=== PATIENT | male | born 1955 | race Hispanic/Latino ===

== ENCOUNTER 2018-04-09 07:27 | Inpatient (IN) | payer MEDICARE ==
[~2018-04-09] VITALS: Ht 172.7 cm; Wt 71.8 kg
[2018-04-09 07:59] LABS: BASOPHILS # (AUTO) 0.1 (0.0-0.1); BASOPHILS % 0.3 % (0.0-1.0); EOSINOPHILS # (AUTO) 0.4 (0.0-0.4); EOSINOPHILS % 2.7 % (0.0-6.0); HEMATOCRIT 26.4 % (38.2-49.6); HEMOGLOBIN 8.1 g/dL (14.0-18.0); LYMPHOCYTES % 12.4 % (18.0-39.1); MEAN CORPUSCULAR HEMOGLOBIN 27.9 pg (28-32); MEAN CORPUSCULAR HGB CONC 30.7 g/dL (31-35); MONOCYTES % 6.4 % (4.4-11.3); NEUTROPHILS # (AUTO) 12.6 (2.1-6.9); NEUTROPHILS % 77.5 % (38.7-80.0); PLATELET COUNT 648 x10e3/uL (140-360)
[2018-04-09] MEDS ORDERED: INSULIN REGULAR, HUMAN 100 UNIT/1 ML 3ML VIAL SQ ONE (08:15)
[2018-04-09 08:19] LABS: ALANINE AMINOTRANSFERASE 35 IU/L (0-55); ALBUMIN 1.4 g/dL (3.5-5.0); ALBUMIN/GLOBULIN RATIO 0.2 (0.8-2.0); ALKALINE PHOSPHATASE 93 IU/L (40-150); ANION GAP 16.6 mmol/L (8-16); BLOOD UREA NITROGEN 40 mg/dL (7-26); BUN/CREATININE RATIO 11 (6-25); CALCIUM 9.4 mg/dL (8.4-10.2); CARBON DIOXIDE 20 mmol/L (22-29); CHLORIDE 104 mmol/L (98-107); CREATININE, SERUM 3.52 mg/dL (0.72-1.25); EST GLOMERULAR FILTRATION RATE 18 ML/MIN (60-); GLUCOSE 368 mg/dL (74-118); POTASSIUM 4.6 mmol/L (3.5-5.1); SODIUM 136 mmol/L (136-145)
[2018-04-09 08:39] LABS: ABG HCO3 17 mmol/L (23-28); ABG PCO2 28 mmHg (41-51); ABG PO2 113 mmHg (80-105)
--- NOTE | 2018-04-09 08:39 | Diagnostic Imaging Report ---
EXAM: CHEST 2 VIEWS, PA and lateral DATE: 04/09/2018 Time stamp on exam: 7:57 AM INDICATION: Shortness of breath COMPARISON: None FINDINGS: LINES/TUBES: None LUNGS: Diffuse mixed alveolar and interstitial opacities are present. Findings have an appearance suggesting chronic interstitial lung disease with possible superimposed edema. PLEURA: No effusions or pneumothorax. HEART AND MEDIASTINUM: Normal size and contour. BONES AND SOFT TISSUES: No acute findings. IMPRESSION: Mixed alveolar and interstitial opacities. Signed by: Dr. Esteban Peguero DO on 04/09/2018 8:36 AM
[2018-04-09 08:58] LABS: INR 1.08
[2018-04-09 08:59] LABS: PARTIAL THROMBOPLASTIN TIME 40.4 seconds (23.8-35.5)
[2018-04-09] MEDS ORDERED: ALLOPURINOL100 MG PO (09:26)
[2018-04-09] MEDS ORDERED: NEOMYCIN-POLYMY10 ML (09:32)
[2018-04-09] MEDS ORDERED: LEVEMIR100 UNIT/1 (09:32)
[2018-04-09] MEDS ORDERED: AMLODIPINE BESYL5 MG PO (09:32)
[2018-04-09] MEDS ORDERED: LASIX20 MG PO (09:32)
[2018-04-09] MEDS ORDERED: KETOTIFEN FUMARA5 ML (09:32)
[2018-04-09] MEDS ORDERED: NOVOLOG100 UNITS1 (09:32)
[2018-04-09] MEDS ORDERED: COLCRYS0.6 MG PO (09:32)
[2018-04-09] MEDS ORDERED: RESTASIS1 EACH (09:32)
[2018-04-09] MEDS ORDERED: DEXTROSE 50% SYRINGE 50 ML IV PRN (11:00)
[2018-04-09] MEDS ORDERED: ASPIRIN 81 MG CHEW TAB PO ONE (11:00)
[2018-04-09] MEDS ORDERED: SODIUM CHLORIDE FLUSH 10 ML SYR INJ PRN (11:00)
--- OUTSIDE RECORDS SUMMARY | 2018-04-09 11:11 | XMS REPORT ---
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 Allergies, Adverse Reactions, Alerts This patient has no known allergies or adverse reactions. Medications This patient has no known medications. Results Test Description Test Time Test Comments Text Results Atomic Results Result Comments CHEST 2 VIEWS 2018-04-09 08:34:00 [facility] [address] [place] [address] Patient Name: NELSON COSTELLO MR #: [id number] : 1955 Age/Sex: 62/M Req #: [id number] Adm Physician: Ordered by: RALPH EDWARDS MD Report #: [id number] Location: ER Room/Bed: Procedure: [id number] DX/CHEST 2 VIEWS Exam Date: 04/09/18 Exam Time: 0806 REPORT STATUS: Signed EXAM: CHEST 2 VIEWS, PA and lateral DATE: 04/09/2018 Time stamp on exam: 7:57 AM INDICATION: Shortness of breath COMPARISON: None FINDINGS: LINES/TUBES: None LUNGS: Diffuse mixed alveolar and interstitial opacities are present. Findings have an appearance suggesting chronic interstitial lung disease with possible superimposed edema. PLEURA: No effusions or pneumothorax. HEART AND MEDIASTINUM: Normal size and contour. BONES AND SOFT TISSUES: No acute findings. IMPRESSION: Mixed alveolar and interstitial opacities. Signed by: Dr. Brittany Peguero DO on 04/09/2018 8:36 AM Dictated By: BRITTANY PEGUERO DO 5 Transcribed By: ALONSO on 04/09/18835 COPY TO: RALPH EDWARDS MD
--- NOTE | 2018-04-09 11:31 | Diagnostic Imaging Report ---
EXAM: CT Chest WITHOUT contrast 04/09/2018 10:04 AM INDICATION: Shortness of breath COMPARISON: Chest x-ray, 04/09/2018 TECHNIQUE: Chest was scanned utilizing a multidetector helical scanner from the lung apex through the level of the adrenal glands without administration of IV contrast. Absence of intravenous contrast decreases sensitivity for detection of lymphadenopathy and vascular pathology. Coronal and sagittal reformations were obtained. Routine protocol was performed. Dose modulation, iterative reconstruction, and/or weight based adjustment of the mA/kV was utilized to reduce the radiation dose to as low as reasonably achievable. IV CONTRAST: None RADIATION DOSE: Total DLP: 497.00 mGy*cm Estimated effective dose: (DLP x 0.014 x size factor) mSv COMPLICATIONS: None FINDINGS: LINES/ TUBES: None. LUNGS AND AIRWAYS: There is diffuse interstitial thickening in the lungs, greater on the right, with mild subpleural sparing. No alveolar edema or discrete mass. There is moderate bronchiectasis. Trachea and main bronchi are clear. PLEURA: No pleural effusion, pneumothorax or pleural calcification. HEART AND MEDIASTINUM: The thyroid gland is normal. No mediastinal, hilar or axillary lymphadenopathy. Small scattered mediastinal nodes measuring up to 7 mm precarinal. The heart is normal in size.. There is no pericardial effusion. No thoracic aortic dilatation. Main pulmonary artery measures 2.6 cm, nondilated. Extensive coronary artery calcifications are present. UPPER ABDOMEN: Included portions of the unenhanced liver, spleen, pancreas, adrenals, kidneys and gallbladder are unremarkable. BONES: No acute or suspicious bony lesions. There are degenerative changes in the thoracic spine. SOFT TISSUES: Superficial surrounding soft tissue unremarkable. IMPRESSION: 1. Pulmonary findings suggest neuropathic pulmonary fibrosis, less likely findings related to connective tissue disorder or edema. No pleural effusion. 2. Heart size normal. Extensive coronary artery calcifications. No dilatation of the main pulmonary artery. Signed by: Dr. Conrad Conrad M.D. on 04/09/2018 11:28 AM
[2018-04-09] MEDS: ALBUTEROL SULF 0.083% NEB SOLN 3 ML NEB NEB SCH ×2 (11:45→18:38)
[2018-04-09] MEDS: IPRATROPIUM BROMIDE 0.02% 2.5 ML NEB NEB SCH ×2 (11:45→19:38)
[2018-04-09] MEDS ORDERED: INSULIN REGULAR, HUMAN 100 UNIT/1 ML 3ML VIAL IV ONE (12:15)
[2018-04-09] MEDS: CEFEPIME 1GM/NS 0.9% 50 ML 50 ML IV SCH (12:38)
[2018-04-09] MEDS: AZITHROMYCIN 250 MG TAB PO SCH (13:31)
--- NOTE | 2018-04-09 15:58 | NUR ---
DR TARIQ NOTIFIED OF PT BS 399-GIVE 10 UNITS LISPRO INSULIN
[2018-04-09] MEDS: INSULIN LISPRO 100 UNIT/1 ML 3ML VIAL SQ SCH ×2 (16:06→21:50)
[2018-04-09] MEDS ORDERED: ENOXAPARIN SOD INJ 40 MG/0.4 ML SYR SC SCH (17:00)
[2018-04-09 17:33] VITALS: BP 119/58
--- NOTE | 2018-04-09 17:52 | NUR ---
PATIENT ARRIVED ON THE UNIT AT 1715 FROM THE ER PER BED. PATIENT IS AWAKE, ALERT, AND IN STABLE CONDITION WITH NO S/S OF RESPIRATORY DISTRESS. PATIENT C/O LEFT SHOULDER/BACK PAIN 10/19. IV SALINE LOCKED. 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 TELEMETRY APPLIED. SKINS INTACT. BED ALARM APPLIED. CALL LIGHT IS WITHIN REACH, PATIENT INSTRUCTED TO CALL FOR ASSISTANCE NEEDED.
[2018-04-09] MEDS ORDERED: INFLUENZA VIRUS VAC SPLIT INJ 0.5 ML SYR IM SCH (18:11)
--- NOTE | 2018-04-09 18:20 | NUR ---
CALLED AND SPOKE WITH DR. TARIQ REGARDING PATIENT'S PAIN AND PAIN LEVEL- NEW ORDER RECEIVED. SPOKE TO DR. TARIQ REGARDING PATIENT'S BLOOD GLUCOSE- NEW ORDER RECEIVED. DR. TARIQ IS IN FORMED PATIENT IS REQUESTING FOR VACCINES- OKAY TO GIVE.
[2018-04-09] MEDS: HYDROCODONE/APAP 5MG-325MG TAB PO PRN (18:46)
--- NOTE | 2018-04-09 19:15 | NUR ---
Completed bedside report with morning nurse. Pt alert and orient to name. Pt lying in bed HOB 45 degrees. Denies pain at this time. No acute distress noted. Family at bedside. Call arreola within reach. Will continue to monitor.
[2018-04-09] MEDS ORDERED: PNEUMOCOCCAL VACCINE POLYVALENT 23 MCG/0.5 ML VIAL IM SCH (19:30)
--- NOTE | 2018-04-09 19:31 | NUR ---
PATIENT IS RESTING IN BED- IN STABLE CONDITION WITH NO S/S OF RESPIRATORY DISTRESS. NORCO MEDICATION RECENTLY GIVEN TO PATIENT. TELEMETRY APPLIED. BED ALARM APPLIED. FAMILY MEMBERS PRESENT IN ROOM. BED ALARM ON. CALL LIGHT IS WITHIN REACH, PATIENT INSTRUCTED TO CALL FOR ASSISTANCE NEEDED. REPORT GIVEN TO ONCOMING NURSE.
[2018-04-09 19:50] VITALS: BP 129/61
[2018-04-09 20:40] VITALS: BP 129/61
--- NOTE | 2018-04-09 20:52 | NUR ---
Pulmonary consult [id number] [facility] MD: Saulo PCP: Gilma Sanchez thank you for the interesting consult.
[2018-04-09] MEDS ORDERED: INSULIN GLARGINE 100 UNITS/ML VIAL SQ SCH (21:00)
[2018-04-09] MEDS ORDERED: HEPARIN SOD (PORCINE) 5,000 UNIT/ML VIAL SC SCH (21:00)
[2018-04-09 23:30] VITALS: BP 133/69
[2018-04-10] MEDS: IPRATROPIUM BROMIDE 0.02% 2.5 ML NEB NEB SCH ×4 (00:50→19:42)
[2018-04-10] MEDS: ALBUTEROL SULF 0.083% NEB SOLN 3 ML NEB NEB SCH ×4 (00:50→19:42)
[2018-04-10] MEDS: CEFEPIME 1GM/NS 0.9% 50 ML 50 ML IV SCH ×2 (01:00→12:47)
[2018-04-10] MEDS ORDERED: SODIUM CHLORIDE 0.9% 250ML 250 ML ONE (01:32)
--- NOTE | 2018-04-10 02:42 | Consultation ---
DATE OF CONSULTATION: 04/09/2018 Pulmonary Medicine Consult Note REFERRING PHYSICIAN: Dr. Ric Vernon. PRIMARY CARE PHYSICIAN: Dr. Jayashree Sanchez, Gilma Chin. REASON FOR REFERRAL: Abnormal chest radiography. HISTORY OF PRESENT ILLNESS: Mr. Joseph is a pleasant 62-year-old gentleman with abnormal chest radiography. The patient presented to [facility] on April 09, 2018. The patient had complained of dyspnea. Onset was 15 days ago. Worsening. The patient denies any hemoptysis. No chronic cough. No phlegm. There are allergies, but no GERD and no asthma. The patient is smoking. There is some chronic kidney disease that is under assessment and workup. There is some blindness that the patient deals with. He just saw the doctor who has diagnosed this as retinopathy possibly. The patient has never had knowledge of a previous chest ailment. He thinks his last chest x-ray was about three years ago and he feels it was probably clear, as he was never told anything about it. He comes to the emergency room. Chest x-ray with bilateral diffuse opacities. CT chest shows diffuse thick opacities with a slightly predominant perilymphatic distribution with some reticular spread as well and these are bilateral and diffuse throughout the lungs. There are small areas of honeycombing, mostly in the right upper lobe. There was not a lot of ground-glass opacities. No pets. No known animal exposures. 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 He did not have significant exposures to noxious substances. 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 He was born in [place], [place] and lived in [place], but mostly lived in cities. In the emergency room, 7.39/27/113/17. Oxygen saturation in the emergency room was 91%. PAST MEDICAL HISTORY: Gout, diabetes, hyperlipidemia, hypertension, retinopathy, and chronic eye dryness. HOME MEDICATIONS: Medicine list per record. Include allopurinol for two years. Other blood pressure medicines. ALLERGIES: PENICILLINS REPORTED. FAMILY HISTORY: Noncontributory to this. SOCIAL HISTORY: The patient smoked from age 17 to 62, quitting one month ago. He has 1/4 pack per day over this time. No heavy alcohol. No drugs. REVIEW OF SYSTEMS: GENERAL: No weight change. OPHTHALMOLOGIC: No double vision. ENT: No thyroid disorder. PULMONARY: No hemoptysis. CARDIAC: No heart attack. GI: No constipation. : No blood in urine. DERMATOLOGIC: No rashes. IMMUNOLOGIC: No vasculitis. No connective tissue disease known. NEUROLOGIC: No seizures. PSYCHIATRIC: No depression. PHYSICAL EXAMINATION: VITAL SIGNS: Currently afebrile, vital signs noted and reviewed per the chart record. GENERAL: In no acute distress, alert and calm. HEENT: Normocephalic and atraumatic. NECK: Supple. Throat midline. LUNGS: Bilateral air entry is good, bilateral rales throughout both lungs. CARDIOVASCULAR: S1 and S2. No murmurs, rubs, or gallops. ABDOMEN: Soft and nontender. EXTREMITIES: No clubbing, no cyanosis, and no edema. INTEGUMENT: No purpura and no rash. No vasculitis. PLAN: Potassium 4.6, bicarbonate 20, BUN 40, creatinine 3.5, glucose 268, white count 16, hematocrit 26, and platelets 648. PTT 40.4, PT 15.0, and INR 1.08. LFTs include albumin 1.4, globulin 5.9, and BNP 156. Calcium was 9.4. IMPRESSION/PLAN: Abnormal chest radiography, bilateral diffuse interstitial lung disease, pattern. DIFFERENTIAL DIAGNOSES: Include: 1. Sarcoidosis with other possibilities related to elevated gammaglobulins or other silica dust exposures in the past that were not very clear, less likely amyloid or idiopathic interstitial lung disease. There are other possibilities that are less likely. Cannot rule out drug reaction, as I do not have full list of his home medicines. Less likely pulmonary lymphangiomatosis. 2. Gammaglobulin elevation. 3. Severe protein malnutrition. 4. History of allergies. 5. History of gout. 6. Retinopathy reported. 7. Chronic eye dryness reported, rule out other ailments that may be associated. 8. Hypertension. 9. Hyperlipidemia. 10. Diabetes. 11. Chronic smoker. 12. Screen for connective tissue diseases. Check HIV screen. Check VENUS level in case this is found useful to some. 13. Urinalysis to check for red blood cells. Consider assessing the globulins for any proliferative disorder. If initial studies are unremarkable, consideration can be for invasive procedures, including bronchoscopy if we wish to look for sarcoidosis, especially an infection, although infection seems little bit less likely. Consideration may also be for surgical lung biopsy in the appropriate clinical situation. Screen the sputum for phlegm and culture. Thank you very much, Dr. Vernon and Dr. Sanchez for allowing me the chance to participate in the care of Mr. Joseph. Do not hesitate to contact me if I can help in any way. Dr. Sunday Guzman to cover tomorrow. MD RACHAEL Luke/MODL /[id number]
[2018-04-10 05:45] VITALS: BP 148/71
--- NOTE | 2018-04-10 05:56 | Diagnostic Imaging Report ---
EXAMINATION: CHEST SINGLE (PORTABLE) COMPARISON: CT chest and chest x-ray 04/09/2018 INDICATION: ^PNEUMONIA ^[id number] ^0538 ^Y DISCUSSION: Frontal view of the chest obtained at 0528 hours. HEART AND MEDIASTINUM: The cardiomediastinal silhouette is stable. LINES: None. LUNGS: Widespread interstitial thickening is redemonstrated and similar. No new findings in either lung. PLEURA: No pleural effusion or pneumothorax. BONES AND SOFT TISSUES: Mild degenerative changes of the spine. No focal osseous lesion. The soft tissues are normal. IMPRESSION: Widespread interstitial thickening suggestive of pulmonary fibrosis. No new findings. Signed by: Dr. Jojo Hensley MD on 04/10/2018 5:53 AM
[2018-04-10 06:29] LABS: BASOPHILS % 0.3 % (0.0-1.0); EOSINOPHILS # (AUTO) 0.3 (0.0-0.4); EOSINOPHILS % 2.4 % (0.0-6.0); HEMATOCRIT 22.7 % (38.2-49.6); LYMPHOCYTES # (AUTO) 1.2 (1.0-3.2); LYMPHOCYTES % 8.5 % (18.0-39.1); MEAN CORPUSCULAR HEMOGLOBIN 27.7 pg (28-32); MEAN CORPUSCULAR HGB CONC 30.8 g/dL (31-35); MEAN CORPUSCULAR VOLUME 89.7 fL (81-99); MONOCYTES % 6.6 % (4.4-11.3); NEUTROPHILS # (AUTO) 11.7 (2.1-6.9); NEUTROPHILS % 81.7 % (38.7-80.0); PLATELET COUNT 533 x10e3/uL (140-360); RED BLOOD COUNT 2.53 x10e6/uL (4.3-5.7); RED CELL DISTRIBUTION WIDTH 14.2 % (11.7-14.4)
[2018-04-10 06:46] LABS: CALCIUM 8.8 mg/dL (8.4-10.2); CREATININE, SERUM 3.46 mg/dL (0.72-1.25)
[2018-04-10 07:07] LABS: % IRON SATURATION 8 % (15-50); IRON 19 ug/dL (65-175); TOTAL IRON BINDING CAPACITY 228 ug/dL (261-478); TRANSFERRIN 163 mg/dL (174-364)
[2018-04-10 07:32] LABS: CREATINE KINASE 65 IU/L (30-200)
[2018-04-10 07:42] VITALS: BP 140/75
[2018-04-10 07:50] LABS: HIV 1&2 AB SCREEN NON-REACTIVE (NONREACTIVE)
[2018-04-10] MEDS ORDERED: INFLUENZA VIRUS VAC SPLIT INJ 0.5 ML SYR IM ONE (09:00)
[2018-04-10] MEDS ORDERED: PNEUMOCOCCAL VACCINE POLYVALENT 23 MCG/0.5 ML VIAL IM ONE (09:00)
[2018-04-10] MEDS: AZITHROMYCIN 250 MG TAB PO SCH (09:04)
[2018-04-10 09:06] VITALS: BP 140/75
[2018-04-10] MEDS: INSULIN LISPRO 100 UNIT/1 ML 3ML VIAL SQ SCH ×4 (09:06→22:04)
--- NOTE | 2018-04-10 09:06 | NUR ---
Pt received resting in bed. Alert and oriented x4 but legally blind. Oriented to staff and surroundings, encouraged to press call arreola if help needed. Emotional support given. Fall precautions maintained. Will monitor
[2018-04-10 11:49] VITALS: BP 122/69
[2018-04-10] MEDS ORDERED: SODIUM CHLORIDE 0.9% 50ML 50 ML ONE (12:11)
[2018-04-10] MEDS: IRON SUCROSE 100 MG in SODIUM CHLORIDE 0.9% 100 ML 100 ML IV SCH (14:27)
[2018-04-10] MEDS ORDERED: FUROSEMIDE INJ 10 MG/ML 2 ML VIAL IV PRN (14:45)
--- NOTE | 2018-04-10 14:48 | Progress Note ---
DATE: Pulmonary Critical Care Progress Note I am covering for Dr. Mayes today. SUBJECTIVE: The patient reports some improvement after receiving oxygen and antibiotics. He still has some cough and congestion. OBJECTIVE: VITAL SIGNS: The patient is afebrile. The blood pressure is 122/70 and the pulse is 105. The respiratory rate is 22 and the saturation is 100% on 3 L. HEENT: Shows no facial swelling or erythema. The nasal mucosa is normal. The oropharynx is normal. LYMPHATIC: Shows no submandibular, cervical, or supraclavicular adenopathy. CARDIAC: Reveals a regular rate and rhythm with a normal S1 and S2. LUNGS: Auscultation of lungs reveals crackles in both lung islas. There is no wheezing. ABDOMEN: Soft and nontender. There is no rebound or guarding. EXTREMITIES: Show no leg edema or calf tenderness. There is no cyanosis or clubbing. SKIN: Shows no rashes. NEUROLOGICAL: Shows no focal abnormalities. LABORATORY DATA: White blood count is 14.3 with a hemoglobin of 7 and an MCV of 89. The platelet count is 533. The BUN to creatinine ratio is 40 to 3.5 with a bicarbonate of 20. The calcium is 9.5, the albumin is 1.4, and the globulin is 5.9. Blood sugars are in the 300 to 350 range. Blood gas is 7.4, 28, 113, and 17. RADIOGRAPHIC DATA: CT scan of the chest shows diffuse interstitial thickening in the lungs, more on the right than the left. There is moderate bronchiectasis seen. IMPRESSION: 1. Pulmonary fibrosis and bronchiectasis of unclear etiology. 2. Acute on chronic renal failure. 3. Diabetes. 4. Hypoalbuminemia and proteinuria. 5. Diabetic retinopathy. 6. Hypertension. 7. Normochromic normocytic anemia. PLAN: 1. The bronchiectasis and lymphatic distribution of the fibrosis suggest a possible indolent infectious etiology. Consider bronchoscopy to evaluate for indolent infections. 2. Nephrology evaluation with 24-hour urine for protein. 3. ANCA and other serologies for hepatorenal syndrome. 4. Consider transfusion for anemia. 5. Echocardiogram. 6. Case discussed with the patient, family, and Dr. Vernon. Sunday Guzman MD SIDRA/MODOmar /[id number]
--- NOTE | 2018-04-10 15:10 | NUR ---
Pt stood up to give urine sample, and Sat 89% on 3L NC. Emotional support given. Pt taught deep breathing exercises. Sat 93%. Dr. Mimi Guzman notified, and stated that pt needs one unit of PRBC transfusion, and Lasix [address] Vernon notified, and agrees for blood transfusion. Will follow up
[2018-04-10 15:18] LABS: CLARITY,URINE CLEAR (CLEAR); COLOR,URINE YELLOW (YELLOW); LEUKOCYTE ESTERASE ,URINE NEGATIVE (NEGATIVE); NITRITE,URINE NEGATIVE (NEGATIVE); PROTEIN,URINE DIPSTICK 3+ (NEGATIVE)
[2018-04-10 15:19] LABS: BILIRUBIN,URINE NEGATIVE (NEGATIVE); KETONES,URINE NEGATIVE (NEGATIVE); URINE UROBILINOGEN 0.2 mg/dL (0.2 - 1)
[2018-04-10] MEDS ORDERED: SODIUM CHLORIDE 0.9% 250ML 250 ML IV ONE (15:30)
[2018-04-10 15:57] LABS: AMORPHOUS SEDIMENT,URINE FEW (FEW); EPITHELIAL CELLS,URINE RARE /LPF; RBC,URINE 0-5 /HPF (0-5)
--- NOTE | 2018-04-10 16:10 | NUR ---
Consent obtained for blood transfusion. Will start transfusion as soon as blood is ready
[2018-04-10 16:17] VITALS: BP 147/79
--- NOTE | 2018-04-10 17:20 | NUR ---
First unit of blood transfusion started at 1705. Blood verified by two nurses. Unit number [id number]. No untoward reaction noted after 15 minutes. Will monitor
--- NOTE | 2018-04-10 17:35 | NUR ---
No untoward reaction noted after 30 minutes of blood transfusion. Emotional support given. Will endorse to next shift
--- NOTE | 2018-04-10 19:05 | NUR ---
Bedside rounds completed with morning nurse. Pt alert and orient. Pt receiving 1 unit of blood in 20g right FA, vs stable at 2 hours of admin. Pt denies SOB, O2 at 2L via NC. Pt denies pain at this time. No chills, fever, or changes in health status. Call arreola within reach family at bedside. Will continue to monitor.
[2018-04-10 19:22] LABS: CREATININE,URINE RANDOM 96.61 mg/dL (63-166)
[2018-04-10 19:48] LABS: TOTAL PROTEIN, URINE 592.4 mg/dL (1-14)
--- NOTE | 2018-04-10 20:05 | NUR ---
Pt alert and orient. Receiving neb tx. Pt receiving 1 unit of blood in 20g right FA, vs stable at 3 hours of admin. Pt denies SOB, O2 at 2L via NC. Pt denies pain at this time. No chills, fever, or changes in health status. Call arreola within reach family at bedside. Will continue to monitor.
--- NOTE | 2018-04-10 20:35 | NUR ---
Blood transfusion complete. VS stable. Lasix 20mg IV admin. Pt without fever, chills, or diaphoresis. No n/v/d. Pt denies muscle aches, back pain or chest pain. Lungs CTA. Pt denies pain at this time. Family at bedside. Call arreola within reach. Will continue to monitor.
[2018-04-10 20:50] VITALS: BP 144/75
[2018-04-10] MEDS ORDERED: INSULIN GLARGINE 100 UNITS/ML VIAL SQ SCH (21:00)
--- NOTE | 2018-04-10 21:10 | NUR ---
Nurse called to room. After trying to sit up on side of bed Pt diaphoretic, c/o SOB, rapid uneven respirations. O2 sat decrease to 80% on 2L via NC. Increased O2 6L via NC. Pt breathing with mouth open, anxious. Instructed Pt to slow respirations by inhaling slowly, holding inspiration for a few seconds, and exhaling through pursed lips. O2 increased 94%. Dr. Darling came to room, ordered ABG gases, Lasix 80mg IV, Romero if Pt agrees, call Dr. Mayes for further orders. Pt stable. Call arreola within reach. Family at bedside will continue to monitor.
[2018-04-10] MEDS ORDERED: FUROSEMIDE INJ 10 MG/ML 4 ML VIAL IV ONE (21:30)
--- NOTE | 2018-04-10 21:34 | NUR ---
Dr. Mayes ordered [facility] transfer. ABG drawn by RT, pt tolerated. RT applied non rebreather at 100%. Resp decreased, even and unlabored. Pt stated, "I'm feeling better". HOB 90 degrees. Comforted, Pt calm. No acute distress noted. Pt refused Romero. Call arreola within reach. Family at bedside. Will continue to monitor.
[2018-04-10 21:55] LABS: ABG HCO3 16 mmol/L (23-28); ABG PCO2 27 mmHg (41-51); ABG PH 7.38 (7.31-7.41); ABG PO2 93 mmHg (80-105)
--- NOTE | 2018-04-10 22:00 | NUR ---
Dr. Darling aware of ABG results. Encouraged Romero to reduce Pt OOB as doctor ordered. Attempted to aseptically insert Romero 16fr, Pt stated too painful, removed catheter. Encouraged to use urinal in bed or temporary use of diaper. Pt and family agreed. Pt c/o nonrebreather at 100% too much O2 and drying eyes. Changed to 6L via NC, O2 sat 95%. Pt stable at this. Call arreola within reach. Family at bedside. Will continue to monitor.
--- NOTE | 2018-04-10 23:30 | NUR ---
Report given to [facility] nurse. Pt stable. No acute distress noted. Resting in bed with eyes closed. Call arreola within reach.
--- NOTE | 2018-04-10 23:30 | NUR ---
Received report from nurse. Patient coming from 291 into 187.
[2018-04-11] VITALS (8 sets, daily range): BP systolic 120–140; BP diastolic 67–83
[2018-04-11] MEDS: ALBUTEROL SULF 0.083% NEB SOLN 3 ML NEB NEB SCH
--- NOTE | 2018-04-11 | NUR ---
Patient arrived to floor via stretcher. Family at bedside. Patient is vision impaired. Patient denies pain at this time.
--- NOTE | 2018-04-11 00:45 | NUR ---
Patient offered eagle as Dr ordered. Patient refused eagle at this time. Using urinal.
[2018-04-11] MEDS: IPRATROPIUM BROMIDE 0.02% 2.5 ML NEB NEB SCH ×4 (00:50→18:45)
[2018-04-11] MEDS ORDERED: SODIUM CHLORIDE 0.9% 250ML 250 ML ONE (00:52)
[2018-04-11] MEDS: CEFEPIME 1GM/NS 0.9% 50 ML 50 ML IV SCH ×2 (01:00→12:25)
[2018-04-11 06:00] LABS: BASOPHILS # (AUTO) 0.1 (0.0-0.1); BASOPHILS % 0.3 % (0.0-1.0); EOSINOPHILS # (AUTO) 0.4 (0.0-0.4); EOSINOPHILS % 2.5 % (0.0-6.0); HEMATOCRIT 25.9 % (38.2-49.6); HEMOGLOBIN 8.2 g/dL (14.0-18.0); LYMPHOCYTES # (AUTO) 1.2 (1.0-3.2); LYMPHOCYTES % 8.4 % (18.0-39.1); MEAN CORPUSCULAR HEMOGLOBIN 27.9 pg (28-32); MEAN CORPUSCULAR HGB CONC 31.7 g/dL (31-35); MEAN CORPUSCULAR VOLUME 88.1 fL (81-99); MONOCYTES # (AUTO) 1.1 (0.2-0.8); MONOCYTES % 7.3 % (4.4-11.3); NEUTROPHILS # (AUTO) 11.9 (2.1-6.9); NEUTROPHILS % 80.8 % (38.7-80.0); PLATELET COUNT 514 x10e3/uL (140-360); RED BLOOD COUNT 2.94 x10e6/uL (4.3-5.7); RED CELL DISTRIBUTION WIDTH 14.6 % (11.7-14.4)
[2018-04-11 06:26] LABS: ALBUMIN 1.3 g/dL (3.5-5.0); ALBUMIN/GLOBULIN RATIO 0.2 (0.8-2.0); ANION GAP 14.8 mmol/L (8-16); CALCIUM 9.1 mg/dL (8.4-10.2); CREATININE, SERUM 3.46 mg/dL (0.72-1.25); POTASSIUM 3.8 mmol/L (3.5-5.1)
--- NOTE | 2018-04-11 06:39 | NUR ---
Patient resting quitly in bed with no c/o at this time. Continue monitor.
[2018-04-11 06:57] LABS: ALBUMIN 1.3 g/dL (3.5-5.0); BILIRUBIN,DIRECT 0.2 mg/dL (0.0-0.5)
[2018-04-11 07:31] LABS: FERRITIN 364.87 ng/mL (21.81-274.66)
[2018-04-11] MEDS: INSULIN LISPRO 100 UNIT/1 ML 3ML VIAL SQ SCH ×4 (08:35→20:35)
[2018-04-11] MEDS: AZITHROMYCIN 250 MG TAB PO SCH (08:40)
[2018-04-11] MEDS: IRON SUCROSE 100 MG in SODIUM CHLORIDE 0.9% 100 ML 100 ML IV SCH (13:30)
[2018-04-11] MEDS: FUROSEMIDE INJ 10 MG/ML 4 ML VIAL IV SCH (15:29)
--- NOTE | 2018-04-11 15:41 | NUR ---
Nutrition Screen Note RD Recommendation for Physician: Continue diet as ordered Plan of Care: RD following, monitoring for adequacy and tolerance Nutrition reason for involvement: Nutrition Risk Trigger - MST Primary Diagnose(s): CKD Hypoxemia Ht:68 in Wt:171lbs BMI:26 kg/m2 IBW:154lbs RD Assessment:(04/11/2018) Initial encounter with patient. Pt has a Hx of gout and states that he avoids beef and fish. He also watches his CHO intake due to hyperglycemia. Pt denies any difficulty chewing or swallowing or N,V, D Current Diet:1800 ADA diet Malnutrition Evaluation (04/11/2018) The patient does not meet criteria for a specified degree of malnutrition at this time. Will re-evaluate at follow-up as appropriate. Diet Education Needs Assessment: Diet education not indicated. Diet Adequacy: Meeting calorie needs, Meeting protein needs, Meeting fluid needs Tolerance: Tolerating PO Nutrition Care Level:janki Waldron RD, LD, CNSC
[2018-04-11 17:11] LABS: ANION GAP 16.9 mmol/L (8-16); CALCIUM 9.3 mg/dL (8.4-10.2); CREATININE, SERUM 3.36 mg/dL (0.72-1.25); POTASSIUM 3.9 mmol/L (3.5-5.1)
--- NOTE | 2018-04-11 18:24 | Progress Note ---
DATE: Pulmonary Progress Note SUBJECTIVE: The patient required a unit of blood yesterday. He was transferred to the [facility]. He feels a little better. He has less dizziness and slight improvement in his dyspnea. OBJECTIVE: VITAL SIGNS: The patient is afebrile. The blood pressure is 125/67. Pulse ox is 100% on 4 L. HEENT: Shows no facial swelling or erythema. The nasal mucosa is normal. The oropharynx is normal. LYMPHATIC: Shows no submandibular, cervical, or supraclavicular adenopathy. CARDIAC: Reveals a regular rate and rhythm with a normal S1 and S2. There are no murmurs or rubs. CHEST: Auscultation of lungs reveals crackles in both lung islas. ABDOMEN: Soft, nontender. There is no rebound or guarding. EXTREMITIES: Shows no leg edema or calf tenderness. There is no cyanosis or clubbing. SKIN: Shows no rashes. ASSESSMENT: 1. Pulmonary fibrosis with bronchiectasis of unclear etiology. 2. Nephrotic syndrome. 3. 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 4. Diabetes. 5. Diabetic retinopathy. 6. Anemia. 7. Hypertension. PLAN: 1. The patient is scheduled for bronchoscopy tomorrow along with transbronchial biopsies. 2. The patient will receive DDAVP along with FFP prior to the procedure. 3. Vasculitis serologies and antiglomerular basement membrane antibodies are pending. 4. The patient is going to have a 24-hour urine for protein. 5. [facility] 6. Case discussed with the patient's family, nursing, and Dr. Vernon. 7. Case discussed with Dr. Darling of Nephrology. MD SIDRA Ortiz/VASQUEZ /[id number]
--- NOTE | 2018-04-11 19:04 | NUR ---
Received change of shift report from AM nurse. Report given.
[2018-04-11] MEDS: INSULIN GLARGINE 100 UNITS/ML VIAL SQ SCH (20:36)
[2018-04-12] VITALS (10 sets, daily range): BP systolic 105–124; BP diastolic 63–79
--- NOTE | 2018-04-12 | NUR ---
Patient AAOx3. Pt denies pain at this time. IV to right FA 20G dry,intact, and patent. Patient refused turning, states I turn myself. I sont need help with turning. Family at bedside. Tele SR. O2 at 5L with sat at 100%. No noted SOB at this time. Patient previously refused eagle. Using urinal per asst. Patient NPO after MN. IV to right FA 20G dry and intact. Consent signed for procedure today. BS [address] murray. Patient tolerated well.
[2018-04-12] MEDS: IPRATROPIUM BROMIDE 0.02% 2.5 ML NEB NEB SCH ×4 (00:22→19:00)
[2018-04-12] MEDS: CEFEPIME 1GM/NS 0.9% 50 ML 50 ML IV SCH ×2 (00:30→13:00)
[2018-04-12 05:05] LABS: BASOPHILS # (AUTO) 0.1 (0.0-0.1); BASOPHILS % 0.4 % (0.0-1.0); EOSINOPHILS # (AUTO) 0.5 (0.0-0.4); EOSINOPHILS % 3.4 % (0.0-6.0); HEMATOCRIT 28.6 % (38.2-49.6); HEMOGLOBIN 9.1 g/dL (14.0-18.0); LYMPHOCYTES # (AUTO) 1.6 (1.0-3.2); LYMPHOCYTES % 10.6 % (18.0-39.1); MEAN CORPUSCULAR HEMOGLOBIN 28.4 pg (28-32); MEAN CORPUSCULAR HGB CONC 31.8 g/dL (31-35); MEAN CORPUSCULAR VOLUME 89.4 fL (81-99); MONOCYTES # (AUTO) 1.1 (0.2-0.8); MONOCYTES % 6.9 % (4.4-11.3); NEUTROPHILS # (AUTO) 12.1 (2.1-6.9); NEUTROPHILS % 77.9 % (38.7-80.0); PLATELET COUNT 565 x10e3/uL (140-360); RED CELL DISTRIBUTION WIDTH 14.6 % (11.7-14.4)
[2018-04-12 05:36] LABS: CALCIUM 9.7 mg/dL (8.4-10.2); CREATININE, SERUM 3.73 mg/dL (0.72-1.25)
--- NOTE | 2018-04-12 06:47 | NUR ---
Patient resting quitly with no c/o at this time. Patient received bath and dinen change,
--- NOTE | 2018-04-12 06:55 | NUR ---
Walking rounds done. Patient is awake and alertx3 in NAD. Family at the bedside. POC discussed. Patient is aware he is NPO for planned Bronchoscopy. Bed in lowest position, locked and call arreola within reach. Will continue to monitor.
[2018-04-12] MEDS: INSULIN LISPRO 100 UNIT/1 ML 3ML VIAL SQ SCH ×4 (07:30→20:30)
--- NOTE | 2018-04-12 07:30 | NUR ---
ASSESSMENT: Spiritual concern Referred by RN. Pt worried about illness. Pt states he is "doing better than" when he arrived. Pt accepting of inability to "control this." Pt identifies as Orthodoxy. Pt states his daughters are supportive. Pt states he is thankful for his daughters who urged him to come to hospital. Intervention: Provided hospitality and unhurried empathic listening. Facilitated storytelling and illness review. Provided prayer. Provided information on how to reach bottom turner, if needed. Outcome: Pt expressed appreciation for visit. LUISITO WATSON House Decorator Spiritual Care Department O: [phone] Pager: [phone] ([phone] number calling from)
--- NOTE | 2018-04-12 08:54 | NUR ---
Patient transferred to [facility] from room 291. Holding PT services since patient is transferred to higher level of care. Will need new PT orders when appropriate. Thank you. Addendum: 04/12/18 at 0854 by Nader wharton PT Amended: Links added.
[2018-04-12] MEDS: AZITHROMYCIN 250 MG TAB PO SCH (09:00)
[2018-04-12] MEDS: FUROSEMIDE INJ 10 MG/ML 4 ML VIAL IV SCH (09:00)
--- NOTE | 2018-04-12 09:10 | NUR ---
Patient refused AM medications. He stated, "I want to rest right now and I can take them after my procedure."
--- NOTE | 2018-04-12 09:45 | NUR ---
EDUCATED ABOUT IMM, SIGNED, FILED IN CHART, WITH COPY LEFT WITH FAMILY AT BEDSIDE.
--- NOTE | 2018-04-12 10:00 | NUR ---
Dr. Vernon at the bedside making rounds. He was notified patient refused AM medications including Lasix. No new orders at this time.
[2018-04-12] MEDS ORDERED: SODIUM CHLORIDE 0.9% 250ML 250 ML ONE ×2 (10:19→13:08)
--- NOTE | 2018-04-12 10:30 | NUR ---
Reviewed labs with Dr. Darling. notified him, patient refused AM medications including Lasix. Per Lasix to be held today only and resume as ordered on 04/13/18.
--- NOTE | 2018-04-12 11:00 | NUR ---
Patient tolerated FFP as ordered. continues NPO for planned Bronchoscopy. Family at the bedside.
[2018-04-12] MEDS ORDERED: DESMOPRESSIN ACETATE 4 MCG/ML VIAL IV ONE (13:00)
[2018-04-12] MEDS ORDERED: SODIUM CHLORIDE 0.9% IV ONE (14:00)
[2018-04-12] MEDS ORDERED: DESMOPRESSIN ACETATE IV ONE (14:00)
[2018-04-12] MEDS: IRON SUCROSE 100 MG in SODIUM CHLORIDE 0.9% 100 ML 100 ML IV SCH (14:25)
--- NOTE | 2018-04-12 16:09 | NUR ---
Patient off unit for Bronchoscopy. family at the bedside.
[2018-04-12] MEDS ORDERED: LIDOCAINE HCL 4% 50 ML BTL ONE (16:49)
[2018-04-12] MEDS ORDERED: ACETYLCYSTEINE 200 MG/ML 4ML VIAL ONE (16:49)
[2018-04-12] MEDS ORDERED: EPINEPHRINE HCL 1:1000 1ML 1 MG/ML AMP ONE (16:49)
[2018-04-12] MEDS ORDERED: OXYMETAZOLINE HCL 0.05% NAS 1 SPRAY BTL ONE (16:50)
[2018-04-12] MEDS ORDERED: LIDOCAINE HCL 2% LOCAL INJ 5 ML SDV VIAL INJ ONE (18:12)
[2018-04-12] MEDS ORDERED: PROPOFOL IV EMULSION 10 MG/ML 50 ML VIAL ONE (18:12)
[2018-04-12] MEDS ORDERED: PHENYLEPHRINE HCL 0.5% NASAL 15 ML BTL ONE (18:15)
[2018-04-12] MEDS ORDERED: FENTANYL CITRATE/PF 100MCG/2 ML INJ ONE (18:27)
--- NOTE | 2018-04-12 18:40 | NUR ---
Patient returned from Bronchoscopy. He is fully awake, c/o of non productive cough, and O2 at 5L NC, 94% O2 saturation. Per patient breathing is improved. Family at the bedside. Both patient and family instructed to call for assistance as needed and verbalized understanding. Call arreola within reach. Vital signs are stable.
--- NOTE | 2018-04-12 19:08 | NUR ---
Report received from AM RN Gretchen.Patient received alert/oriented x3.Patient was legally blind. Denied pain and little SOB noted. SPO2 maintained 96% with 4liters oxygen via nasal canula. Family at the bedside. Patient instructed to call fro help as needed. Bed in lower position,locked. Call arreola within reach. Will continue to monitor.
--- NOTE | 2018-04-12 19:51 | Operative Report ---
DATE OF PROCEDURE: SURGEON: Sunday Guzman MD PROCEDURE: Bronchoscopy with bronchoalveolar lavage and transbronchial biopsy. PREOPERATIVE DIAGNOSES: Pulmonary fibrosis and bronchiectasis. POSTOPERATIVE DIAGNOSES: Pulmonary fibrosis and bronchiectasis. ASSISTANTS: None. CONSENT: Consent was obtained from the patient and the family. ANESTHESIA: The Anesthesia service provided MAC sedation and management of the airway with an LMA tube. PROCEDURE IN DETAIL: The patient was placed in supine position. His airway was secured with an LMA. The scope was advanced through the LMA. The glottis appeared normal. The scope was passed through the vocal cords. The tracheal mucosa was normal. The luisa was normal. The left tracheobronchial tree was then examined. The left upper lobe and lingula were normal to the subsegmental level. There were no endobronchial lesions. The left lower lobe was normal to the subsegmental level. There were no endobronchial lesions. Washings were obtained from the left lung. A brushing from microbiology was also obtained from the left upper lobe. The scope was then repositioned into the right tracheobronchial tree. The right upper lobe, right middle lobe, and right lower lobe were all normal to the subsegmental level. There were no endobronchial lesions. The scope was wedged into the lateral basilar subsegment of the right lower lobe. A bronchoalveolar lavage was performed. Fluoroscopy was then used to obtain transbronchial biopsies x4. A microbiology brushing was obtained in the right upper lobe. COMPLICATIONS: None. ESTIMATED BLOOD LOSS: None. Sunday Guzman MD [facility] /[id number]
--- NOTE | 2018-04-12 20:24 | Diagnostic Imaging Report ---
EXAMINATION: CHEST SINGLE (PORTABLE) COMPARISON: Chest x-ray 04/10/2018 INDICATION: Post bronchoscopy ^[id number] ^1735 ^UPRIGHT POST BRONCH TVRBO PER DR RAMOS WDT 04/12/18@1720 DISCUSSION: Frontal view of the chest obtained at 1735 hours. HEART AND MEDIASTINUM: Stable cardiomegaly and aortic ectasia LINES: None. LUNGS: Lung volumes remain low. Diffuse interstitial thickening is redemonstrated. No new findings to suggest consolidation. PLEURA: No pleural effusion or pneumothorax. BONES AND SOFT TISSUES: Osseous structures are stable. The soft tissues are normal. IMPRESSION: 1. No pneumothorax. 2. Low lung volumes in widespread interstitial thickening suggestive of pulmonary fibrosis. No new pulmonary findings. Signed by: Dr. Jojo Hensley MD on 04/12/2018 8:20 PM
[2018-04-12 20:35] LABS: BODY FLUID APPEARANCE CLEAR; BODY FLUID COLOR COLORLESS; BODY FLUID TYPE PLEURAL
[2018-04-12 20:36] LABS: RBC,BODY FLUID 10 cells/uL; WBC,BODY FLUID 9 cells/uL
[2018-04-12] MEDS: INSULIN GLARGINE 100 UNITS/ML VIAL SQ SCH (20:47)
[2018-04-12 21:11] LABS: LYMPHOCYTES,BODY FLUID 10 %; MONO/MACROPHG,BODY FLUID 10 %; NEUTROPHILS,BODY FLUID 60 %; OTHER CELLS,BODY FLUID 20 %
[2018-04-13] VITALS (8 sets, daily range): BP systolic 110–132; BP diastolic 57–70
[2018-04-13] MEDS: IPRATROPIUM BROMIDE 0.02% 2.5 ML NEB NEB SCH ×4 (00:30→18:40)
[2018-04-13] MEDS: CEFEPIME 1GM/NS 0.9% 50 ML 50 ML IV SCH ×2 (00:37→13:00)
[2018-04-13] MEDS: HYDROCODONE/APAP 5MG-325MG TAB PO PRN ×2 (05:02→23:25)
[2018-04-13 05:05] LABS: BASOPHILS # (AUTO) 0.1 (0.0-0.1); BASOPHILS % 0.6 % (0.0-1.0); EOSINOPHILS # (AUTO) 0.5 (0.0-0.4); EOSINOPHILS % 3.5 % (0.0-6.0); HEMOGLOBIN 7.8 g/dL (14.0-18.0); LYMPHOCYTES # (AUTO) 1.5 (1.0-3.2); LYMPHOCYTES % 10.8 % (18.0-39.1); MEAN CORPUSCULAR HEMOGLOBIN 28.1 pg (28-32); MEAN CORPUSCULAR HGB CONC 31.2 g/dL (31-35); MEAN CORPUSCULAR VOLUME 89.9 fL (81-99); MONOCYTES % 7.4 % (4.4-11.3); NEUTROPHILS # (AUTO) 10.5 (2.1-6.9); NEUTROPHILS % 76.8 % (38.7-80.0); PLATELET COUNT 520 x10e3/uL (140-360); RED BLOOD COUNT 2.78 x10e6/uL (4.3-5.7); RED CELL DISTRIBUTION WIDTH 14.6 % (11.7-14.4)
[2018-04-13 05:20] LABS: ANGIOTENSIN CONVERTING ENZYME 37 U/L (14-82)
[2018-04-13 05:23] LABS: INR 1.15; PROTHROMBIN TIME 15.3 seconds (11.9-14.5)
[2018-04-13 05:24] LABS: PARTIAL THROMBOPLASTIN TIME 22.5 seconds (23.8-35.5)
[2018-04-13 05:29] LABS: ALBUMIN 1.4 g/dL (3.5-5.0); ALBUMIN/GLOBULIN RATIO 0.3 (0.8-2.0); ANION GAP 16.7 mmol/L (8-16); CALCIUM 8.9 mg/dL (8.4-10.2); CREATININE, SERUM 3.67 mg/dL (0.72-1.25); PHOSPHORUS 5.5 MG/DL (2.3-4.7); POTASSIUM 3.7 mmol/L (3.5-5.1)
--- NOTE | 2018-04-13 06:39 | NUR ---
Notified Dr. Vernon about patient's Hgb:7.8.NNO.
--- NOTE | 2018-04-13 07:07 | NUR ---
Report given to AM ASHOK Argueta,walking round done.
--- NOTE | 2018-04-13 07:13 | Diagnostic Imaging Report ---
Exam: C-arm assist fluoroscopy for transbronchial lung biopsy. History: Abnormal pulmonary opacities. Comparison: Chest x-ray dated 04/10/2018 Findings: Three images were obtained and scored to the radiologic record. Right lower lung transbronchial biopsy was performed. Fluoroscopy time: 1 minute and 2 seconds Cumulative area dose product: 745.96 cGycm2 Cumulative air kerma: 45.61 mGy Impression: C-arm fluoroscopy assist for transbronchial lung biopsy. Please see the full report provided by the performing physician. Signed by: Dr. Esteban Peguero DO on 04/13/2018 7:10 AM
[2018-04-13] MEDS: INSULIN LISPRO 100 UNIT/1 ML 3ML VIAL SQ SCH ×4 (07:18→20:40)
--- NOTE | 2018-04-13 08:08 | NUR ---
pt resting in bed, no c/o pain or s/s distress. family at bedside. will continue to monitor.
--- NOTE | 2018-04-13 08:12 | NUR ---
dr porras notified of labs, per lab only 1 of 2 ffp units given, per dr porras need to clarify with dr jeter if to give remaining unit. paged .
--- NOTE | 2018-04-13 08:19 | NUR ---
per dr jeter, ffp remaining unit does not need to be admin, was to be preop
[2018-04-13] MEDS: FUROSEMIDE INJ 10 MG/ML 4 ML VIAL IV SCH (09:52)
[2018-04-13] MEDS: AZITHROMYCIN 250 MG TAB PO SCH (09:52)
--- NOTE | 2018-04-13 12:15 | NUR ---
pt ed to provide ua sample, pt spouse discarded urinal before sample obtained, pt ed to not discard any ua and notify pct/nurse. results to be called to dr de los santos. bladder scan to be done post void, pt wants to eat lunch first.
--- NOTE | 2018-04-13 13:51 | NUR ---
dr de los santos wanting labs for antiglobular basement membrane antibody and cryoglobulin, per lab has to be hand written and sent out.
--- NOTE | 2018-04-13 14:13 | NUR ---
CASE MANAGEMENT INITIAL ASSESSMENT Customer Care Coordinator to bedside to discuss plan of care with patient/family. CM/SW role and care transitions discussed. Anticipated discharge plan discussed along with duration of care. CM/SW discussed patients right to make decisions in care. CM/SW work hours given. Patient lives: Admit/Transfer: FROM HOME Hospital/ER visits since last admit:NONE POA/Emergency contact: REG COSTELLO Current/Previous Home Health: NONE PCP/Follow-up Care: DR KRYSTAL MCKINNEY Current/Previous DME: GLUCOMETER, WALKER, VISUAL AIDS Medications (referring to index hospitalization or the first time you were in the hospital)N/A a. Were changes made in your medications when you were in the hospital on [date of index hospitalization]? N/A Note: If no or not sure, please skip to question d b. Did you understand the changes? Yes No Explain: c. Were you able to obtain your new medications right away? Yes No n/a SNF only Explain: d. Were you able to take your medications like the doctor wanted you to? Yes No Explain: e. Did the hospital give you an accurate, easy to understand list of medications when you left? Yes No n/a SNF only Explain: Scale of 1-10 how comfortable does patient feel with disease management in outpatient settin Other Services: NONE Employment Status: RETIRED Areas of Concerns: NONE Referral Needs: TO BE DETERMINED Education Needs: IMM/HUNG given and signed (if applicable): Goal for discharge:HOME WITH SOON POSSIBLE CM/SW left business card at the bedside with contact information. Name and number was also written on the patients whiteboard. Patient verbalized understanding of discussion. CM will follow-up with ongoing discharge and transition of care needs.
[2018-04-13] MEDS: SODIUM CHLORIDE 1 GM TAB PO SCH ×2 (14:16→20:40)
[2018-04-13 14:34] LABS: BILIRUBIN,URINE NEGATIVE (NEGATIVE); CLARITY,URINE SL CLOUDY (CLEAR); COLOR,URINE YELLOW (YELLOW); EPITHELIAL CELLS,URINE FEW /LPF; KETONES,URINE NEGATIVE (NEGATIVE); LEUKOCYTE ESTERASE ,URINE NEGATIVE (NEGATIVE); NITRITE,URINE NEGATIVE (NEGATIVE); PROTEIN,URINE DIPSTICK 2+ (NEGATIVE); RBC,URINE 0-5 /HPF (0-5); URINE UROBILINOGEN 0.2 mg/dL (0.2 - 1); WBC,URINE (MAN) 0-5 /HPF (0-5)
[2018-04-13 16:03] LABS: ANION GAP 15.9 mmol/L (8-16); CALCIUM 9.1 mg/dL (8.4-10.2); CREATININE, SERUM 3.73 mg/dL (0.72-1.25); POTASSIUM 3.9 mmol/L (3.5-5.1)
[2018-04-13] MEDS ORDERED: METHYLPREDNISOLONE SOD SUCC 125 MG/2ML VIAL IV ONE (16:30)
[2018-04-13] MEDS: SODIUM BICARBONATE 650 MG TAB PO SCH (16:40)
--- NOTE | 2018-04-13 19:02 | Progress Note ---
DATE: Pulmonary Progress Note SUBJECTIVE: The patient still complains of dyspnea. He has some cough. PHYSICAL EXAMINATION: VITAL SIGNS: The patient is afebrile. The blood pressure is 132/69 and saturation is 98% on 4 L. HEENT: Shows no facial swelling or erythema. Nasal mucosa is normal. LYMPHATIC: Shows no submandibular, cervical, or supraclavicular adenopathy. CARDIAC: Reveals a regular rate and rhythm with a normal S1 and S2. LUNGS: Auscultation of lungs reveals rhonchorous breath sounds bilaterally. There is no wheezing. ABDOMEN: Soft and nontender. There is no rebound or guarding. EXTREMITIES: Show no leg edema or calf tenderness. There is no cyanosis or clubbing. SKIN: Shows no rashes. NEUROLOGICAL: Shows no focal abnormalities. IMPRESSION: 1. Pulmonary fibrosis with bronchiectasis of unclear etiology. 2. Chronic renal failure stage 4 to 5. 3. Hypoalbuminemia and probable nephrotic syndrome. 4. Diabetes. 5. Anemia, unspecified. 6. Hypertension. PLAN: 1. Await results from bronchoscopy. 2. Solu-Medrol x1 dose. 3. Swallowing evaluation. 4. Monitor blood counts and transfuse packed RBCs if needed. Sunday Guzman MD [facility] /[id number]
[2018-04-13] MEDS: INSULIN GLARGINE 100 UNITS/ML VIAL SQ SCH (20:37)
[2018-04-14] VITALS (13 sets, daily range): BP systolic 107–148; BP diastolic 66–83
[2018-04-14] MEDS: CEFEPIME 1GM/NS 0.9% 50 ML 50 ML IV SCH ×3 (00:28→23:40)
[2018-04-14 06:07] LABS: ALBUMIN 1.5 g/dL (3.5-5.0); ALBUMIN/GLOBULIN RATIO 0.3 (0.8-2.0); ANION GAP 19.3 mmol/L (8-16); CALCIUM 9.7 mg/dL (8.4-10.2); CREATININE, SERUM 3.59 mg/dL (0.72-1.25); POTASSIUM 4.3 mmol/L (3.5-5.1)
[2018-04-14] MEDS: IPRATROPIUM BROMIDE 0.02% 2.5 ML NEB NEB SCH ×3 (07:00→20:00)
--- NOTE | 2018-04-14 07:16 | NUR ---
Report given to oncoming nurse,walking round done.No issued noted.
[2018-04-14 07:29] LABS: BASOPHILS % 0.2 % (0.0-1.0); HEMOGLOBIN 8.7 g/dL (14.0-18.0); LYMPHOCYTES # (AUTO) 0.7 (1.0-3.2); LYMPHOCYTES % 6.7 % (18.0-39.1); MEAN CORPUSCULAR HEMOGLOBIN 28.1 pg (28-32); MEAN CORPUSCULAR HGB CONC 31.1 g/dL (31-35); MEAN CORPUSCULAR VOLUME 90.3 fL (81-99); MONOCYTES # (AUTO) 0.1 (0.2-0.8); MONOCYTES % 0.6 % (4.4-11.3); NEUTROPHILS # (AUTO) 10.1 (2.1-6.9); NEUTROPHILS % 91.6 % (38.7-80.0); PLATELET COUNT 483 x10e3/uL (140-360); RED CELL DISTRIBUTION WIDTH 14.6 % (11.7-14.4)
[2018-04-14] MEDS: INSULIN LISPRO 100 UNIT/1 ML 3ML VIAL SQ SCH ×4 (08:03→21:32)
[2018-04-14] MEDS: SODIUM CHLORIDE 1 GM TAB PO SCH ×3 (09:05→21:37)
[2018-04-14] MEDS: AZITHROMYCIN 250 MG TAB PO SCH (09:05)
[2018-04-14] MEDS: SODIUM BICARBONATE 650 MG TAB PO SCH ×2 (09:05→17:47)
[2018-04-14] MEDS: FUROSEMIDE INJ 10 MG/ML 4 ML VIAL IV SCH (09:14)
--- NOTE | 2018-04-14 14:19 | NUR ---
EDUCATED ABOUT IMM, SIGNED, FILED IN CHART, WITH COPY LEFT WITH FAMILY AT BEDSIDE.
[2018-04-14 15:12] LABS: ANION GAP 20.1 mmol/L (8-16); CALCIUM 9.2 mg/dL (8.4-10.2); CREATININE, SERUM 3.63 mg/dL (0.72-1.25); POTASSIUM 4.1 mmol/L (3.5-5.1)
--- NOTE | 2018-04-14 18:05 | Diagnostic Imaging Report ---
PROCEDURE: X-RAY MODIFIED BARIUM SWALLOW COMPARISON: None. INDICATION: Pulmonary fibrosis. Radiation Details: Fluoroscopy time: 2.6 minutes Cumulative dose: 18.4 mGy DISCUSSION: Fluoroscopic examination was performed in conjunction with speech pathology during swallowing a variety of thin and thick liquid consistencies. Provided images demonstrate laryngeal penetration without aspiration. Mild to moderate vallecular and pyriform sinus residue is noted. CONCLUSION: Modified barium swallow demonstrating laryngeal penetration without aspiration. Please refer to the speech pathology report for further details. Signed by: Dr. Josh Nichole MD on 04/14/2018 6:01 PM
--- NOTE | 2018-04-14 18:31 | Progress Note ---
DATE: Pulmonary Critical Care Progress Note SUBJECTIVE: The patient reports some improvement with Solu-Medrol yesterday, although it made his blood sugar go up. He still reports dyspnea with exertion. He has some cough. He did not complain of chest pain. There are no fevers. PHYSICAL EXAMINATION: VITAL SIGNS: The patient is afebrile. The blood pressure is 144/83 and the saturation is 96% on 3 L. The pulse is 98. HEENT: Shows no facial swelling or erythema. Nasal mucosa is normal. The oropharynx is normal. LYMPHATIC: Shows no submandibular, cervical, or supraclavicular adenopathy. CARDIAC: Reveals regular rate and rhythm with normal S1 and S2. LUNGS: Auscultation of lungs reveals crackles in both lung islas. ABDOMEN: Soft, nontender. There is no rebound or guarding. IMPRESSION: 1. Pulmonary fibrosis with bronchiectasis of unclear etiology. 2. Chronic renal failure, stage 4 to 5. 3. Hypoalbuminemia, probable nephrotic syndrome. 4. Diabetes. 5. Anemia, unspecified. 6. Hypertension. PLAN: 1. Begin Solu-Medrol 1 mg/kg daily. 2. Await results of speech pathology and swallowing evaluation. 3. Await serology results. 4. Transfuse as needed. 5. Monitor and control blood sugars. 6. Case discussed with the patient and family and Dr. Vernon. Sunday Guzman MD [facility] /[id number]
--- NOTE | 2018-04-14 19:00 | NUR ---
Report received from ASHOK adams. Patient resting on his bed.Denied pain and no SOB. No respiratory distress noted, patient continued on 4liters oxygen via nasal canula.Spo2 maintained 98% at this time..Patient in the bed.Bed in lower position,locked. Call arreola within reach. Will continue to monitor.
[2018-04-14] MEDS: INSULIN GLARGINE 100 UNITS/ML VIAL SQ SCH (21:36)
[2018-04-14] MEDS: METHYLPREDNISOLONE SOD SUCC 40 MG/ML VIAL 1ML IV SCH (21:37)
[2018-04-14] MEDS: HYDROCODONE/APAP 5MG-325MG TAB PO PRN (23:40)
[2018-04-15] VITALS (7 sets, daily range): BP systolic 120–151; BP diastolic 69–79
--- NOTE | 2018-04-15 00:30 | NUR ---
Patient complained of heart burn because of sodium chloride pills. Patient said that "I do not want to take sodium chloride any more that make me heart burn and SOB". Called RT for breathing treatment for his SOB.Patient still on 4liters oxygen via nasal canula,Spo2 maintained 99%. Will continue to monitor.
--- NOTE | 2018-04-15 01:15 | NUR ---
No C/O of heart burn and SOB at this time. Patient said he is feeling better after breathing treatment. Patient companied pain on his hand and burning on his eyes. Assisted to medicated for his pain as order and patient put eyes drops on his eyes. Will continue to monitor.
--- NOTE | 2018-04-15 05:12 | NUR ---
Offered for bed bath,patient refused at this time. Patient said that "I wanna wait and rest little more let me take bath in day time".
[2018-04-15 05:50] LABS: BASOPHILS % 0.1 % (0.0-1.0); HEMATOCRIT 26.5 % (38.2-49.6); HEMOGLOBIN 8.3 g/dL (14.0-18.0); LYMPHOCYTES # (AUTO) 0.8 (1.0-3.2); LYMPHOCYTES % 4.5 % (18.0-39.1); MEAN CORPUSCULAR HEMOGLOBIN 27.9 pg (28-32); MEAN CORPUSCULAR HGB CONC 31.3 g/dL (31-35); MEAN CORPUSCULAR VOLUME 89.2 fL (81-99); MONOCYTES # (AUTO) 0.2 (0.2-0.8); NEUTROPHILS # (AUTO) 17.7 (2.1-6.9); NEUTROPHILS % 93.8 % (38.7-80.0); PLATELET COUNT 488 x10e3/uL (140-360); RED BLOOD COUNT 2.97 x10e6/uL (4.3-5.7); RED CELL DISTRIBUTION WIDTH 14.7 % (11.7-14.4)
[2018-04-15 06:10] LABS: ALBUMIN 1.5 g/dL (3.5-5.0); ALBUMIN/GLOBULIN RATIO 0.3 (0.8-2.0); ANION GAP 16.7 mmol/L (8-16); CALCIUM 9.2 mg/dL (8.4-10.2); CREATININE, SERUM 3.85 mg/dL (0.72-1.25); POTASSIUM 4.7 mmol/L (3.5-5.1)
[2018-04-15] MEDS: IPRATROPIUM BROMIDE 0.02% 2.5 ML NEB NEB SCH ×4 (07:00→20:00)
--- NOTE | 2018-04-15 07:19 | NUR ---
Report given to ASHOK Rodriguez,walking round done.
[2018-04-15] MEDS: INSULIN LISPRO 100 UNIT/1 ML 3ML VIAL SQ SCH ×4 (07:57→21:12)
[2018-04-15] MEDS: SODIUM CHLORIDE 1 GM TAB PO SCH ×3 (09:00→21:00)
[2018-04-15] MEDS: FUROSEMIDE INJ 10 MG/ML 4 ML VIAL IV SCH (10:07)
[2018-04-15] MEDS: AZITHROMYCIN 250 MG TAB PO SCH (10:07)
[2018-04-15] MEDS: SODIUM BICARBONATE 650 MG TAB PO SCH ×2 (10:07→19:04)
[2018-04-15] MEDS: METHYLPREDNISOLONE SOD SUCC 40 MG/ML VIAL 1ML IV SCH ×2 (10:07→22:05)
[2018-04-15 11:51] LABS: CLARITY,URINE SL CLOUDY (CLEAR); COLOR,URINE YELLOW (YELLOW); LEUKOCYTE ESTERASE ,URINE NEGATIVE (NEGATIVE); NITRITE,URINE NEGATIVE (NEGATIVE); PROTEIN,URINE DIPSTICK 3+ (NEGATIVE)
[2018-04-15 11:52] LABS: BILIRUBIN,URINE NEGATIVE (NEGATIVE); KETONES,URINE NEGATIVE (NEGATIVE); URINE UROBILINOGEN 0.2 mg/dL (0.2 - 1)
[2018-04-15 12:17] LABS: WBC,URINE (MAN) 0-5 /HPF (0-5)
[2018-04-15 12:18] LABS: AMORPHOUS SEDIMENT,URINE RARE (FEW); BACTERIA,URINE RARE /HPF; EPITHELIAL CELLS,URINE FEW /LPF
[2018-04-15] MEDS ORDERED: LACTULOSE SYRUP 20 GM/30 ML UDC PO NR (12:30)
[2018-04-15] MEDS: FAMOTIDINE 20 MG TAB PO SCH (12:37)
[2018-04-15] MEDS: CEFEPIME 1GM/NS 0.9% 50 ML 50 ML IV SCH (12:45)
[2018-04-15] MEDS: INSULIN GLARGINE 100 UNITS/ML VIAL SQ SCH ×2 (12:45→21:13)
--- NOTE | 2018-04-15 19:13 | NUR ---
Reported critical glucose to Dr. Vernon, made him aware patient given 12 units of Humalog. No new orders received
--- NOTE | 2018-04-15 19:26 | Progress Note ---
DATE: Pulmonary Critical Care Progress Note SUBJECTIVE: The patient reports some improvement with Solu-Medrol. He was down to 3 L, but then walked to take a shower and had to increase the oxygen a little bit. He still has some cough. OBJECTIVE: VITAL SIGNS: The patient is afebrile. The blood pressure is 141/77 and the saturation is 99% on 4 L. HEENT: Shows no facial swelling or erythema. The nasal mucosa is normal. The oropharynx is normal. LYMPHATIC: Shows no submandibular, cervical, or supraclavicular adenopathy. NECK: Shows no JVD or thyromegaly. There is no nuchal rigidity. CARDIAC: Reveals a regular rate and rhythm with a normal S1 and S2. There are no murmurs or rubs. LUNGS: Auscultation of the lungs reveals some crackles in both lung islas. ABDOMEN: Soft and nontender. There is no rebound or guarding. EXTREMITIES: Shows no leg edema or calf tenderness. There is no cyanosis or clubbing. LABORATORY DATA: White blood cell count is 18.8 and the hemoglobin is 8.3. The platelet count is 488. The BUN to creatinine ratio is 77 to 3.8, and the other electrolytes are within normal limits. The blood sugar has been 300 to 400. ASSESSMENT: 1. Pulmonary fibrosis with bronchiectasis of unclear etiology. 2. Chronic renal failure, stage 4-5. 3. Hypoalbuminemia and probable nephrotic syndrome. 4. Diabetes, out of control. 5. Anemia, unspecified. 6. Hypertension. PLAN: 1. Continue Solu-Medrol. 2. Await serology testing. 3. Await bronchoscopy results. 4. Continue to adjust insulin and control blood sugars. 5. Consultation with CT Surgery for possible thoracoscopic biopsy. 6. Case discussed with the patient's family and Dr. Vernon. Sunday Guzman MD [facility] /[id number]
--- NOTE | 2018-04-15 21:20 | NUR ---
called dr Vernon and he called back, regarding patient's insulin result, the MD ordered to give 5 units regular insulin IV in addition to the schedule insulins. and re check insulin level again in 2 hrs.
[2018-04-15] MEDS ORDERED: INSULIN REGULAR, HUMAN 100 UNIT/1 ML 3ML VIAL IV NR (21:30)
[2018-04-16] VITALS (10 sets, daily range): BP systolic 128–153; BP diastolic 62–83
[2018-04-16] MEDS: CEFEPIME 1GM/NS 0.9% 50 ML 50 ML IV SCH ×3 (00:27→23:35)
[2018-04-16] MEDS: IPRATROPIUM BROMIDE 0.02% 2.5 ML NEB NEB SCH ×4 (01:00→19:40)
[2018-04-16 05:11] LABS: BASOPHILS % 0.1 % (0.0-1.0); HEMATOCRIT 27.4 % (38.2-49.6); HEMOGLOBIN 8.5 g/dL (14.0-18.0); LYMPHOCYTES # (AUTO) 0.8 (1.0-3.2); LYMPHOCYTES % 4.8 % (18.0-39.1); MEAN CORPUSCULAR HEMOGLOBIN 27.7 pg (28-32); MEAN CORPUSCULAR VOLUME 89.3 fL (81-99); MONOCYTES # (AUTO) 0.2 (0.2-0.8); MONOCYTES % 1.3 % (4.4-11.3); NEUTROPHILS # (AUTO) 15.9 (2.1-6.9); NEUTROPHILS % 93.1 % (38.7-80.0); PLATELET COUNT 463 x10e3/uL (140-360); RED BLOOD COUNT 3.07 x10e6/uL (4.3-5.7); RED CELL DISTRIBUTION WIDTH 14.6 % (11.7-14.4)
[2018-04-16 07:56] LABS: ANION GAP 20.3 mmol/L (8-16); CREATININE, SERUM 4.04 mg/dL (0.72-1.25); POTASSIUM 4.3 mmol/L (3.5-5.1)
[2018-04-16] MEDS: SODIUM CHLORIDE 1 GM TAB PO SCH ×3 (08:29→21:30)
[2018-04-16] MEDS: AZITHROMYCIN 250 MG TAB PO SCH (08:29)
[2018-04-16] MEDS: METHYLPREDNISOLONE SOD SUCC 40 MG/ML VIAL 1ML IV SCH ×2 (08:29→21:30)
[2018-04-16] MEDS: SODIUM BICARBONATE 650 MG TAB PO SCH ×3 (08:29→21:30)
[2018-04-16] MEDS: FUROSEMIDE 40 MG TAB PO SCH (08:29)
[2018-04-16] MEDS: INSULIN GLARGINE 100 UNITS/ML VIAL SQ SCH ×2 (08:30→21:30)
[2018-04-16] MEDS: INSULIN LISPRO 100 UNIT/1 ML 3ML VIAL SQ SCH ×4 (08:30→21:30)
--- NOTE | 2018-04-16 10:25 | NUR ---
HOME 02 EVARASELI DONE PT'S DESATS TO 70'S ON EXERTION SPOKE WITH DR TARIQ WHO STATES PT WILL NOT BE GOING HOME THIS WEEKEND WILL RE-JAMAR SATS ON THURSDAY
--- NOTE | 2018-04-16 11:30 | NUR ---
patients blood sugar 499, call placed to Dr. Vernon, orders received to administer insulin per sliding scale and give additional dose of lantus 15 units subq now, will continue to monitor
[2018-04-16] MEDS: FAMOTIDINE 20 MG TAB PO SCH (12:20)
--- NOTE | 2018-04-16 14:32 | NUR ---
EDUCATED ABOUT IMM, SIGNED, FILED IN CHART, WITH COPY LEFT WITH FAMILY AT BEDSIDE.
--- NOTE | 2018-04-16 15:09 | Diagnostic Imaging Report ---
EXAM: Renal Ultrasound INDICATION: CHU. COMPARISON: None TECHNIQUE: Transverse and longitudinal images of the kidneys and bladder were obtained. FINDINGS: Right Kidney: Length: Measures 10.8 x 6.3 x 4.7 cm Appearance: Increased echogenicity. Collecting system: No hydronephrosis Stones: None Cyst/Mass: None Left Kidney: Length: Measures 11.4 x 6.1 x 3.8 cm Appearance: Increased echogenicity. Collecting system: No hydronephrosis Stones: None Cyst/Mass: None Bladder: Unremarkable in appearance. Left ureteral jet is visualized. Right ureteral jet is not visualized. IMPRESSION: Echogenic appearance of bilateral kidneys, which can be seen in medical renal disease. No evidence of hydronephrosis. Signed by: Dr. Josh Nichole MD on 04/16/2018 3:06 PM
--- NOTE | 2018-04-16 15:30 | NUR ---
blood sugar 502, lab called for stat glucose, call placed to
[2018-04-16] MEDS ORDERED: INSULIN REGULAR, HUMAN 100 UNIT/1 ML 3ML VIAL IV ONE ×2 (16:15→21:00)
--- NOTE | 2018-04-16 18:05 | NUR ---
Follow-up Note RD Recommendation for Physician: Continue ADA diet as ordered Plan of Care: RD following, monitoring for adequacy and tolerance Nutrition reason for involvement: Follow up Primary Diagnose(s): 1. Pulmonary fibrosis with bronchiectasis of unclear etiology. 2. Chronic renal failure, stage 4-5. 3. Hypoalbuminemia and probable nephrotic syndrome. PMHx: Gout, diabetes, hyperlipidemia, hypertension, retinopathy, and chronic eye dryness. Ht: 68 in Wt: 171lbs; 193.05lb BMI:26 kg/m2 IBW:154lbs RD Assessment: (04/16/2018) Visited pt in the room. Pt reported good appetite with ~75% recorded meal intake. Pt complained of being constipated x 1 week; Notified RN Karlie. Prune juice was given for dinner today. Pt denied any chewing difficulty. LOG HAULER following for therapy. BG 380-500. Currently on insulin and solu-medrol. Will continue to monitor and follow. (04/11/2018) Initial encounter with patient. Pt has a Hx of gout and states that he avoids beef and fish. He also watches his CHO intake due to hyperglycemia. Pt denies any difficulty chewing or swallowing or N,V, D Current Diet: 1800 ADA diet Malnutrition Evaluation (04/11/2018) The patient does not meet criteria for a specified degree of malnutrition at this time. Will re-evaluate at follow-up as appropriate. Diet Education Needs Assessment: Diet education not indicated. Diet Adequacy: Meeting calorie needs, Meeting protein needs, Meeting fluid needs Tolerance: Tolerating PO Nutrition Care Level: low Sonia Son, MS, RD, LD
--- NOTE | 2018-04-16 20:01 | Progress Note ---
DATE: Pulmonary Critical Care Progress Note SUBJECTIVE: The patient still has dyspnea with exertion. He denies any fevers. He has some cough. He also complains of dry eyes and occular problems. OBJECTIVE: VITAL SIGNS: The patient is afebrile. The blood pressure is 128/62 and respiratory rate is 18. The saturation is 98%. HEENT: No facial swelling or erythema. The nasal mucosa is normal. The oropharynx is normal. LYMPHATIC: No submandibular, cervical, or supraclavicular adenopathy. CARDIAC: Regular rate and rhythm with a normal S1 and S2. LUNGS: Auscultation of lungs reveals crackles in both lung islas. ABDOMEN: Soft and nontender. IMPRESSION: 1. Pulmonary fibrosis. 2. Bronchiectasis. 3. Chronic renal failure, stage 4 to 5. 4. Probable nephrotic syndrome. 5. Hypoalbuminemia. PLAN: 1. The patient to be evaluated for thoracoscopic biopsy. 2. Continue Solu-Medrol. 3. Continue current antibiotics. 4. Continue current treatment of renal disease. 5. Monitor blood sugars. Sunday Guzman MD [facility] /[id number]
[2018-04-16] MEDS ORDERED: LACTULOSE SYRUP 20 GM/30 ML UDC PO ONE (21:00)
[2018-04-16] MEDS ORDERED: INSULIN GLARGINE 100 UNITS/ML VIAL SQ SCH (21:00)
--- NOTE | 2018-04-16 21:00 | NUR ---
Notified Dr. Vernon of critical blood glucose 542. Orders received. Dr. Vernon requested to recheck blood glucose in 2 hours and call back if > 400. Orders also received for constipation.
[2018-04-17] MEDS: IPRATROPIUM BROMIDE 0.02% 2.5 ML NEB NEB SCH ×4 (02:50→19:20)
[2018-04-17 04:00] VITALS: BP 135/86
[2018-04-17 05:54] LABS: BASOPHILS % 0.1 % (0.0-1.0); HEMATOCRIT 26.8 % (38.2-49.6); HEMOGLOBIN 8.4 g/dL (14.0-18.0); LYMPHOCYTES # (AUTO) 0.9 (1.0-3.2); LYMPHOCYTES % 5.3 % (18.0-39.1); MEAN CORPUSCULAR HEMOGLOBIN 28.2 pg (28-32); MEAN CORPUSCULAR HGB CONC 31.3 g/dL (31-35); MEAN CORPUSCULAR VOLUME 89.9 fL (81-99); MONOCYTES # (AUTO) 0.4 (0.2-0.8); MONOCYTES % 2.5 % (4.4-11.3); NEUTROPHILS # (AUTO) 15.8 (2.1-6.9); NEUTROPHILS % 91.5 % (38.7-80.0); PLATELET COUNT 438 x10e3/uL (140-360); RED BLOOD COUNT 2.98 x10e6/uL (4.3-5.7); RED CELL DISTRIBUTION WIDTH 14.7 % (11.7-14.4)
[2018-04-17 06:14] LABS: ALBUMIN 1.6 g/dL (3.5-5.0); ALBUMIN/GLOBULIN RATIO 0.3 (0.8-2.0); ANION GAP 15.4 mmol/L (8-16); CALCIUM 8.7 mg/dL (8.4-10.2); CREATININE, SERUM 3.77 mg/dL (0.72-1.25); POTASSIUM 4.4 mmol/L (3.5-5.1)
[2018-04-17] MEDS: INSULIN LISPRO 100 UNIT/1 ML 3ML VIAL SQ SCH ×4 (07:35→21:01)
[2018-04-17 07:51] VITALS: BP 148/77
[2018-04-17] MEDS: INSULIN GLARGINE 100 UNITS/ML VIAL SQ SCH ×2 (09:14→20:59)
[2018-04-17] MEDS: AZITHROMYCIN 250 MG TAB PO SCH (09:17)
[2018-04-17] MEDS: SODIUM CHLORIDE 1 GM TAB PO SCH (09:17)
[2018-04-17] MEDS: METHYLPREDNISOLONE SOD SUCC 40 MG/ML VIAL 1ML IV SCH ×2 (09:17→21:01)
[2018-04-17] MEDS: FUROSEMIDE 40 MG TAB PO SCH (09:17)
[2018-04-17] MEDS: SODIUM BICARBONATE 650 MG TAB PO SCH ×3 (09:17→21:01)
[2018-04-17] MEDS: FAMOTIDINE 20 MG TAB PO SCH (11:48)
[2018-04-17 12:15] VITALS: BP 141/76
[2018-04-17] MEDS: CEFEPIME 1GM/NS 0.9% 50 ML 50 ML IV SCH (12:22)
[2018-04-17 16:17] VITALS: BP 157/90
[2018-04-17 18:12] LABS: CREATININE,URINE RANDOM 38.39 mg/dL (63-166)
--- NOTE | 2018-04-17 18:12 | Diagnostic Imaging Report ---
EXAMINATION: CHEST 2 VIEWS INDICATION: Hypoxia ^Pulm Fibrosis ^[id number] ^1735 COMPARISON: Multiple chest x-rays extending back to 04/09/2018, the most recent is 04/12/2018 FINDINGS: PA and lateral views TUBES and LINES: None. LUNGS: Lung volumes are low. Extensive interstitial thickening is redemonstrated. Alveolar airspace opacities have improved. PLEURA: No pleural effusion or pneumothorax. HEART AND MEDIASTINUM: The cardiomediastinal silhouette is unremarkable.. BONES AND SOFT TISSUES: Degenerative changes of the spine. No focal osseous lesions. Soft tissues are unremarkable. UPPER ABDOMEN: There is barium throughout the visualized colon from previous radiographic procedure. No dilatation. No free air. IMPRESSION: Low lung volumes with findings of pulmonary fibrosis. Alveolar airspace opacities have improved. No new cardiopulmonary findings. Signed by: Dr. Jojo Hensley MD on 04/17/2018 6:09 PM
[2018-04-17 19:43] VITALS: BP 131/68
[2018-04-17 19:46] VITALS: BP 131/68
--- NOTE | 2018-04-17 19:46 | NUR ---
Received patient from day nurse, patient is alert and oriented x 3, patient is connected to oxygen, patient family at bed side, patient is currently fairly stable, will continue to care.
[2018-04-17 22:52] LABS: TOTAL PROTEIN 24HR, URINE 9104.1 mg/24hr (50-100); TOTAL PROTEIN, URINE 291.8 mg/dL (1-14)
--- NOTE | 2018-04-17 22:57 | Progress Note ---
DATE: Pulmonary Progress Note SUBJECTIVE: The patient has some improvement. He is decreased to 3 L. He still complains of eye problems. PHYSICAL EXAMINATION: VITAL SIGNS: The patient is afebrile. The blood pressure is 141/76. Saturation is 96% on 3 L. HEENT: Shows no facial swelling or erythema. Nasal mucosa is normal. LYMPHATIC: Shows no submandibular, cervical, or supraclavicular adenopathy. CARDIAC: Reveals regular rate and rhythm with normal S1 and S2. LUNGS: Auscultation of lungs reveals crackles at the bases. There is no wheezing. ABDOMEN: Soft and nontender. There is no rebound or guarding. EXTREMITIES: Show no leg edema or calf tenderness. IMPRESSION: 1. Pulmonary fibrosis. 2. Bronchiectasis. 3. Chronic renal failure, stage 4 to 5. 4. Probable nephrotic syndrome. 5. Diabetic retinopathy. PLAN: 1. Repeat PA and lateral chest x-ray. 2. Continue current antibiotics. 3. Continue Solu-Medrol. 4. Await culture results from bronchoscopy. Sunday Guzman MD [facility] /[id number]
[2018-04-18 00:48] VITALS: BP 138/76
[2018-04-18] MEDS: IPRATROPIUM BROMIDE 0.02% 2.5 ML NEB NEB SCH ×4 (01:02→20:15)
[2018-04-18] MEDS: CEFEPIME 1GM/NS 0.9% 50 ML 50 ML IV SCH ×2 (03:21→11:54)
--- NOTE | 2018-04-18 05:08 | NUR ---
04/17/18 @ 1900: Received patient from day nurse, patient is alert and oriented x 3. imu sr, patient is on 02, patient saturating above 98, patient made aware of the importance calling for help, patient verbalized understanding. 2000: patient rounded and stable. 2200: patient rounded and stable 04/18/18: 0000: patient rounded and stable 0200: patient rounded and stable 0400: patient rounded and stable.
[2018-04-18] MEDS: INSULIN LISPRO 100 UNIT/1 ML 3ML VIAL SQ SCH ×4 (07:07→21:20)
[2018-04-18 07:10] VITALS: BP 151/88
[2018-04-18 07:11] VITALS: BP 151/88
--- NOTE | 2018-04-18 07:12 | NUR ---
pt resting in bed, family at bedside. no s/s distress, no c/o pain. will continue to monitor.
--- NOTE | 2018-04-18 07:28 | NUR ---
Patient endorsed to next shift for continuity of care.
[2018-04-18] MEDS: SODIUM BICARBONATE 650 MG TAB PO SCH ×3 (08:49→21:30)
[2018-04-18] MEDS: AZITHROMYCIN 250 MG TAB PO SCH (08:49)
[2018-04-18] MEDS: METHYLPREDNISOLONE SOD SUCC 40 MG/ML VIAL 1ML IV SCH ×2 (08:49→21:10)
[2018-04-18] MEDS: FUROSEMIDE 40 MG TAB PO SCH (08:49)
[2018-04-18] MEDS: INSULIN GLARGINE 100 UNITS/ML VIAL SQ SCH ×2 (08:55→21:32)
[2018-04-18 11:40] VITALS: BP 131/76
[2018-04-18] MEDS: FAMOTIDINE 20 MG TAB PO SCH (11:41)
--- NOTE | 2018-04-18 15:42 | NUR ---
dr jeter on unit, aware dr lopez has not seen pt yet, stated md is aware of consult and had emergency but should be seeing pt today. pt to be trans to [facility] without tele per dr porras. pt stable.
[2018-04-18] MEDS ORDERED: LACTULOSE SYRUP 20 GM/30 ML UDC PO NR (16:30)
--- NOTE | 2018-04-18 16:35 | NUR ---
Visit made by the Spiritual Care Department Pastoral Visitor, Boby Rod. PV provided pastoral presence, hospitality, and supportive listening. Pastoral Visitor informed pt/family of the scope of [employer] and availability. LUISITO WATSON Perfect Binder Operator Spiritual Care Department O: [phone] Pager: [phone] ([phone] number calling from)
--- NOTE | 2018-04-18 17:15 | NUR ---
RCD PT FROM IMCU BY BED PT IS ALERT AND ORIENTED VITALS CHECKED PT RESTING ON BED FAMILY AT BED SIDE BED LOW AND LOCKED CALL LIGHT IN REACH
--- NOTE | 2018-04-18 18:40 | NUR ---
PT RESTING ON BED BED SIDE REPORT GIVEN TO ONCOMING NURSE
--- NOTE | 2018-04-18 19:20 | NUR ---
REPORT TAKEN FROM AM RN.WALKING ROUNDS DONE.PT IS LYEING IN THE BED.FAMILY MEMBER AT BED SIDE.
--- NOTE | 2018-04-18 19:30 | NUR ---
IS IN THE UNIT TO SEE THE PT.
--- NOTE | 2018-04-18 19:45 | Progress Note ---
DATE: Pulmonary Critical Care Progress Note SUBJECTIVE: The patient reports some improvement. He has less dyspnea, although he still has some dyspnea with exertion. He has less cough. PHYSICAL EXAMINATION: VITAL SIGNS: The patient is afebrile. The saturation is 100% on 3 L. HEENT: No facial swelling or erythema. Nasal mucosa is normal. Oropharynx is normal. LYMPHATIC: No submandibular, cervical, or supraclavicular adenopathy. CARDIAC: Regular a regular rate and rhythm with a normal S1 and S2. There are no murmurs or rubs. LUNGS: Auscultation of lungs reveals a few crackles in both lung islas. ABDOMEN: Soft, nontender. There is no rebound or guarding. EXTREMITIES: Show no leg edema or calf tenderness. PATHOLOGY REPORT: Right lower lobe biopsy shows bronchial epithelium with no specific diagnosis. IMPRESSION: 1. Pulmonary fibrosis. 2. Bronchiectasis. 3. Chronic renal failure. 4. Probable nephrotic syndrome. 5. Diabetic retinopathy. PLAN: 1. Continue Solu-Medrol. 2. Await microbiology results from bronchoscopy. 3. The patient to be seen by Ophthalmology. 4. CT Surgery to evaluate the patient. We are considering thoracoscopic biopsy depending on the patient's progress. Sunday Guzman MD [facility] /[id number]
[2018-04-18 20:00] VITALS: BP 156/76
[2018-04-18 21:00] VITALS: BP 156/76
--- NOTE | 2018-04-18 21:00 | NUR ---
ASSESSMENT DONE.NO RESP.DISTRESS.NO PAIN VOICED.VOIDED.NO BOWEL MOVEMENT SINCE 2 WEEKS.FAMILY MEMBER AT BED SIDE.BED LOCKED AND IN LOWEST POSITION.PHONE AND CALL LIGHT WITHIN REACH.INSTRUCTED TO CALL FOR ASSISTANCE NEEDED.LEGALLY BLIND BOTH EYES.REFUSED TO PUT BED ALARM ON.
[2018-04-18] MEDS: ENALAPRIL MALEATE 5 MG TAB PO SCH (21:30)
[2018-04-19] VITALS (7 sets, daily range): BP systolic 111–139; BP diastolic 60–75
[2018-04-19] MEDS: IPRATROPIUM BROMIDE 0.02% 2.5 ML NEB NEB SCH ×5 (00:37→19:10)
--- NOTE | 2018-04-19 03:00 | NUR ---
Resting now.pt turns his position himself.
[2018-04-19 05:03] LABS: BASOPHILS % 0.1 % (0.0-1.0); HEMOGLOBIN 9.6 g/dL (14.0-18.0); LYMPHOCYTES # (AUTO) 1.5 (1.0-3.2); MEAN CORPUSCULAR HEMOGLOBIN 27.9 pg (28-32); MEAN CORPUSCULAR VOLUME 90.1 fL (81-99); MONOCYTES # (AUTO) 0.5 (0.2-0.8); MONOCYTES % 2.4 % (4.4-11.3); NEUTROPHILS # (AUTO) 16.6 (2.1-6.9); NEUTROPHILS % 88.6 % (38.7-80.0); PLATELET COUNT 440 x10e3/uL (140-360); RED BLOOD COUNT 3.44 x10e6/uL (4.3-5.7)
[2018-04-19 05:27] LABS: ALBUMIN 1.9 g/dL (3.5-5.0); ALBUMIN/GLOBULIN RATIO 0.4 (0.8-2.0); CALCIUM 8.9 mg/dL (8.4-10.2); CREATININE, SERUM 3.45 mg/dL (0.72-1.25)
--- NOTE | 2018-04-19 06:50 | NUR ---
REPORT GIVEN TO THE ONCOMING RN.WALKING ROUNDS DONE.STALE CONDITION.
--- NOTE | 2018-04-19 07:08 | NUR ---
pt alert resp even and unlabored at this time no distress noted at this time, no has no c/o pain when asked, pt has family member at bedside , pt able to make needs known, call light in reach.
[2018-04-19] MEDS: INSULIN LISPRO 100 UNIT/1 ML 3ML VIAL SQ SCH ×4 (07:30→21:00)
--- NOTE | 2018-04-19 08:30 | NUR ---
IMM explained to pt and his at bedside. They verbalized understanding. Signed copy placed in chart. Copy to pt.
[2018-04-19] MEDS: SODIUM BICARBONATE 650 MG TAB PO SCH ×3 (08:45→21:20)
[2018-04-19] MEDS: METHYLPREDNISOLONE SOD SUCC 40 MG/ML VIAL 1ML IV SCH ×2 (08:45→21:20)
[2018-04-19] MEDS: INSULIN GLARGINE 100 UNITS/ML VIAL SQ SCH ×2 (09:59→21:00)
--- NOTE | 2018-04-19 10:50 | NUR ---
call to Dr. Guzman to cancel consult to Dr. Martínez , manufacturer agent can be seen as out pt. Dr. Guzman ok'ed for it to be out pt.
[2018-04-19] MEDS ORDERED: BISACODYL 5 MG TAB EC PO ONE (12:00)
[2018-04-19] MEDS: FAMOTIDINE 20 MG TAB PO SCH (12:16)
[2018-04-19 15:36] LABS: CALCIUM 8.3 mg/dL (8.4-10.2); CREATININE, SERUM 3.64 mg/dL (0.72-1.25)
[2018-04-19] MEDS ORDERED: ACETAMINOPHEN 325 MG TAB PO PRN (18:45)
[2018-04-19] MEDS: HYDROCODONE/APAP 5MG-325MG TAB PO PRN (19:02)
--- NOTE | 2018-04-19 19:25 | NUR ---
Patient received sitting up in bed. AAO x 3. Family member at bedside. Patient had no complaints of pain. No signs of respiratory distress. Bed locked and in lowest position. Bed rails up x 2. Patient instructed to call for assistance when needed. Call light within reach.
--- NOTE | 2018-04-19 20:07 | NUR ---
REPORT GIVEN TO ONCOMING NURSE FOR CONTINUED CARE.
[2018-04-19] MEDS: ENALAPRIL MALEATE 5 MG TAB PO SCH (21:00)
[2018-04-20] VITALS (7 sets, daily range): BP systolic 123–150; BP diastolic 61–75
[2018-04-20] MEDS ORDERED: BISACODYL 5 MG TAB EC PO PRN
--- NOTE | 2018-04-20 05:17 | Diagnostic Imaging Report ---
EXAMINATION: CHEST SINGLE (PORTABLE) INDICATION: Hypoxemia. ILD. COMPARISON: 04/17/2018 FINDINGS: TUBES and LINES: None. LUNGS: Mild hyperinflation bilaterally. Redemonstration of extensive interstitial thickening associated with cystic changes again observed, without interval change. PLEURA: No pleural effusion or pneumothorax. HEART AND MEDIASTINUM: The cardiomediastinal silhouette is unremarkable.. BONES AND SOFT TISSUES: Degenerative changes of the spine. No focal osseous lesions. Soft tissues are unremarkable. UPPER ABDOMEN: Retained barium within the colon again noted. No dilatation. No free air. IMPRESSION: No significant interval change in interstitial lung disease pattern. Signed by: Dr. Mimi Crawley M.D. on 04/20/2018 5:14 AM
[2018-04-20] MEDS: HYDROCODONE/APAP 5MG-325MG TAB PO PRN ×2 (05:41→16:57)
[2018-04-20] MEDS: IPRATROPIUM BROMIDE 0.02% 2.5 ML NEB NEB SCH ×4 (07:00→19:25)
--- NOTE | 2018-04-20 07:02 | Progress Note ---
DATE: 04/19/2018 Pulmonary Medicine Progress Note SUBJECTIVE: Mr. Joseph was seen and examined at bedside. He continues to have slow progress. The patient is currently on oxygen 3 L/minute. 99% oxygen saturation. X-rays reviewed showing improvement recently. As of 2 days ago, room air oxygen fell to 78% on walking. He is eating well. He with physical therapy today. Still no bowel movements for 2 weeks. REVIEW OF SYSTEMS: No bleeding, no rash. OBJECTIVE: VITAL SIGNS: Afebrile. Vital signs noted per the chart record. GENERAL: In no acute distress, alert and calm, although he does have a little bit of chronic appearance already. CARDIOVASCULAR: S1, S2. No murmurs, rubs, or gallops. HEENT: Normocephalic, atraumatic. NECK: Supple. Throat midline. LUNGS: Bilateral air entry, limited air entry, rare rhonchi. ABDOMEN: Soft, nontender. EXTREMITIES: No clubbing, no cyanosis. There is no edema. INTEGUMENT: No rash or purpura. LABORATORY DATA: 5.0 potassium, 78 BUN, 3.6 creatinine. 19 white count, 31 hematocrit, 440 platelets. Latest on bronchoscopic washings, they remained as of yet nondiagnostic. IMPRESSION AND PLAN: 1. Diffuse interstitial lung disease, on investigation. 2. 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 3. Mild rheumatoid factor positivity 16.7, with ERIC negative. 4. History of allergies. 5. Reported retinopathy, chronic eye dryness. 6. Hypertension, dyslipidemia, diabetes. 7. Chronic smoker in the past. We will await the microbiologic results including for rapid growing mycobacteria as well as other possibilities. His HIV testing was negative. He was given steroids, so we should continue this empirically and he will likely be discharged on steroids with outpatient followup. If there is any significant infection, the bronchoscopy will likely show it. Treat him with Colace and induce bowel movements. The patient had an echocardiogram with 55% to 60% LVEF without any significant TR jet to suggest pulmonary hypertension. We will check a followup sedimentation rate to see if it is decreasing. Continue weaning oxygen at this time. We will follow up expectant from surgeon regarding biopsy, but if the patient continues to improve, biopsy may be deferred. MD RACHAEL Luke/VASQUEZ /[id number]
--- NOTE | 2018-04-20 07:10 | NUR ---
PT ALERT RESP EVEN AND UNLABORED AT THIS TIME NO DISTRESS NOTED, PT ABLE TO MAKE NEEDS KNOWN, FAMILY MEMBERS AT BEDSIDE, CALL LIGHT IN REACH, NO HAS NO C/O PAIN AT THIS TIME.
--- NOTE | 2018-04-20 07:23 | NUR ---
Walking rounds done. Shift report given to oncoming nurse.
[2018-04-20] MEDS: INSULIN LISPRO 100 UNIT/1 ML 3ML VIAL SQ SCH ×4 (07:30→21:00)
[2018-04-20] MEDS ORDERED: SOD PHOSPHATE/SOD BIPHOSPHATE ENEMA 132 ML BTL PR ONE (08:15)
[2018-04-20] MEDS: DOCUSATE SODIUM 100 MG CAP PO SCH ×2 (08:46→16:56)
[2018-04-20] MEDS: SODIUM BICARBONATE 650 MG TAB PO SCH ×3 (08:46→20:58)
[2018-04-20] MEDS: METHYLPREDNISOLONE SOD SUCC 40 MG/ML VIAL 1ML IV SCH ×2 (08:46→20:58)
[2018-04-20] MEDS: INSULIN GLARGINE 100 UNITS/ML VIAL SQ SCH (09:42)
[2018-04-20] MEDS: FAMOTIDINE 20 MG TAB PO SCH (13:07)
--- NOTE | 2018-04-20 18:46 | Progress Note ---
DATE: Pulmonary Critical Care Progress Note SUBJECTIVE: The patient reports improvement. He has less dyspnea and less cough. He is not as congested. He was ambulating a little bit. PHYSICAL EXAMINATION: VITAL SIGNS: The patient is afebrile. The blood pressure is 139/61 and the saturation is 97% on 3 L. HEENT: Shows no facial swelling or erythema. CARDIAC: Reveals a regular rate and rhythm with a normal S1 and S2. There are no murmurs or rubs. LUNGS: Auscultation of lungs reveals crackles in both lung islas. There is no wheezing. ABDOMEN: Soft and nontender. There is no rebound or guarding. EXTREMITIES: Show no leg edema or calf tenderness. IMPRESSION: 1. Pulmonary fibrosis. 2. Bronchiectasis. 3. Chronic renal failure. 4. Probable nephrotic syndrome. 5. Diabetic retinopathy. PLAN: 1. Wean steroids as tolerated. 2. Defer thoracoscopic biopsy unless symptoms recur or symptoms progress. 3. Continue to monitor and control blood sugar. 4. The patient should have followup with Ophthalmology. 5. Continue to monitor renal function. Sunday Guzman MD [facility]/MODL /[id number]
--- NOTE | 2018-04-20 19:17 | NUR ---
walking rounds complete, report given to oncoming nurse, for continued care.
--- NOTE | 2018-04-20 19:25 | NUR ---
Patient received sitting up in bed. AAO x 3. Patient in no apparent distress. Fall precautions in place. Call light within reach.
[2018-04-20] MEDS: ENALAPRIL MALEATE 5 MG TAB PO SCH (20:58)
[2018-04-21] VITALS (8 sets, daily range): BP systolic 108–153; BP diastolic 59–74
[2018-04-21] MEDS: HYDROCODONE/APAP 5MG-325MG TAB PO PRN (06:54)
[2018-04-21] MEDS: IPRATROPIUM BROMIDE 0.02% 2.5 ML NEB NEB SCH ×4 (07:00→19:25)
[2018-04-21] MEDS: INSULIN LISPRO 100 UNIT/1 ML 3ML VIAL SQ SCH ×4 (07:30→21:00)
[2018-04-21] MEDS: INSULIN GLARGINE 100 UNITS/ML VIAL SQ SCH (07:44)
--- NOTE | 2018-04-21 09:20 | NUR ---
IMM letter delivered and explained. Reminded pt and at bedside of Medicare Rights. They verbalized understanding. Signed copy placed in chart. Copy to pt's . CM spoke to pt's regarding dc plan. She stated that they want to have therapy come to the house. Did not want her to go to a facility on discharge. Pt's stated that per her conversation with Dr. Vernon, anticipate dc today or tomorrow.
[2018-04-21] MEDS: SODIUM BICARBONATE 650 MG TAB PO SCH ×3 (09:27→20:35)
[2018-04-21] MEDS: METHYLPREDNISOLONE SOD SUCC 40 MG/ML VIAL 1ML IV SCH ×2 (09:27→20:35)
[2018-04-21] MEDS: DOCUSATE SODIUM 100 MG CAP PO SCH ×2 (09:27→16:55)
[2018-04-21] MEDS: FAMOTIDINE 20 MG TAB PO SCH (12:39)
--- NOTE | 2018-04-21 14:13 | NUR ---
CM SPOKE TO PATIENT AT BEDSIDE REGARDING HOME HEALTH AND HOME O2. CM [facility] CHOICES FOR HOME HEALTH AND HOME O2 SERVICES. PATIENT CHOSE TO GO THROUGH INSURANCE. INSURANCE HOME HEALTH SERVICES GIVEN TO PATIENT. PATIENT CHOSE [facility] FOR HOME [facility]2 AND [facility] FOR SERVICES. CHOICE LETTER SIGNED AND PLACED IN CHART. CLINICAL SENT TO BOTH COMPANIES. PATIENT KNOWS NOT TO DISCHARGE WITHOUT OXYGEN DELIVERED TO BEDSIDE. RN AWARE WELL. [facility]: PHONE: [phone] FAX: [phone] [facility]: FAX: [phone]
[2018-04-21] MEDS: ACETAMINOPHEN/CODEINE 300MG - 30MG TAB PO PRN ×2 (16:12→22:10)
--- NOTE | 2018-04-21 19:01 | NUR ---
Follow-up Note RD Recommendation for Physician: Continue renal/ ADA diet as ordered Plan of Care: RD following, monitoring for adequacy and tolerance, diet education Nutrition reason for involvement: RN consult no reason stated Primary Diagnose(s): 1. Pulmonary fibrosis with bronchiectasis of unclear etiology. 2. Chronic renal failure, stage 4-5. 3. Hypoalbuminemia and probable nephrotic syndrome. PMHx: Gout, diabetes, hyperlipidemia, hypertension, retinopathy, and chronic eye dryness. Ht: 68 in Wt: 171lbs; 193.05lb; 159.56lb BMI:26 kg/m2 IBW:154lbs RD Assessment: (04/21/2018) Spoke with ASHOK Ramsey; pts would like to learn more about the renal diabetic diet. Visited pt in the room. Pt reported good appetite with ~75% recorded meal intake. LBM 04/20. No GI complains noted. RD provided diet education as requested. Will continue to monitor and follow. (04/16/2018) Visited pt in the room. Pt reported good appetite with ~75% recorded meal intake. Pt complained of being constipated x 1 week; Notified ASHOK Ziegler. Prune juice was given for dinner today. Pt denied any chewing difficulty. EMBEDDED SOFTWARE DEVELOPMENT ENGINEER following for therapy. BG 380-500. Currently on insulin and solu-medrol. Will continue to monitor and follow. (04/11/2018) Initial encounter with patient. Pt has a Hx of gout and states that he avoids beef and fish. He also watches his CHO intake due to hyperglycemia. Pt denies any difficulty chewing or swallowing or N,V, D Current Diet: renal diabetic diet Malnutrition Evaluation (04/11/2018) The patient does not meet criteria for a specified degree of malnutrition at this time. Will re-evaluate at follow-up as appropriate. Diet Education Needs Assessment: Diet education indicated, pt and were agreeable with plan. Learner(s): pt and Time spent: 25minutes Barriers: No barriers identified. Cultural/Language Modifications: No cultural/language modifications noted. Pt and speak Ukrainian. Readiness: Pt eager to learn. Method: Handouts, explanation Topics: Renal diabetic diet Understanding/Compliance: Expect good understanding/compliance from pt. Will benefit from reinforcement. All questions have been answered. Diet Adequacy: Meeting calorie needs, Meeting protein needs, Meeting fluid needs Tolerance: Tolerating PO Nutrition Care Level: low Sonia Son, MS, RD, LD
--- NOTE | 2018-04-21 19:30 | NUR ---
Patient received lying in bed. AAO x 3. at bedside. No acute distress noted. Call light within reach.
--- NOTE | 2018-04-21 20:27 | Progress Note ---
DATE: 04/21/2018 Pulmonary Medicine Progress Note SUBJECTIVE: The patient had a bowel movement. He is eating reasonable amounts. His eyes are burning, feeling very bothersome. He walked today. REVIEW OF SYSTEMS: No headaches, no bleeding. OBJECTIVE: VITAL SIGNS: Afebrile, vital signs noted per the chart record. GENERAL: No acute distress, alert and calm. HEENT: Normocephalic, atraumatic. NECK: Supple. Throat midline. LUNGS: Bilateral air entry, crackles throughout. CARDIOVASCULAR: S1, S2. No murmurs, rubs, or gallops. ABDOMEN: Soft, nontender. EXTREMITIES: No clubbing, no cyanosis. There is trace edema. INTEGUMENT: No rash or purpura. LABS: Potassium 5.0, creatinine 3.6 previously. White count 19, hematocrit 31. IMPRESSION AND PLAN: 1. Diffuse interstitial lung disease. 2. Neutrophilic alveolitis, 60% polymorphic nuclear cells although limited cellularity. 3. Mild rheumatoid factor positivity. 4. Possible sarcoidosis. 5. History of allergies. 6. Reported retinopathy, chronic eye dryness. 7. Hypertension. 8. Dyslipidemia. 9. Diabetes. 10. Chronic former smoker. Await cultures. Assess for mycobacteria and fungal organisms. HIV test was negative. Continue steroids empirically and he should be discharged on these at 40 mg per day until he gets to expert paramedic rn. Gallium scan reasonable next step. No early surgical biopsy as the patient is improving, but he will be considered for surgical biopsy if he worsens. MD RACHAEL Luke/MODL /[id number]
[2018-04-22] VITALS (7 sets, daily range): BP systolic 134–161; BP diastolic 71–86
[2018-04-22 05:48] LABS: ANION GAP 13.6 mmol/L (8-16); CALCIUM 7.8 mg/dL (8.4-10.2); CREATININE, SERUM 2.84 mg/dL (0.72-1.25); POTASSIUM 4.6 mmol/L (3.5-5.1)
[2018-04-22] MEDS: ENALAPRIL MALEATE 5 MG TAB PO SCH (05:57)
--- NOTE | 2018-04-22 06:11 | Diagnostic Imaging Report ---
EXAMINATION: CHEST SINGLE (PORTABLE) INDICATION: Hypoxemia. ILD. CAD. COMPARISON: 04/20/2018 FINDINGS: TUBES and LINES: None. LUNGS: Mild hyperinflation bilaterally. Redemonstration of extensive interstitial thickening associated with cystic changes again observed, without interval change. PLEURA: No pleural effusion or pneumothorax. HEART AND MEDIASTINUM: The cardiomediastinal silhouette is unremarkable.. BONES AND SOFT TISSUES: Degenerative changes of the spine. No focal osseous lesions. Soft tissues are unremarkable. UPPER ABDOMEN: Retained barium within the colon again noted. No dilatation. No free air. IMPRESSION: Stable examination. No interval interval change in interstitial lung disease pattern. Signed by: Dr. Mimi Crawley M.D. on 04/22/2018 6:07 AM
[2018-04-22] MEDS: IPRATROPIUM BROMIDE 0.02% 2.5 ML NEB NEB SCH ×2 (07:00→10:52)
--- NOTE | 2018-04-22 07:00 | NUR ---
SHIFT REPORT FROM NIGHT NURSE AT BEDSIDE. PT DENIES NEEDS AT THIS TIME.
--- NOTE | 2018-04-22 07:05 | NUR ---
Shift report given to oncoming nurse.
[2018-04-22] MEDS: INSULIN LISPRO 100 UNIT/1 ML 3ML VIAL SQ SCH ×3 (07:30→17:05)
[2018-04-22] MEDS: METHYLPREDNISOLONE SOD SUCC 40 MG/ML VIAL 1ML IV SCH (09:14)
[2018-04-22] MEDS: DOCUSATE SODIUM 100 MG CAP PO SCH ×2 (09:14→17:05)
[2018-04-22] MEDS: SODIUM BICARBONATE 650 MG TAB PO SCH ×2 (09:14→14:39)
[2018-04-22] MEDS: INSULIN GLARGINE 100 UNITS/ML VIAL SQ SCH (09:16)
[2018-04-22] MEDS: FAMOTIDINE 20 MG TAB PO SCH (12:07)
--- NOTE | 2018-04-22 12:34 | NUR ---
CM SPOKE TO [facility] REGARDING HOME OXYGEN DELIVERY TO BEDSIDE. FORM RECEIVED FOR EQUIPMENT APPROVAL. FORM PLACED ON CHART FOR DR. TARIQ TO SIGN. BEDSIDE RN USMAN NOTIFIED TO REMIND MD TO SIGN ORDER IF HE SEES HIM. DR. TARIQ NOTIFIED TO SIGN ORDER WHEN HE COMES TO HOSPITAL TO MAKE ROUNDS.
--- NOTE | 2018-04-22 15:41 | NUR ---
OXYGEN DELIVERED TO BEDSIDE. ANNY WITH [employer] CONFIRMED FORMS WERE DELIVERED TO HER AND FILLED OUT CORRECTLY. PATIENT DISCHARGED BY ATTENDING MD, DR. TARIQ.
[2018-04-22] MEDS ORDERED: PREDNISONE20 MG PO (16:03)
[2018-04-22] MEDS ORDERED: TYLENOL WITH C1 EACH PO (16:04)
--- NOTE | 2018-04-22 16:34 | NUR ---
DR. CASAS AND DR. RAMOS CONTACTED AND CLEARED PT TO DISCHARGE HOME.
--- NOTE | 2018-04-22 17:15 | NUR ---
PT CLEARED BY DR. WOODWARD FOR DISCHARGE HOME.
--- NOTE | 2018-04-22 17:41 | Progress Note ---
DATE: 04/22/2018 Pulmonary Medicine Progress Note SUBJECTIVE: Mr. Joseph was seen and examined at bedside. He has continued improvement in his breathing. gallium scan where he got the tracer injection, 3 L/minute by nasal cannula. He is eating. REVIEW OF SYSTEMS: No headaches, no bleeding. OBJECTIVE: VITAL SIGNS: Afebrile. Vital signs noted per electronic record. GENERAL: No acute distress. Alert and calm. HEENT: Normocephalic, atraumatic. NECK: Supple. Throat midline. LUNGS: Bilateral air entry, few rales. CARDIOVASCULAR: S1, S2. No murmurs, rubs, or gallops. ABDOMEN: Soft, nontender. EXTREMITIES: No clubbing, no cyanosis. There is no edema. INTEGUMENT: No rash. No purpura. LABORATORY DATA: Potassium 4.6, BUN 70, and 2.8 creatinine. White count 19, hematocrit 31, and platelets 440. IMPRESSION AND PLAN: 1. Chronic diffuse interstitial lung disease. 2. Possible sarcoidosis. 3. . 4. Acute on chronic kidney failure. Continue to await results of gallium scan. Home oxygen was required. Home health still under authorization procedures, we will await that. Continue steroids at this time. We will await cultures from bronchoscopy to see if there is alternative diagnosis that comes out. MD RACHAEL Luke/MODL /[id number]
--- NOTE | 2018-04-23 13:09 | Discharge Summary ---
PRIMARY CARE DOCTOR: Jayashree Sanchez MD. FINAL DIAGNOSIS: Chronic respiratory failure due to pulmonary fibrosis. SECONDARY DIAGNOSES: 1. Diabetes. 2. Stage 4 chronic kidney disease with nephrotic range proteinuria. 3. Gout. 4. Dry eye. 5. Diabetic retinopathy. 6. Diabetic neuropathy. CONSULTANTS: 1. Dr. Mayes, injury/safety hazard assessment. 2. Dr. Marte, cardiothoracic surgeon. 3. Dr. Oneal, Nephrology. PROCEDURES/STUDIES PERFORMED: 1. CTA of the chest. 2. Bronchoscopy. 3. Renal ultrasound. 4. Echocardiogram was benign. HISTORY: Per H and P. HOSPITAL COURSE: The patient was admitted. The patient underwent a course of broad spectrum antibiotics, which did not really improve his symptoms. Specifically, severe hypoxia is always 70%. Initially, IV Lasix was utilized, however, the patient did not improve either. Finally, when we started Solu-Medrol 30 twice a day, that is when slowly his symptom improved. Bronchoscopy was done, which was fairly unremarkable. The patient was evaluated by cardiothoracic surgeon for possible surgical lung biopsy, however, the decision was made to differ the biopsy at this time since he is improving. At this time, his oxygen saturation only dropped down to 86% on room air. The patient will be going home on prednisone 40 mg daily. The patient will follow up with [facility] injury/safety hazard assessment for further care. His CAT scan did have a perilymphatic distribution, which raised the possibility of sarcoid. At this time, gallium scan has been performed, however, I do not have the results at this time. Once I do, I will forward to his primary care doctor. I will also update his primary care doctor about his hospitalization. The patient was seen and examined today. I have also updated his at the bedside. It took 32 minutes total to discharge this patient. CONDITION ON DISCHARGE: Improved. DISCHARGE MEDICATIONS: Please see medication reconciliation form. MD YE Lincoln/MODL /[id number] cc: [facility]
--- NOTE | 2018-04-24 22:57 | Diagnostic Imaging Report ---
Gallium Scan Reason for exam: 62 M with CKD and hypoxemia; concern for sarcoidosis Radiopharmaceutical: Ga-67 citrate 6.6 mCi Report: Total body images were obtained at 48 hours after administration of the radiopharmaceutical. Distribution of tracer activity appears physiologic throughout the body. Specifically, no accumulation of tracer is seen in the lacrimal glands, lung or in the thoracic leti stations. There are no focal areas of abnormal accumulation of tracer seen. Impression: Normal gallium scan No scan evidence of an active inflammatory process or of gallium-avid neoplastic disease. Specifically, no inflammatory process is seen in the lacrimal glands or in the lungs and no gallium-avid lymphadenopathy is present. Signed by: Dr. Ramya Del Cid M.D. on 04/24/2018 10:54 PM
== END 2018-04-22 17:49 | disposition home health service (06) | DRG 196 ==
LOC: ER 07:27 → ERHOLD 11:09 → MED/SURG3 17:17 → IMCU 04-10 23:46 → MED/SURG2 04-18 17:22
PROVIDERS: ADMIT Internal Medicine; ATTEND Internal Medicine
PROC: 30233N1 Transfusion of Nonautologous Red Blood Cells into Peripheral Vein, Percutaneous Approach (ICD-10-PCS; 2018-04-10)
PROC: 3E02340 Introduction of Influenza Vaccine into Muscle, Percutaneous Approach (ICD-10-PCS; 2018-04-10)
PROC: 3E0234Z Introduction of Serum, Toxoid and Vaccine into Muscle, Percutaneous Approach (ICD-10-PCS; 2018-04-10)
PROC: 0BD68ZX Extraction of Right Lower Lobe Bronchus, Via Natural or Artificial Opening Endoscopic, Diagnostic (ICD-10-PCS; 2018-04-12)
PROC: 0BDC8ZX Extraction of Right Upper Lung Lobe, Via Natural or Artificial Opening Endoscopic, Diagnostic (ICD-10-PCS; 2018-04-12)
PROC: 0BDB8ZX Extraction of Left Lower Lobe Bronchus, Via Natural or Artificial Opening Endoscopic, Diagnostic (ICD-10-PCS; 2018-04-12)
PROC: 0BD88ZX Extraction of Left Upper Lobe Bronchus, Via Natural or Artificial Opening Endoscopic, Diagnostic (ICD-10-PCS; 2018-04-12)
PROC: 30233K1 Transfusion of Nonautologous Frozen Plasma into Peripheral Vein, Percutaneous Approach (ICD-10-PCS; 2018-04-12)
PROC: 0B9F8ZX Drainage of Right Lower Lung Lobe, Via Natural or Artificial Opening Endoscopic, Diagnostic (ICD-10-PCS; principal; 2018-04-12 15:00)
PROC: 0B9G8ZX Drainage of Left Upper Lung Lobe, Via Natural or Artificial Opening Endoscopic, Diagnostic (ICD-10-PCS; 2018-04-12 15:00)
DX: J84.112 Idiopathic pulmonary fibrosis (principal); E43 Unspecified severe protein-calorie malnutrition; J96.11 Chronic respiratory failure with hypoxia; N18.4 Chronic kidney disease, stage 4 (severe); N17.9 Acute kidney failure, unspecified; E87.2 Acidosis; M10.9 Gout, unspecified; E11.22 Type 2 diabetes mellitus with diabetic chronic kidney disease; I12.9 Hypertensive chronic kidney disease with stage 1 through stage 4 chronic kidney disease, or unspecified chronic kidney disease; Z79.4 Long term (current) use of insulin; R06.03 Acute respiratory distress; E11.40 Type 2 diabetes mellitus with diabetic neuropathy, unspecified; E11.319 Type 2 diabetes mellitus with unspecified diabetic retinopathy without macular edema; E11.65 Type 2 diabetes mellitus with hyperglycemia; H04.129 Dry eye syndrome of unspecified lacrimal gland; F17.210 Nicotine dependence, cigarettes, uncomplicated; H54.7 Unspecified visual loss; E78.5 Hyperlipidemia, unspecified; D86.9 Sarcoidosis, unspecified; Z88.0 Allergy status to penicillin; Z68.24 Body mass index [BMI] 24.0-24.9, adult; J47.9 Bronchiectasis, uncomplicated; E88.09 Other disorders of plasma-protein metabolism, not elsewhere classified; N05.9 Unspecified nephritic syndrome with unspecified morphologic changes; D50.0 Iron deficiency anemia secondary to blood loss (chronic); L40.9 Psoriasis, unspecified; Z23 Encounter for immunization
CPT/HCPCS: 31623; 31625; 36415; 36600; 71045; 71046; 71250; 74230; 76770; 78802; 80048; 80053; 80076; 81001; 81050; 82164; 82550; 82553; 82570; 82575; 82595; 82728; 82805; 82947; 82948; 83036; 83520; 83540; 83615; 83735; 83880; 84100; 84132; 84156; 84466; 84484; 85025; 85379; 85610; 85651; 85730; 86021; 86039; 86160; 86200; 86235; 86335; 86431; 86850; 86900; 86920; 87102; 87109; 87110; 87116; 87205; 87206; 87252; 87278; 87335; 87390; 87400; 88305; 88312; 89051; 90732; 93005; 93306; 94640; 96360; 96372; 97139; 99285; A9556; A9570; G0433; G0435; J0171; J0692; J1756; J1815; J1940; J2001; J2920; J2930; J7050; P9016; P9017

== ENCOUNTER 2018-04-23 19:39 | Observation (INO) | payer MEDICARE ==
[~2018-04-23] VITALS: Ht 172.7 cm; Wt 75.0 kg
[~2018-04-23 19:39] MED LIST: ALLOPURINOL100 MG PO; AMLODIPINE BESYL5 MG PO; COLCRYS0.6 MG PO; KETOTIFEN FUMARA5 ML; LASIX20 MG PO; LEVEMIR100 UNIT/1; NEOMYCIN-POLYMY10 ML; NOVOLOG100 UNITS1; PREDNISONE20 MG PO; RESTASIS1 EACH; TYLENOL WITH C1 EACH PO
[2018-04-23 23:12] LABS: CLARITY,URINE CLEAR (CLEAR); COLOR,URINE YELLOW (YELLOW); LEUKOCYTE ESTERASE ,URINE NEGATIVE (NEGATIVE); NITRITE,URINE NEGATIVE (NEGATIVE); PROTEIN,URINE DIPSTICK 2+ (NEGATIVE)
[2018-04-23 23:13] LABS: BILIRUBIN,URINE NEGATIVE (NEGATIVE); KETONES,URINE NEGATIVE (NEGATIVE); URINE UROBILINOGEN 0.2 mg/dL (0.2 - 1)
[2018-04-23 23:24] LABS: BASOPHILS % 0.1 % (0.0-1.0); HEMATOCRIT 33.4 % (38.2-49.6); HEMOGLOBIN 10.4 g/dL (14.0-18.0); LYMPHOCYTES # (AUTO) 0.7 (1.0-3.2); LYMPHOCYTES % 4.5 % (18.0-39.1); MEAN CORPUSCULAR HEMOGLOBIN 28.3 pg (28-32); MEAN CORPUSCULAR HGB CONC 31.1 g/dL (31-35); MONOCYTES # (AUTO) 0.2 (0.2-0.8); MONOCYTES % 1.4 % (4.4-11.3); NEUTROPHILS # (AUTO) 13.8 (2.1-6.9); NEUTROPHILS % 93.4 % (38.7-80.0); PLATELET COUNT 303 x10e3/uL (140-360); RED BLOOD COUNT 3.67 x10e6/uL (4.3-5.7); RED CELL DISTRIBUTION WIDTH 15.3 % (11.7-14.4)
[2018-04-23 23:27] LABS: EPITHELIAL CELLS,URINE RARE /LPF; RBC,URINE 0-5 /HPF (0-5); WBC,URINE (MAN) 0-5 /HPF (0-5)
[2018-04-23 23:39] LABS: ALBUMIN 2.3 g/dL (3.5-5.0); ALBUMIN/GLOBULIN RATIO 0.5 (0.8-2.0); ANION GAP 17.1 mmol/L (8-16); CALCIUM 8.1 mg/dL (8.4-10.2); CREATININE, SERUM 2.48 mg/dL (0.72-1.25)
[2018-04-23 23:40] LABS: POTASSIUM 5.1 mmol/L (3.5-5.1)
[2018-04-23 23:45] LABS: CREATINE KINASE MB 1.5 ng/mL (0-5.0)
[2018-04-24] VITALS (8 sets, daily range): BP systolic 145–180; BP diastolic 62–91
[2018-04-24] MEDS ORDERED: ONDANSETRON HCL INJ 2MG/ML 2ML 2 MG/ML VIAL IV STA (00:22)
[2018-04-24] MEDS: SODIUM CHLORIDE 0.9% 1000ML 1,000 ML IV SCH ×2 (00:34→10:30)
[2018-04-24 01:57] LABS: LYMPHOCYTES % (MANUAL) 2 % (19-48); PLATELET ESTIMATE MARKEDLY INCREASED; PLATELET MORPHOLOGY COMMENT NORMAL; RBC MORPHOLOGY COMMENT NORMAL
[2018-04-24 01:58] LABS: MONOCYTES % (MANUAL) 1 % (3.4-9.0); NEUTROPHILS % (MANUAL) 97 % (40-74)
--- NOTE | 2018-04-24 02:40 | NUR ---
Received report from Ivory, ER nurse. Patient is no pain or distress. call light within reach. Patients daughter and at bedside. Patient came up via stetcher.
[2018-04-24 05:20] LABS: HEMATOCRIT 31.3 % (38.2-49.6); HEMOGLOBIN 9.6 g/dL (14.0-18.0); LYMPHOCYTES # (AUTO) 0.9 (1.0-3.2); MEAN CORPUSCULAR HEMOGLOBIN 28.2 pg (28-32); MEAN CORPUSCULAR HGB CONC 30.7 g/dL (31-35); MEAN CORPUSCULAR VOLUME 91.8 fL (81-99); MONOCYTES # (AUTO) 0.4 (0.2-0.8); MONOCYTES % 3.5 % (4.4-11.3); NEUTROPHILS # (AUTO) 9.7 (2.1-6.9); PLATELET COUNT 228 x10e3/uL (140-360); RED BLOOD COUNT 3.41 x10e6/uL (4.3-5.7); RED CELL DISTRIBUTION WIDTH 15.2 % (11.7-14.4)
[2018-04-24 06:01] LABS: ALBUMIN 2.1 g/dL (3.5-5.0); ALBUMIN/GLOBULIN RATIO 0.5 (0.8-2.0); CALCIUM 7.9 mg/dL (8.4-10.2); CREATININE, SERUM 2.37 mg/dL (0.72-1.25); MAGNESIUM 1.6 MG/DL (1.3-2.1); PHOSPHORUS 4.7 MG/DL (2.3-4.7)
--- NOTE | 2018-04-24 07:00 | NUR ---
RCD PT AT BED PT IS ALERT AND ORIENTED PT RESTING ON BED NO SIGNS OF ANY DISTRESS NOTED IV PATENT BED LOW AND LOCKED CALL LIGHT IN REACH
--- NOTE | 2018-04-24 07:15 | NUR ---
PT REQUESTED TO EAT SOMETHING PAGED AND NOTIFIED DR TARIQ GOT NEW ORDERS
--- NOTE | 2018-04-24 07:27 | NUR ---
received report from oncoming nurse. No pain or distress noted. call light within reach.
--- NOTE | 2018-04-24 07:29 | NUR ---
Report given to oncoming nurse. Call light within reach.
--- NOTE | 2018-04-24 12:16 | NUR ---
PAGED AND NOTIFIED BP 180/87 MM/HG TO DR TARIQ HE SAID HE COMING TO SEE THE PT
[2018-04-24] MEDS: AMLODIPINE BESYLATE 5 MG TAB PO SCH (12:30)
[2018-04-24] MEDS ORDERED: COLCHICINE 0.6 MG TAB PO SCH (13:30)
[2018-04-24] MEDS ORDERED: ALBUTEROL/IPRATROPIUM 3 ML NEB NEB PRN (13:30)
[2018-04-24] MEDS ORDERED: CLONIDINE HCL 0.1 MG TAB PO PRN (13:45)
[2018-04-24] MEDS: PREDNISONE 20 MG TAB PO SCH (14:00)
--- NOTE | 2018-04-24 14:07 | NUR ---
Nutrition Intervention Note RD Recommendation(s) for Physician: Initiate PO diet when medically feasible with Ensure Enlive Plan of Care: RD following, monitoring for tolerance and adequacy Nutrition reason for involvement: Nutrition Risk Trigger - MST RD Assessment Initial encounter with patient. Pt denies any difficulty chewing or swallowing, but does have missing teeth. Pt states that he has lost about 45 pounds with a usual body weight of 208 pounds Principal Problems/Diagnoses:Dehydration, vomiting PMH: T2DM, Gout, HTN, pulmonary fibrosis IVF: None GI: nausea and vomiting No BM yet Skin: intact Labs: (04/24/2018) Lab results reviewed Meds: (04/24/2018) MAR reviewed Malnutrition Evaluation (04/24/2018) The patient meets criteria for MODERATE protein-calorie malnutrition. Energy intake: <50% of estimated energy requirements for >1 month Weight loss: >7.5% in 3 months (Chronic) Fat loss: Mild, Muscle loss: Moderate Supporting Evidence: Fluid accumulation: none Functional Status: measurably reduced Diet Education Needs Assessment: Diet education not indicated Ht:68 Wt:167.31lbs BMI:25.4kg/m2 IBW:148lbs Estimated Nutritional Needs: 1901 - 2281.5 25-30 kcals/kg/bw 76-114g of protein at 1-1.5g/kg/bw Nutrition Prescription (Diet Order):NPO Food Allergies: No known food allergies Diet Adequacy: Not meeting protein needs Tolerance: NPO Nutrition Care Level: Moderate Nutrition Diagnosis: Malnutrition related to chronic illness as evidenced by involuntary wt loss and loss of lean body mass Goal:Patient will meet 75-100% of estimated needs by follow up Progress: Not Progressing Interventions: General healthful diet Monitoring/Evaluation: Total energy intake, Total protein intake, Weight change Mykel Waldron RD, LD, CNSC
--- NOTE | 2018-04-24 15:17 | Diagnostic Imaging Report ---
EXAM: Abdomen 1 View INDICATION: ^VOMITING ^[id number] ^1420 COMPARISON: None FINDINGS: Nonobstructive bowel gas pattern. No signs of pneumoperitoneum. Contrast is seen throughout the colon. No calcification overlying renal shadows. No acute osseous abnormality. IMPRESSION: 1. Nonobstructive bowel gas pattern. Signed by: Dr. Javier Rojo MD on 04/24/2018 3:14 PM
[2018-04-24] MEDS: INSULIN LISPRO 100 UNIT/1 ML 3ML VIAL SQ SCH ×2 (16:30→20:32)
--- NOTE | 2018-04-24 18:41 | NUR ---
PT RESTING ON BED BED SIDE REPORT GIVEN TO ONCOMING NURSE
--- NOTE | 2018-04-24 19:00 | NUR ---
RECEIVED REPORT FROM PREVIOUS NURSE. PATIENT IN BED. NO PAIN OR DISTRESS. CALL LIGHT WITHIN REACH. AT BEDSIDE.
--- NOTE | 2018-04-24 19:34 | NUR ---
PATIENT HAS NOT HAD A BOWEL MOVEMENT SINCE THURSDAY AND WOULD LIKE AN ENEMA. CALLED AND TALKED TO DR. Livan TARIQ AND HE ORDERED MINERAL OIL ENEMA ONCE TONIGHT
[2018-04-24] MEDS ORDERED: MINERAL OIL 132 ML BTL PR ONE (20:00)
[2018-04-24] MEDS: ACETAMINOPHEN/CODEINE 300MG - 30MG TAB PO PRN (20:37)
[2018-04-24] MEDS: HEPARIN SOD (PORCINE) 5,000 UNIT/ML VIAL SC SCH (21:30)
[2018-04-25] VITALS (7 sets, daily range): BP systolic 131–161; BP diastolic 67–94
--- NOTE | 2018-04-25 06:55 | NUR ---
Gave report to oncoming nurse. Patient asleep in bed. No pain or distress. Call light within reach.
[2018-04-25] MEDS: INSULIN LISPRO 100 UNIT/1 ML 3ML VIAL SQ SCH ×4 (07:30→20:34)
[2018-04-25] MEDS: FUROSEMIDE 20 MG TAB PO SCH (10:36)
[2018-04-25] MEDS: ALLOPURINOL 100 MG TAB PO SCH (10:36)
[2018-04-25] MEDS: AMLODIPINE BESYLATE 5 MG TAB PO SCH (10:36)
[2018-04-25] MEDS: PREDNISONE 20 MG TAB PO SCH (10:36)
[2018-04-25] MEDS: HEPARIN SOD (PORCINE) 5,000 UNIT/ML VIAL SC SCH ×2 (11:05→20:35)
[2018-04-25] MEDS ORDERED: SIMETHICONE 80 MG CHEW PO PRN (14:30)
[2018-04-25] MEDS ORDERED: BISACODYL 10 MG SUPP PR ONE (14:45)
--- NOTE | 2018-04-25 15:20 | NUR ---
Visit made by the Spiritual Care Department Pastoral Visitor, Leena Monzon. PV provided pastoral presence, prayer, communion, hospitality, and supportive listening. Pastoral Visitor informed pt/family of the scope of [employer] and availability. LUISITO WATSON [facility] Spiritual Care Department O: [phone] Pager: [phone] ([phone] calling from)
--- NOTE | 2018-04-25 19:00 | NUR ---
Received report from previous nurse. patient in no pain or distress. call light within reach. Patient resting in bed. at bedside.
[2018-04-25] MEDS: ACETAMINOPHEN/CODEINE 300MG - 30MG TAB PO PRN (21:32)
[2018-04-26] VITALS: BP 139/71
[2018-04-26 04:00] VITALS: BP 131/70
--- NOTE | 2018-04-26 07:10 | NUR ---
RCD PT AT BED PT IS ALERT AND ORIENTED PT RESTING ON BED NO SIGNS OF ANY DISTRESS NOTED FAMILY AT BED SIDE BED LOW AND LOCKED CALL LIGHT IN REACH
--- NOTE | 2018-04-26 07:17 | NUR ---
Gave report to oncoming nurse. Patient asleep in bed. no pain or distress. call light within reach. at bedside
[2018-04-26] MEDS: INSULIN LISPRO 100 UNIT/1 ML 3ML VIAL SQ SCH ×3 (07:30→16:29)
[2018-04-26 08:07] VITALS: BP 146/65
[2018-04-26 09:00] VITALS: BP 146/65
[2018-04-26] MEDS: HEPARIN SOD (PORCINE) 5,000 UNIT/ML VIAL SC SCH (09:00)
[2018-04-26] MEDS: ALLOPURINOL 100 MG TAB PO SCH (09:00)
[2018-04-26] MEDS: AMLODIPINE BESYLATE 5 MG TAB PO SCH (09:00)
[2018-04-26] MEDS: FUROSEMIDE 20 MG TAB PO SCH (09:00)
[2018-04-26] MEDS: PREDNISONE 20 MG TAB PO SCH (09:00)
[2018-04-26 11:29] VITALS: BP 133/81
[2018-04-26] MEDS ORDERED: LACTULOSE SYRUP 20 GM/30 ML UDC PO NR (12:00)
[2018-04-26] MEDS ORDERED: BISACODYL 10 MG SUPP PR NR (12:00)
--- NOTE | 2018-04-26 13:58 | NUR ---
CM SPOKE TO PATIENT AND PATIENT REGARDING HOME O2 PORTABLES. PATIENT SET UP WITH OXYGEN DURING THEIR LAST VISIT AND RETURNED WITH N/V AND REQUESTING PORTABLES AT HOME. PATIENT AND PATIENT INFORMED THAT ANY CHANGES MUST HAVE ORDERS AND PATIENT MUST QUALIFY. PATIENT WILL NEED TO GET WITH OXYGEN COMPANY WITH ANY CHANGES SO THEY CAN RECEIVE ORDERS FROM ORIGINAL MD THAT PRESCRIBED OXYGEN. PATIENT WITH O2 AT HOME AND AT BASELINE. PATIENT CLEARED BY CASE MANAGEMENT FOR DISCHARGE.
[2018-04-26 16:58] VITALS: BP 145/73
--- NOTE | 2018-04-26 17:35 | NUR ---
PT WENT HOME IN SAFE CONDITION WITH HIS
--- NOTE | 2018-04-27 11:00 | Discharge Summary ---
PRIMARY CARE PHYSICIAN: Jayashree Sanchez MD FINAL DIAGNOSIS: Intractable nausea and vomiting, likely due to constipation. SECONDARY DIAGNOSES: 1. Chronic respiratory failure due to pulmonary fibrosis. 2. Stage IV chronic kidney disease. 3. Hypertension. 4. Diabetes. CONSULTANTS: None. PROCEDURES/STUDIES PERFORMED: None. HISTORY: Per H and P. HOSPITAL COURSE: The patient slowly improved. It was difficult to get him to have a bowel movement, especially given the fact that we cannot give him magnesium citrate nor Fleet enema due to his chronic kidney disease. The patient is also allergic to GoLYTELY as well. Simethicone was given as well to help with his gas. The patient should be able to go home later on today if he tolerates his soft diet and has a bowel movement. Of note, the patient's gallium scan was completely normal, thus likely ruled out sarcoidosis as a cause for his pulmonary fibrosis. The patient was seen and examined today. CONDITION ON DISCHARGE: Improved. DISCHARGE MEDICATIONS: Please see medication reconciliation form. MD YE Lincoln/VASQUEZ /[id number]
== END 2018-04-26 17:35 | disposition home or self-care (01) ==
LOC: ER 19:39 → ERHOLD 22:30 → MED/SURG2 04-24 02:56
PROVIDERS: ADMIT Internal Medicine; ATTEND Internal Medicine
DX: K59.00 Constipation, unspecified (principal); E86.0 Dehydration; E11.22 Type 2 diabetes mellitus with diabetic chronic kidney disease; I12.9 Hypertensive chronic kidney disease with stage 1 through stage 4 chronic kidney disease, or unspecified chronic kidney disease; N18.4 Chronic kidney disease, stage 4 (severe); J84.10 Pulmonary fibrosis, unspecified; Z83.3 Family history of diabetes mellitus; Z88.0 Allergy status to penicillin; J96.10 Chronic respiratory failure, unspecified whether with hypoxia or hypercapnia; Z79.4 Long term (current) use of insulin
CPT/HCPCS: 36415 ×4; 74018; 80053 ×2; 81001; 82550; 82553; 82948 ×3; 83605; 83690; 83735; 84100; 84484; 85025 ×2; 85730; 99284; G0378 ×4; J1644 ×3; J2405; J7030; J7512 ×3

== ENCOUNTER 2018-09-22 15:02 | Inpatient (IN) | payer MEDICARE ==
[~2018-09-22] VITALS: Ht 172.7 cm; Wt 93.0 kg
--- OUTSIDE RECORDS SUMMARY | 2018-09-22 15:05 | XMS REPORT | Clinical Summary ---
Author Author RAYA [facility] Address Unknown Phone Unavailable Care Team Providers Care Manager Clinical Pharmacy Name Role Phone Jayashree Sanchez PCP Allergies Comments Active Allergy Reactions Severity Noted Date Penicillins Hives, High 07/14/2018 Shortness Of Breath, Nausea Only Medications End Date Status Medication Sig Dispensed Refills Start Date 07/23/2018 Discontinued amLODIPine (NORVASC) 5 MG Take 5 mg by 0 tablet mouth daily. 07/23/2018 Discontinued atorvastatin (LIPITOR) 80 Take 80 mg by 0 MG tablet mouth daily. 07/23/2018 Discontinued predniSONE (DELTASONE) 5 Take 5 mg by 0 MG tablet mouth 3 (three) times daily. 07/23/2018 Discontinued insulin detemir U-100 Inject 35 0 (LEVEMIR) 100 unit/mL (3 Units mL) InPn injection subcutaneousl y nightly. 07/23/2018 Discontinued insulin aspart U-100 Inject 10-15 0 (NOVOLOG) 100 unit/mL (3 Units mL) InPn subcutaneousl y 3 (three) times daily before meals. 07/23/2018 Discontinued furosemide (LASIX) 20 MG Take 20 mg by 0 tablet mouth every other day. 07/23/2018 Discontinued brimonidine (ALPHAGAN) Place 1 drop 0 0.2 % ophthalmic solution into both eyes 2 (two) times daily. 07/23/2018 Discontinued latanoprost (XALATAN) Place 1 drop 0 0.005 % ophthalmic into both solution eyes nightly. 07/23/2018 Discontinued cycloSPORINE (RESTASIS) Place 1 drop 0 0.05 % ophthalmic into both emulsion eyes as needed. Active Problems Not on file Encounters Care Team Description Date Type Specialty Resource, Oqmt Preadmit Phone 07/14/2018 Hospital Pre-Admission Testing Encounter after 09/21/2017 Social History Date Tobacco Use Types Packs/Day Years Used Quit: 01/2018 Former Smoker 25 Smokeless Tobacco: Never Used Comments: 6 cigarettes/day Alcohol Use Drinks/Week oz/Week Comments No Alcohol Habits Answer Date Recorded How often do you have a drink containing alcohol? Never 07/14/2018 How many drinks containing alcohol do you have on Not asked a typical day when you are drinking? How often do you have six or more drinks on one Not asked occasion? Sex Assigned at Date Recorded Not on file Industry Job Start Date Occupation Not on file Not on file Not on file Travel End Travel History Travel Start No recent travel history available. Last Filed Vital Signs Time Taken Vital Sign Reading - Blood Pressure - - Pulse - - Temperature - - Respiratory Rate - - Oxygen Saturation - - Inhaled Oxygen - Concentration 07/14/2018 1:50 PM CDT Weight 92.5 kg (204 lb) 07/14/2018 1:50 PM CDT Height 172.7 cm (5' 8") 07/14/2018 1:50 PM CDT Body Mass Index 31.02 Plan of Treatment Not on file Results Not on fileafter 09/21/2017 Insurance Payer Benefit Subscriber ID Type Phone Address Plan / Group [facility] xxxxxxxxxxx MEDICARE ADV
[2018-09-22 15:53] LABS: BASOPHILS % 0.1 % (0.0-1.0); EOSINOPHILS # (AUTO) 0.1 (0.0-0.4); EOSINOPHILS % 0.4 % (0.0-6.0); HEMATOCRIT 25.2 % (38.2-49.6); HEMOGLOBIN 7.8 g/dL (14.0-18.0); LYMPHOCYTES % 8.3 % (18.0-39.1); MEAN CORPUSCULAR HEMOGLOBIN 28.2 pg (28-32); MONOCYTES # (AUTO) 0.8 (0.2-0.8); MONOCYTES % 6.2 % (4.4-11.3); NEUTROPHILS # (AUTO) 10.2 (2.1-6.9); NEUTROPHILS % 84.3 % (38.7-80.0); PLATELET COUNT 201 x10e3/uL (140-360); RED BLOOD COUNT 2.77 x10e6/uL (4.3-5.7); RED CELL DISTRIBUTION WIDTH 15.3 % (11.7-14.4)
[2018-09-22] MEDS ORDERED: ATORVASTATIN CA80 MG PO (15:58)
[2018-09-22 16:05] LABS: BACTERIA,URINE FEW /HPF
[2018-09-22 16:06] LABS: RBC,URINE 0-5 /HPF (0-5)
[2018-09-22 16:08] LABS: BILIRUBIN,URINE NEGATIVE (NEGATIVE); CLARITY,URINE SL CLOUDY (CLEAR); COLOR,URINE YELLOW (YELLOW); KETONES,URINE NEGATIVE (NEGATIVE); LEUKOCYTE ESTERASE ,URINE NEGATIVE (NEGATIVE); NITRITE,URINE NEGATIVE (NEGATIVE); PROTEIN,URINE DIPSTICK 2+ (NEGATIVE); URINE UROBILINOGEN 0.2 mg/dL (0.2 - 1)
[2018-09-22 16:14] LABS: ALBUMIN 2.2 g/dL (3.5-5.0); ALBUMIN/GLOBULIN RATIO 0.6 (0.8-2.0); ANION GAP 14.7 mmol/L (8-16); CREATININE, SERUM 5.54 mg/dL (0.72-1.25); POTASSIUM 4.7 mmol/L (3.5-5.1)
[2018-09-22 16:17] LABS: CALCIUM 6.8 mg/dL (8.4-10.2)
[2018-09-22] MEDS ORDERED: CALCIUM GLUCONATE 10% INJ 4.65 MEQ in SODIUM CHLORIDE 0.9% 50ML 50 ML IV ONE (16:45)
--- NOTE | 2018-09-22 17:09 | Diagnostic Imaging Report ---
EXAMINATION: CHEST SINGLE (PORTABLE) INDICATION: Shortness of breath COMPARISON: Chest radiograph of 04/22/2018 FINDINGS: LINES/TUBES:EKG leads overlie the chest. LUNGS:The lung volumes are low. No focal consolidation or pulmonary edema. PLEURA:No pleural effusion or pneumothorax. MEDIASTINUM:Cardiomediastinal silhouette is stably enlarged. BONES/SOFT TISSUES:No acute osseous injury. ABDOMEN:No free air under the diaphragm. IMPRESSION: No focal pneumonia or pulmonary edema. Stable cardiomegaly. Signed by: Marvin Kelly MD on 09/22/2018 5:06 PM
--- OUTSIDE RECORDS SUMMARY | 2018-09-22 17:17 | XMS REPORT | Clinical Summary ---
Author Author RAYA [facility] Address Unknown Phone Unavailable Care Team Providers Care Severity Of Illness Coordinator Name Role Phone Jayashree Sanchez PCP Allergies [...] ID Type Phone Address Plan / Group [facility] xxxxxxxxxxx MEDICARE ADV
[2018-09-22] MEDS: SODIUM CHLORIDE 0.9% 1000ML 1,000 ML IV SCH (17:30)
[2018-09-22] MEDS ORDERED: HYDRALAZINE HCL 20 MG/ML VIAL IV PRN ×2 (17:45→20:30)
--- NOTE | 2018-09-22 18:14 | NUR ---
received pt from ER dept. patient in restroom when this nurse arrived to greet patient. ambulating with steady gait however patient is legally blind and requires direction. daughter at bedside. call light placed within reach and instructed on how to use to call for assistance. pt verbalized understanding.
[2018-09-22 19:14] VITALS: BP 157/76
--- NOTE | 2018-09-22 20:00 | NUR ---
PATIENT IS AOX4, NO RESPIRATORY DISTRESS NOTED. PATIENT IS LEGALLY BLIND AND RESPONDS CLEARLY TO ALL VERBAL COMMANDS. FAMILY MEMBERS ARE PRESENT IN ROOM, NASAL CANNULA INTACT AND FLOWING. BED IS LOCKED IN LOWEST POSITION, BOTH SIDE RAILS ARE UP, CALL LIGHT IN REACH, WILL CONTINUE TO MONITOR.
[2018-09-22] MEDS ORDERED: ACETAMINOPHEN 325 MG TAB PO PRN (20:30)
[2018-09-22] MEDS ORDERED: ONDANSETRON HCL INJ 2MG/ML 2ML 2 MG/ML VIAL IV PRN (20:30)
[2018-09-22] MEDS: INSULIN LISPRO 100 UNIT/1 ML 3ML VIAL SQ SCH (21:00)
[2018-09-22] MEDS ORDERED: AMLODIPINE BESYLATE 5 MG TAB PO SCH (21:00)
[2018-09-22 22:00] VITALS: BP 157/76
[2018-09-22 22:23] VITALS: BP 157/76
[2018-09-23] VITALS (8 sets, daily range): BP systolic 143–181; BP diastolic 67–86
--- NOTE | 2018-09-23 01:40 | NUR ---
PATIENT RESTING IN ROOM, BOTH EYES CLOSED. NO SIGNS OF RESPIRATORY DISTRESS NOTED, FAMILY MEMBER PRESENT AT BEDSIDE. CALL LIGHT IS WITHIN EASY REACH, WILL CONTINUE TO MONITOR.
[2018-09-23] MEDS: SODIUM CHLORIDE 0.9% 1000ML 1,000 ML IV SCH ×2 (03:22→08:33)
[2018-09-23 05:16] LABS: BASOPHILS % 0.2 % (0.0-1.0); EOSINOPHILS # (AUTO) 0.2 (0.0-0.4); EOSINOPHILS % 1.9 % (0.0-6.0); HEMATOCRIT 24.2 % (38.2-49.6); HEMOGLOBIN 7.5 g/dL (14.0-18.0); LYMPHOCYTES # (AUTO) 1.4 (1.0-3.2); LYMPHOCYTES % 14.8 % (18.0-39.1); MEAN CORPUSCULAR HEMOGLOBIN 27.8 pg (28-32); MEAN CORPUSCULAR VOLUME 89.6 fL (81-99); MONOCYTES # (AUTO) 0.8 (0.2-0.8); MONOCYTES % 7.9 % (4.4-11.3); NEUTROPHILS % 74.6 % (38.7-80.0); PLATELET COUNT 197 x10e3/uL (140-360); RED CELL DISTRIBUTION WIDTH 15.4 % (11.7-14.4)
[2018-09-23 05:22] LABS: INR 0.85; PROTHROMBIN TIME 12.1 seconds (11.9-14.5)
[2018-09-23 05:23] LABS: PARTIAL THROMBOPLASTIN TIME 31.2 seconds (23.8-35.5)
[2018-09-23 05:32] LABS: ALBUMIN 2.1 g/dL (3.5-5.0); ALBUMIN/GLOBULIN RATIO 0.6 (0.8-2.0); MAGNESIUM 1.6 MG/DL (1.3-2.1); PHOSPHORUS 4.7 MG/DL (2.3-4.7)
[2018-09-23 05:33] LABS: CALCIUM 6.8 mg/dL (8.4-10.2)
[2018-09-23 05:48] LABS: % IRON SATURATION 8 % (15-50); IRON 28 ug/dL (65-175); TOTAL IRON BINDING CAPACITY 368 ug/dL (261-478); TRANSFERRIN 263 mg/dL (174-364)
[2018-09-23] MEDS ORDERED: CALCIUM GLUCONATE 10% INJ 0.465 MEQ/ML VIAL ONE (06:21)
[2018-09-23] MEDS ORDERED: CALCIUM GLUCONATE 10% INJ 4.65 MEQ in SODIUM CHLORIDE 0.9% 50ML 50 ML IV ONE (06:45)
[2018-09-23] MEDS: INSULIN LISPRO 100 UNIT/1 ML 3ML VIAL SQ SCH ×4 (07:30→20:49)
--- NOTE | 2018-09-23 07:55 | NUR ---
Morning rounding completed. Patient AOx4, sitting up in bed, wearing dark glasses. Responds clearly to commands and questions. No signs of distress. Family at bedside. Bed locked and in low position. Call light and bedside table placed within reach. Patient instructed to call for assistance if needed, verbalized understanding. Will continue to monitor.
[2018-09-23] MEDS: IRON SUCROSE 100 MG in SODIUM CHLORIDE 0.9% 100 ML 100 ML IV SCH (11:59)
[2018-09-23] MEDS: NIFEDIPINE CR 30 MG TAB PO SCH (12:46)
--- NOTE | 2018-09-23 13:06 | Consultation ---
DATE OF CONSULTATION: Pulmonary Critical Care Consultation CHIEF COMPLAINT: History of bronchiectasis, pulmonary fibrosis and sleep apnea. HISTORY OF PRESENT ILLNESS: The patient is a 62-year-old man. He was admitted to [facility] in April of 2018 with dyspnea and bilateral infiltrates. His CT scan at that time showed some bronchiectasis and mild pulmonary fibrosis. He underwent a bronchoscopy that showed no infections or mycobacterial illness. The patient was also found to have an elevated creatinine and nephrotic-range proteinuria. He improved with diuresis. He has subsequently been following up with [facility]. His creatinine has gradually increased from 2.7 to 5. He is following with a drafting layout worker, Dr. Dent. He also follows with a valve pipe irrigator through [facility]. He notes that his respiratory problems have basically improved, but he was diagnosed with sleep apnea and was started on CPAP. PAST MEDICAL HISTORY: 1. Renal failure, stage 4 with nephrotic-range proteinuria. 2. Bronchiectasis. 3. Diabetes. 4. Diabetic retinopathy. 5. Hypertension. 6. Gout. PAST SURGICAL HISTORY: Noncontributory. ALLERGIES: PENICILLINS. SOCIAL HISTORY: He quit smoking. He is not a drinker. He was previously working for [employer]. He lives in [place]. REVIEW OF SYSTEMS: The patient is afebrile. He is not having any headache or neck pain. He denies chest pain. He is not complaining of dyspnea. He has no abdominal pain. He has no nausea or vomiting. He has mild leg edema. PHYSICAL EXAMINATION: VITAL SIGNS: The patient is afebrile. The blood pressure is 163/78 and saturation is 98% on 2 L. HEENT: Shows no facial swelling or erythema. The oropharynx is normal. LYMPHATIC: Shows no submandibular, cervical, or supraclavicular adenopathy. CARDIAC: Reveals a regular rate and rhythm with normal S1 and S2. There are no murmurs or rubs. LUNGS: Auscultation of lungs reveals rhonchorous breath sounds bilaterally. There is no wheezing. ABDOMEN: Soft and nontender. There is no rebound or guarding. EXTREMITIES: Shows 1+ leg edema. LABORATORY DATA: Hemoglobin is 7.5 and the white blood cell count is 9.4. The platelet count is 197. The BUN to creatinine ratio is 64 to 5. The calcium is 6.8 with an ionized calcium of 0.9. The albumin is 2.1. RADIOGRAPHIC DATA: Chest x-ray shows stable cardiomegaly. IMPRESSION: 1. Bronchiectasis without acute exacerbation. 2. Nephrotic-range proteinuria and stage 4 chronic renal failure. 3. Anemia secondary to chronic blood loss. 4. Hypocalcemia secondary to low albumin and renal disease. 5. Diabetes and diabetic retinopathy. 6. Hypertension. PLAN: 1. Pulmonary status has improved since April. The family does not need any acute interventions. 2. Continue CPAP at night. 3. Continue to monitor renal function and renal disease. 4. Monitor blood sugars and blood pressure. 5. Monitor blood counts. Hold transfusion unless hemoglobin is less than 7. Sunday Guzman MD [facility]/MODL /[id number]
--- NOTE | 2018-09-23 15:08 | Consultation ---
DATE OF CONSULTATION: 09/23/2018 HISTORY OF PRESENT ILLNESS: Mr. Yves Joseph is known to us. He is a 62-year-old gentleman, underlying history of diabetes with diabetic kidney disease and end-organ damage due to diabetes including atherosclerotic cardiovascular disease, peripheral vascular disease, retinopathy, neuropathy, has underlying history of hypertension, advance kidney failure, CKD 4, was sent in because of hypocalcemia and anemia. The patient currently awake, alert, resting. by bedside. Denies any shortness of breath, nausea, vomiting, headache, fever, or chills. LABORATORY DATA: Lab shows sodium 140, potassium 4, bicarbonate 23, BUN 64, creatinine 5 with a calcium 6.8, and ionized calcium 0.9. His phosphorus is 4.7. His magnesium is 1.6. His albumin is 2.1. Total protein 5.5. Intact PTH and vitamin D levels are pending. Hemoglobin 7.5. Urinalysis shows specific gravity 10/20. Urinalysis otherwise microscopy benign. SOCIAL HISTORY: . Does not smoke or drink. ALLERGIES: TO PENICILLIN. CURRENT MEDICATIONS: The patient received calcium gluconate, currently on IV normal saline, Tylenol p.r.n., amlodipine 5 mg p.o. at bedtime, hydralazine p.r.n., insulin before meals and at bedtime, and ondansetron p.r.n. PHYSICAL EXAMINATION: GENERAL: Awake, alert, and oriented x3, lying supine in bed. No apparent distress. VITAL SIGNS: Blood pressure 163/78, pulse rate 88, afebrile, and oxygen saturation 99%. HEAD AND NECK: Cornea clear. Mucosa moist. Neck veins flat. LUNGS: Occasional rales, right base more than left. HEART: S1 and S2 audible. ABDOMEN: Otherwise soft and nontender. EXTREMITIES: Lower extremity examination shows no edema. IMPRESSION: Advanced kidney failure with most likely proteinuria, must rule out nephrotic-range proteinuria with [id number] kidney failure, underlying chronic kidney disease 4 with evidence of mild congestive heart failure. Chest x-ray shows evidence of cardiomegaly, history of hypertension, multiple comorbidities, hypocalcemic, and hypoalbuminemic with iron-deficiency anemia. PLAN: I will start IV iron. Discontinue existing IV fluids. Obtain 24-hour urine for creatinine clearance and protein. He may require dialysis. Needs a permanent access in the form of AV fistula. Discussed with the patient and , they both agree. Please see records. MD JIM Smith/VASQUEZ /[id number]
[2018-09-23] MEDS ORDERED: CALCIUM CARBONATE 500 MG CHEWABLE TABS PO SCH (17:00)
[2018-09-23] MEDS: CALCIUM CARBONATE 500 MG CHEWABLE TABS PO SCH ×2 (17:14→20:48)
--- NOTE | 2018-09-23 22:00 | NUR ---
PAGED AND SPOKE TO DR TARIQ,N/O RECEIVED FOR CPAP FOR HS.CALLED RT AND NOTIFIED.
--- NOTE | 2018-09-23 23:19 | Consultation ---
DATE OF CONSULTATION: 09/23/2018 REQUESTED PHYSICAN: Dr. Oneal. MILIEU THERAPIST: Dr. Vernon. REASON FOR CONSULT: End-stage renal failure, need for permanent dialysis access. HISTORY OF PRESENT ILLNESS: I saw and evaluated this patient on September 23, 2018. He is a 62-year-old man with longstanding insulin-dependent diabetes, who recently had cataract surgery and has longstanding renal insufficiency. On admission, he was nauseous and had increasing peripheral edema. He was found to have a critically low calcium, which has been treated. Dialysis has been initiated via a catheter. Permanent dialysis access is not required. The patient has a longstanding history of insulin-dependant diabetes and has been taking insulin for many years. He denies any history of coronary artery disease or myocardial infarction. No stroke. Complications of diabetes including retinopathy and renal failure. No fevers or chills. PAST MEDICAL HISTORY: Positive for diabetes, chronic renal insufficiency, pulmonary fibrosis, hypertension, gout, insulin-dependent diabetes, and retinopathy. The patient is legally blind. PAST SURGICAL HISTORY: Positive for cataract surgery and dialysis catheter placement. MEDICATIONS AT HOME: Include: Insulin, atorvastatin, Plavix, and atenolol. ALLERGIES: NONE KNOWN. SOCIAL HISTORY: Negative for smoking, alcohol, or IV drugs. Lives with his family. They are quite supportive and are at the bedside tonight. FAMILY HISTORY: Negative for early renal failure or early coronary artery disease. REVIEW OF SYSTEMS: GENERAL: Positive for fatigue and malaise. NEUROLOGIC: Negative for focal weakness in the extremities or dysarthria. HEENT: Positive for visual problems as above. CARDIAC: Negative for chest pain or palpitations. PULMONARY: Positive shortness of breath and pulmonary fibrosis. Negative for wheezing. GI: No constipation or diarrhea. : Negative for hematuria or dysuria. HEMATOLOGIC: Negative for clotting or bleeding. INFECTIOUS: Negative for fevers or sweating. PSYCHIATRIC: Negative for depression or anxiety. MUSCULOSKELETAL: Negative for fracture. PHYSICAL EXAMINATION: GENERAL: Somewhat overweight man, lying flat in bed. VITAL SIGNS: Blood pressure 130/70, pulse 80 and regular, and respirations 16 and nonlabored. and family are at the bedside. HEENT: The patient is wearing sunglasses after his cataract surgery. Mucous membranes are moist. NECK: Supple and nontender. No JVD. CARDIAC: Shows a regular rate and rhythm. There is a normal S1 and S2. There is no S3, S4, rub, or murmur. LUNGS: Clear to auscultation, percussion bilaterally. ABDOMEN: Globoid, benign. Good bowel sounds. No hepatosplenomegaly. BACK: No CVA tenderness. No muscular spasm. EXTREMITIES: No cyanosis, clubbing, or edema. Cephalic vein is visible and palpable in the forearms bilaterally. VASCULAR: Carotids 2+/2+ bilaterally. No carotid bruits. Brachials, radials, ulnars, and femorals 2+/2+ bilaterally. No palpable dorsalis pedis or posterior tibialis in either foot. SKIN: No rashes or nonhealing ulcers. MUSCULOSKELETAL: Full range of motion at all joints. No joint swelling. NEUROLOGIC: Cranial nerves 2 through 12 are intact. Sensation is intact to light touch and pinprick bilaterally. Strength is 5/5 in all extremities. LYMPHATICS: Negative for cervical, clavicular, or femoral adenopathy. LABORATORY DATA: Sodium 140, potassium 4.0, BUN 64, and creatinine 5.0. Hemoglobin 7.5, hematocrit 24.2, and platelet count 197,000. INR 0.85. PT 12.1, PTT 31.2. IMPRESSION: I agree with the need for permanent dialysis access. On physical exam, the cephalic vein in the forearm appears of good caliber and quality. Most likely, a left upper extremity AV fistula can be created. The patient is right-handed. I described the operation to the patient, his and family. I told them that the risks of surgery would include , bleeding, infection, heart attack, stroke, pneumonia, prolonged ICU stay, mechanical ventilation, tracheostomy, permanent hand/limb muscle nerve damage, hand/limb amputation, hand/limb chronic pain, a 10% to 15% chance of the fistula might not mature appropriately and require subsequent revision, further surgery, replacement, etc. The patient and his family all stated that they understood, no further question and wanted to proceed. Operation will be scheduled. Thank you much for asking me see this nice man. MD ELZBIETA Greene/VASQUEZ /[id number]
[2018-09-24 04:56] VITALS: BP 135/60
[2018-09-24 05:59] LABS: ALBUMIN 1.9 g/dL (3.5-5.0); ALBUMIN/GLOBULIN RATIO 0.6 (0.8-2.0); CALCIUM 7.5 mg/dL (8.4-10.2)
--- NOTE | 2018-09-24 07:15 | NUR ---
BEDSIDE SHIFT REPORT GIVEN TO ONCOMING NURSE.PT RESTING IN BED WITH NO S/S OF DISTRESS.
[2018-09-24 08:15] VITALS: BP 157/71
[2018-09-24 08:55] LABS: BASOPHILS % 0.3 % (0.0-1.0); EOSINOPHILS # (AUTO) 0.2 (0.0-0.4); EOSINOPHILS % 2.3 % (0.0-6.0); HEMATOCRIT 23.2 % (38.2-49.6); HEMOGLOBIN 7.1 g/dL (14.0-18.0); LYMPHOCYTES # (AUTO) 1.4 (1.0-3.2); LYMPHOCYTES % 15.1 % (18.0-39.1); MEAN CORPUSCULAR HGB CONC 30.6 g/dL (31-35); MEAN CORPUSCULAR VOLUME 91.3 fL (81-99); MONOCYTES # (AUTO) 0.8 (0.2-0.8); MONOCYTES % 8.9 % (4.4-11.3); NEUTROPHILS # (AUTO) 6.9 (2.1-6.9); NEUTROPHILS % 72.8 % (38.7-80.0); PLATELET COUNT 192 x10e3/uL (140-360); RED BLOOD COUNT 2.54 x10e6/uL (4.3-5.7); RED CELL DISTRIBUTION WIDTH 15.6 % (11.7-14.4)
[2018-09-24] MEDS ORDERED: CALCITRIOL 0.25 MCG CAP PO SCH (09:00)
[2018-09-24 09:06] VITALS: BP 157/71
[2018-09-24] MEDS: NIFEDIPINE CR 30 MG TAB PO SCH (09:07)
[2018-09-24] MEDS: CALCIUM CARBONATE 500 MG CHEWABLE TABS PO SCH ×3 (09:07→21:12)
[2018-09-24] MEDS: INSULIN LISPRO 100 UNIT/1 ML 3ML VIAL SQ SCH ×4 (09:08→21:12)
--- NOTE | 2018-09-24 09:29 | NUR ---
paged to notify of HGb 7.1
--- NOTE | 2018-09-24 09:31 | NUR ---
spoke to Joe, 's resident, in regards to HGB 7.1. States "I will talk to the doctor."
--- NOTE | 2018-09-24 11:00 | NUR ---
Per OR. procedure for HD access has been cancelled by . aware and states "I will talk to to inform him"
[2018-09-24] MEDS: IRON SUCROSE 100 MG in SODIUM CHLORIDE 0.9% 100 ML 100 ML IV SCH (11:13)
[2018-09-24] MEDS ORDERED: METHYLPREDNISOLONE SOD SUCC 40 MG/ML VIAL 1ML IV ONE (11:30)
[2018-09-24] MEDS ORDERED: PREDNISONE 5 MG TAB PO ONE (11:30)
[2018-09-24 12:00] VITALS: BP 146/74
--- NOTE | 2018-09-24 12:30 | NUR ---
EDUCATED ABOUT IMM, SIGNED, FILED IN CHART, WITH COPY LEFT WITH FAMILY AT BEDSIDE.
--- NOTE | 2018-09-24 13:50 | NUR ---
Called for procedure clarification. Per , 's resident, " I don't see patient on my schedule. If he is not on my schedule and OR notified you procedure had been cancelled, then patient will not have procedure." notified.
[2018-09-24] MEDS ORDERED: ONDANSETRON HCL 4 MG ORAL DISINTEGRATING TAB PO PRN (14:45)
[2018-09-24 15:12] LABS: CREATININE,URINE RANDOM 44.08 mg/dL (63-166)
[2018-09-24 16:00] VITALS: BP 159/81
--- NOTE | 2018-09-24 18:14 | Progress Note ---
DATE: SUBJECTIVE: The patient's AV fistula procedure was canceled. He feels better and is eager to go home. PHYSICAL EXAMINATION: VITAL SIGNS: The patient is afebrile. The blood pressure is 146/74, saturation 100%. HEENT: Shows no facial swelling or erythema. CARDIAC: Reveals regular rate and rhythm with normal S1 and S2. LUNGS: Auscultation of lungs shows clear breath sounds bilaterally. There is no wheezing. ABDOMEN: Soft, nontender. There is no rebound or guarding. IMPRESSION: 1. Nephrotic range proteinuria and stage IV chronic renal failure. 2. Bronchiectasis without exacerbation. 3. Anemia secondary to chronic blood loss. 4. Diabetes. 5. Hypertension. PLAN: 1. The patient will need dialysis access for eventual dialysis as an outpatient. 2. Continue CPAP at night. 3. Continue to monitor blood sugars and blood pressure. MD SIDRA Ortiz/VASQUEZ /[id number]
--- NOTE | 2018-09-24 18:40 | NUR ---
Patient requesting to speak to in regards to d/c planning for today. Paged
--- NOTE | 2018-09-24 19:00 | NUR ---
Report given to oncoming nurse of patient's status. Sitting on sofa. Family at bedside. NO s/s of acute distress noted.
--- NOTE | 2018-09-24 19:05 | NUR ---
speaking to patient about d/c plan. Per "page to get clearance to discharge then call me back"
--- NOTE | 2018-09-24 19:15 | NUR ---
Paged to notify of patient's status. Awaiting call back
--- NOTE | 2018-09-24 19:20 | NUR ---
Patient received lying in bed. Family at bedside. Patient had no complaints of pain. No signs of respiratory distress. Telemetry in place. IV on right forearm patent. Fall precautions implemented. Patient instructed to call for assistance when needed. Call light within reach.
[2018-09-24 20:21] VITALS: BP 142/69
--- NOTE | 2018-09-24 20:44 | NUR ---
Dr. Oneal paged about discharging patient. Dr. Banerjee (covering for Dr. Oneal) stated it was OK to discharge patient from his standpoint. Dr. Dawson Vernon notified. Discharge order received to discharge patient.
--- NOTE | 2018-09-24 21:20 | NUR ---
Patient given discharge instructions . Patient verbalized understanding. IV removed from right arm with tip intact. Patient transported via W/C to private auto. Patient in stable condition.
--- NOTE | 2018-09-25 06:06 | Discharge Summary ---
PRIMARY CARE DOCTOR: Dr. Jayashree Sanchez. FINAL DIAGNOSIS: Hypoglycemia with stage 5 chronic kidney disease due to diabetes. SECONDARY DIAGNOSES: 1. Chronic lung disease. 2. Hypertension. 3. Recent cataract surgeries. CONSULTANTS: 1. Dr. Guzman, benefit director. 2. Dr. Oneal, risk reduction counselor. 3. Dr. Samuel, vascular surgeon. PROCEDURE/STUDIES PERFORMED: None. HISTORY: Per H and P. HOSPITAL COURSE: The patient was asked to come in due to critically ill of hypocalcemia. This was repleted and it is better. Calcitriol was started. Tums was started as well. His parathyroid hormone is elevated; however, PTH intact is still pending. The patient was evaluated by risk reduction counselor and a decision was to put in an AV fistula. The patient was evaluated by Dr. Samuel. Initially this was going to be done; however, due to scheduling conflict, this cannot be done in a timely fashion. The patient will follow up with risk reduction counselor next week. The patient also has confirmed iron deficiency anemia. The patient received iron infusion. At the time of discharge, his hemoglobin is 7.1; however, the patient is asymptomatic. No evidence of bleeding, leaking clinically. His hemoglobin should improve in a week or so with iron infusion. The patient's blood pressure was uncontrolled. His Norvasc was switched to nifedipine extended release with good effect. CONDITION ON DISCHARGE: Improved. DISCHARGE MEDICATIONS: Please see medication reconciliation form. Yiching MD YE Hendrix/VASQUEZ /[id number] cc: [facility]
[2018-09-25] MEDS ORDERED: EPOETIN ALFA 10000 UNIT/ML VIAL SC SCH (09:00)
== END 2018-09-24 21:24 | disposition home or self-care (01) | DRG 640 ==
LOC: ER 15:02 → ERHOLD 17:13 → MED/SURG2 18:06
PROVIDERS: ADMIT Internal Medicine; ATTEND Internal Medicine
DX: E83.51 Hypocalcemia (principal); N18.6 End stage renal disease; I12.0 Hypertensive chronic kidney disease with stage 5 chronic kidney disease or end stage renal disease; E11.22 Type 2 diabetes mellitus with diabetic chronic kidney disease; Z99.2 Dependence on renal dialysis; E11.319 Type 2 diabetes mellitus with unspecified diabetic retinopathy without macular edema; Z79.4 Long term (current) use of insulin; E11.649 Type 2 diabetes mellitus with hypoglycemia without coma; D50.0 Iron deficiency anemia secondary to blood loss (chronic); J47.9 Bronchiectasis, uncomplicated; M10.9 Gout, unspecified
CPT/HCPCS: 36415; 71045; 80053; 81001; 81050; 82306; 82575; 82948; 83540; 83735; 83970; 84100; 84156; 84466; 85025; 85610; 85730; 86850; 86900; 93005; 94660; 99284; J0360; J0610; J1756; J7030; J7512

== ENCOUNTER 2018-12-12 19:15 | Inpatient (IN) | payer MEDICARE ==
[~2018-12-12] VITALS: Ht 172.7 cm; Wt 85.8 kg
[~2018-12-12 19:15] MED LIST changes: +ATORVASTATIN CA80 MG PO
[2018-12-12] MEDS ORDERED: ONDANSETRON HCL INJ 2MG/ML 2ML 2 MG/ML VIAL IV STA (20:13)
[2018-12-12] MEDS ORDERED: METOPROLOL TARTRATE INJ 1 MG/ML VIAL IV ONE (20:15)
[2018-12-12] MEDS ORDERED: FUROSEMIDE INJ 10 MG/ML 4 ML VIAL IV ONE (20:15)
[2018-12-12] MEDS ORDERED: METOPROLOL TARTRATE INJ 1 MG/ML VIAL ONE (20:21)
[2018-12-12] MEDS ORDERED: ONDANSETRON HCL INJ 2MG/ML 2ML 2 MG/ML VIAL ONE (20:22)
[2018-12-12] MEDS ORDERED: FUROSEMIDE INJ 10 MG/ML 4 ML VIAL ONE (20:22)
--- NOTE | 2018-12-12 20:40 | NUR ---
PT CONVERTED TO NSR AFTER METOPROLOL INJ; REPEAT EKG PERFORMED AND GIVEN TO ER MD
[2018-12-12 20:48] LABS: BASOPHILS % 0.1 % (0.0-1.0); EOSINOPHILS % 0.1 % (0.0-6.0); HEMATOCRIT 21.3 % (38.2-49.6); LYMPHOCYTES # (AUTO) 0.8 (1.0-3.2); LYMPHOCYTES % 5.4 % (18.0-39.1); MEAN CORPUSCULAR HEMOGLOBIN 26.6 pg (28-32); MEAN CORPUSCULAR HGB CONC 30.5 g/dL (31-35); MEAN CORPUSCULAR VOLUME 87.3 fL (81-99); MONOCYTES # (AUTO) 0.7 (0.2-0.8); NEUTROPHILS # (AUTO) 12.7 (2.1-6.9); NEUTROPHILS % 88.6 % (38.7-80.0); PLATELET COUNT 306 x10e3/uL (140-360); RED BLOOD COUNT 2.44 x10e6/uL (4.3-5.7); RED CELL DISTRIBUTION WIDTH 16.6 % (11.7-14.4)
[2018-12-12 21:01] LABS: HEMOGLOBIN 6.5 g/dL (14.0-18.0)
[2018-12-12 21:02] LABS: ALBUMIN 2.3 g/dL (3.5-5.0); ALBUMIN/GLOBULIN RATIO 0.6 (0.8-2.0); ANION GAP 23.1 mmol/L (8-16); CREATININE, SERUM 6.87 mg/dL (0.72-1.25); POTASSIUM 5.1 mmol/L (3.5-5.1)
[2018-12-12 21:09] LABS: CALCIUM 6.7 mg/dL (8.4-10.2)
[2018-12-12 21:13] LABS: CREATINE KINASE MB 2.8 ng/mL (0-5.0)
[2018-12-12 21:56] LABS: BILIRUBIN,URINE NEGATIVE (NEGATIVE); CLARITY,URINE CLEAR (CLEAR); COLOR,URINE YELLOW (YELLOW); KETONES,URINE NEGATIVE (NEGATIVE); LEUKOCYTE ESTERASE ,URINE NEGATIVE (NEGATIVE); NITRITE,URINE NEGATIVE (NEGATIVE); URINE UROBILINOGEN 0.2 mg/dL (0.2 - 1)
[2018-12-12 22:11] LABS: PROTEIN,URINE DIPSTICK 3+ (NEGATIVE)
[2018-12-12 22:12] LABS: AMORPHOUS SEDIMENT,URINE FEW (FEW); BACTERIA,URINE MODERATE /HPF; EPITHELIAL CELLS,URINE MODERATE /LPF; RBC,URINE 0-5 /HPF (0-5)
--- NOTE | 2018-12-12 22:16 | Diagnostic Imaging Report ---
EXAMINATION: CHEST SINGLE (PORTABLE) INDICATION: Short of breath COMPARISON: Chest radiograph 09/22/2018, 04/22/2018 FINDINGS: AP view TUBES and LINES: None. LUNGS/PLEURA: Lung volumes are adequate. Thickening of right minor fissure.. Diffuse increased pulmonary stitch lung markings. Blunted costophrenic sulci. Mild diffuse lung haziness. No pneumothorax. HEART AND MEDIASTINUM: The cardiomediastinal silhouette is mildly enlarged. BONES AND SOFT TISSUES: No acute osseous lesion. Soft tissues are unremarkable. UPPER ABDOMEN: No free air under the diaphragm. IMPRESSION: Mild cardiomegaly, pulmonary edema, and small bilateral pleural effusions. Increased lung markings can also be in part due to chronic lung disease. Signed by: Adan Tamez DO on 12/12/2018 10:13 PM
[2018-12-12] MEDS ORDERED: SODIUM CHLORIDE FLUSH 10 ML SYR INJ PRN (23:15)
[2018-12-12] MEDS ORDERED: DEXTROSE 50% SYRINGE 50 ML IV PRN (23:15)
[2018-12-12] MEDS: CEFTRIAXONE SOD 1 GM/NS 50 ML 50 ML IV SCH (23:20)
[2018-12-12 23:58] VITALS: BP 143/65
[2018-12-13] VITALS (8 sets, daily range): BP systolic 143–175; BP diastolic 59–83
[2018-12-13] MEDS ORDERED: INSULIN REGULAR, HUMAN 100 UNIT/1 ML 3ML VIAL SQ ONE
--- NOTE | 2018-12-13 | NUR ---
SPOKE WITH DR TARIQ REGUARDING PTS BG OF [id number] - NEW ORDERS FOR 12 SQ OF REGULAR INSULIN
[2018-12-13] MEDS ORDERED: NEVANAC3 ML OP (00:59)
[2018-12-13] MEDS ORDERED: PRED-G 1% EYE DR5 ML OP (00:59)
[2018-12-13] MEDS ORDERED: LATANOPROST 0.7.5 ML OP (00:59)
[2018-12-13] MEDS ORDERED: ARTIFICIAL TEAR15 ML OP (00:59)
[2018-12-13] MEDS ORDERED: BRIMONIDINE TAR10 ML OP (00:59)
[2018-12-13 05:32] LABS: BASOPHILS % 0.2 % (0.0-1.0); EOSINOPHILS # (AUTO) 0.1 (0.0-0.4); EOSINOPHILS % 0.8 % (0.0-6.0); LYMPHOCYTES # (AUTO) 1.6 (1.0-3.2); LYMPHOCYTES % 13.1 % (18.0-39.1); MEAN CORPUSCULAR HEMOGLOBIN 26.3 pg (28-32); MEAN CORPUSCULAR VOLUME 87.7 fL (81-99); MONOCYTES # (AUTO) 1.1 (0.2-0.8); MONOCYTES % 9.3 % (4.4-11.3); NEUTROPHILS # (AUTO) 9.2 (2.1-6.9); NEUTROPHILS % 75.8 % (38.7-80.0); PLATELET COUNT 253 x10e3/uL (140-360); RED BLOOD COUNT 2.28 x10e6/uL (4.3-5.7); RED CELL DISTRIBUTION WIDTH 16.4 % (11.7-14.4)
[2018-12-13 05:55] LABS: ALBUMIN 2.3 g/dL (3.5-5.0); ALBUMIN/GLOBULIN RATIO 0.7 (0.8-2.0); ANION GAP 21.7 mmol/L (8-16); CREATININE, SERUM 7.65 mg/dL (0.72-1.25); POTASSIUM 4.7 mmol/L (3.5-5.1)
[2018-12-13 05:56] LABS: CALCIUM 6.4 mg/dL (8.4-10.2)
--- NOTE | 2018-12-13 06:27 | NUR ---
Dr. Dent returned page at [phone] regarding critical lab values. notified of Hgb 6 and calcium 6.4 Orders received for additional labs, T&C/transfuse 2 PRBC, 1 gm calcium gluconate and 80 Lasix.
[2018-12-13] MEDS ORDERED: FUROSEMIDE INJ 10 MG/ML 4 ML VIAL IV ONE (06:50)
[2018-12-13] MEDS ORDERED: CALCIUM GLUCONATE 10% INJ 4.65 MEQ in SODIUM CHLORIDE 0.9% 50ML 50 ML IV ONE (08:00)
[2018-12-13 08:29] LABS: CALCIUM IONIZED 0.7 mmol/L (1.09-1.30)
--- NOTE | 2018-12-13 08:37 | NUR ---
Spoke with Dr Oneal. A tunnelled hemodialysis catheter is requested for ESRD.
[2018-12-13 08:38] LABS: PHOSPHORUS 5.9 MG/DL (2.3-4.7)
[2018-12-13] MEDS: INSULIN REGULAR, HUMAN 100 UNIT/1 ML 3ML VIAL SQ SCH ×4 (09:16→21:00)
[2018-12-13 10:21] LABS: INR 0.93
[2018-12-13 10:22] LABS: PARTIAL THROMBOPLASTIN TIME 26.6 seconds (23.8-35.5)
[2018-12-13] MEDS ORDERED: ARTIFICIAL TEARS (OPTH) 15 ML BTL OP PRN (10:30)
[2018-12-13] MEDS ORDERED: LACTULOSE SYRUP 20 GM/30 ML UDC PO PRN (11:00)
[2018-12-13] MEDS: FUROSEMIDE INJ 10 MG/ML 4 ML VIAL IV SCH ×2 (11:14→21:00)
[2018-12-13] MEDS ORDERED: SODIUM CHLORIDE 0.9% 250ML 250 ML ONE ×2 (11:14→15:30)
--- NOTE | 2018-12-13 13:36 | History and Physical ---
PRIMARY CARE PHYSICIAN: Dr. Jayashree Sanchez at [facility] in [place]. CHIEF COMPLAINT: Shortness of breath x5 days. HISTORY OF PRESENT ILLNESS: This is a 63-year-old male with past medical history of hypertension, high cholesterol, diabetes type 2, acute renal failure, rheumatoid arthritis, pulmonary fibrosis, gout, and glaucoma, presented to the ER with complaints of shortness of breath that started about 5 days ago. Reports increasing his O2 to 3 L via nasal cannula with no improvement. Last night, he started having dry cough with rhonchi, so he wanted to come to the ER for further evaluation for pneumonia. He was admitted in September, where he was admitted with hypocalcemia and CKD. At that time, he was going to have AV fistula placed, but due to conflict and scheduling, he did not have AV fistula put in or start dialysis. He has been following Dr. Dent at the clinic since September and upon arrival, his creatinine level is 6.87 and BUN 74 with calcium of 6.7. The patient is admitted in the ICU for close monitoring and placed on BiPAP to help with acute respiratory distress. PAST MEDICAL HISTORY: 1. Hypertension. 2. High cholesterol. 3. CKD. 4. Pulmonary fibrosis. 5. Rheumatoid arthritis. 6. Gout. 7. Glaucoma. 8. Diabetes type 2. PAST SURGICAL HISTORY: 1. He had eye surgery, cataract to both eyes. 2. Bronchoscopy. FAMILY MEDICAL HISTORY: Mother has diabetes, unknown of father's medical problems. SOCIAL HISTORY: He quit smoking in January 2018. He also quit alcohol use in January 2018. He denies any drug use. He is a retired . ALLERGIES: HE IS ALLERGIC TO PENICILLIN. REVIEW OF SYSTEMS: GENERAL: Fatigue. HEENT: No mouth trauma or head trauma. LUNGS: Shortness of breath and dry cough. CARDIOVASCULAR: No chest pain or palpitations. GI: No nausea or vomiting. NEURO: No focal weakness. MUSCULOSKELETAL: Bilateral lower extremity swelling. SKIN: Dry. No rash. PHYSICAL EXAMINATION: VITAL SIGNS: Temperature 98.0, pulse is 93, respirations 28, blood pressure 159/75, and pulse ox 92% on BiPAP. GENERAL: Fatigued, but otherwise resting with no acute distress. HEENT: Atraumatic and normocephalic. NECK: Supple. LUNGS: Decreased breath sounds, on BiPAP. CARDIOVASCULAR: Regular rate and rhythm. GI: Soft and nontender. NEUROLOGIC: Alert, awake, and oriented x3. MUSCULOSKELETAL: Moves all extremities. Bilateral lower extremity edema 2+. SKIN: Dry and intact. PSYCH: Calm. LABORATORY DATA: WBC 12.18, hemoglobin is 6.0, hematocrit is 20.0, and platelet is 253. Sodium is 145, potassium is 4.7, chloride 96, carbon dioxide 32, creatinine is 7.65, BUN is 85, glucose is 247, calcium is 6.4, ionized calcium is 0.7, and phosphorus is 5.9. AST 40 and ALT 48. BNP is 734. PT is 13, INR is 0.93, and APTT is 26.6. UA; negative leukocyte esterase, 6 to 10 wbc's and moderate bacteria. IMAGING DATA: Chest x-ray showed mild cardiomegaly, pulmonary edema and small bilateral pleural effusion, increased lung markings due to chronic lung disease. IMPRESSION AND PLAN: 1. Acute respiratory distress due to pulmonary edema. He was given Lasix. Placed on BiPAP. Monitored in ICU. Nephrology has been consulted for dialysis. 2. Acute anemia with hemoglobin of 6.4. Two units of PRBCs ordered and we will transfuse and monitor closely. 3. Acute renal failure. Creatinine is 7.65. Nephrology has been consulted. IR to place a tunneled catheter for initiation of dialysis. 4. Hypocalcemia. Chronic calcium this morning is 6.4, was given calcium gluconate. We will repeat labs in a.m. 5. Hypertension. We will resume home dose of Norvasc. 6. Diabetes, sliding scale insulin with insulin coverage. 7. History of pulmonary fibrosis. He is oxygen-dependent at home. We will continue with BiPAP for now until his acute respiratory distress improves. 8. History of rheumatoid arthritis. Pain management as needed. 9. History of gout. We will continue with allopurinol. 10. Glaucoma. We will continue with his eyedrops. 11. Leukocytosis. WBC 12.18, likely reactive. We will continue with Rocephin empirically. He is afebrile and no other symptoms to indicate infection. 12. Deep vein thrombosis prophylaxis. No chemical anticoagulation due to severe anemia. PLAN: We will continue to monitor closely in the ICU. We will administer 2 units of PRBCs, calcium gluconate given, we will resume his home medication and HD plan per Nephrology. Dictated by Madison Gaming, ANP MD CHELO Lincoln/VASQUEZ /[id number]
--- NOTE | 2018-12-13 14:00 | NUR ---
PATIENT TRANSFERRED FROM ICU TO ROOM, 198, PATIENT IS ALERT AND ORIENTED X4 PLACED ON BI-PAP. AWAITING FOR HEMODIALYSIS CATHETER PLACEMENT. ORIENTED TO ROOM, AND USE OF CALL LIGHT, AT BEDSIDE. BELONGINGS AND CALL LIGHT WITHIN REACH WILL CONTINUE TO MONITOR.
--- NOTE | 2018-12-13 14:40 | NUR ---
CALLED DR. ELVIS WOODWARD, MADE AWARE PATIENT COMPLETED THE FIRST UNIT OF BLOOD TRANSFUSION, MADE AWARE PATIENT WILL GO IR FOR HEMODIALYSES TUNNEL CATHETER. RECEIVED ORDERS TO NOT TO GIVE 2ND FOR NOW WILL GIVE WITH HEMODIALYSIS.
[2018-12-13] MEDS ORDERED: LIDOCAINE HCL 1% LOCAL INJ 20 ML VIAL ONE (15:30)
--- NOTE | 2018-12-13 15:33 | NUR ---
MD WOODWARD INTO SEE PT
--- NOTE | 2018-12-13 15:35 | NUR ---
Called [facility], made aware patient needs stat HD, social secretary says that stat order begins once HD is in place.
[2018-12-13] MEDS ORDERED: CALCIUM GLUCONATE 10% INJ 4.65 MEQ in SODIUM CHLORIDE 0.9% 100 ML IV ONE ×2 (16:00→22:00)
--- NOTE | 2018-12-13 16:00 | NUR ---
CALCIUM GLUCONATE TIME CHANGED PATIENT OFF THE UNIT FOR HEMODIALYSIS TUNNEL CATHETER. CALLED [facility] FOR STAT HEMODIALYSIS. WAITING FOR HD NURSE TO CALL BACK ON ETA.
[2018-12-13] MEDS ORDERED: HEPARIN SOD (PORCINE) 1000 UNIT/ML 30ML ONE (16:03)
[2018-12-13] MEDS: DOCUSATE SODIUM 100 MG CAP PO SCH (17:00)
--- NOTE | 2018-12-13 17:27 | Diagnostic Imaging Report ---
PROCEDURE: Tunneled dialysis catheter placement Procedural Personnel Attending physician(s): Marvin Kelly MD Fellow physician(s): None Resident physician(s): None Advanced practice provider(s): None Pre-procedure diagnosis: Acute kidney injury Post-procedure diagnosis: Same Indication (QCDR): Performance of hemodialysis Additional clinical history: None Complications: No immediate complications. IMPRESSION: Insertion of right-sided tunneled dialysis catheter, with tip in the expected location of the superior right atrium. Plan: The catheter may be used immediately. PROCEDURE SUMMARY: - Venous access with ultrasound guidance - Tunneled dialysis catheter insertion with fluoroscopic guidance - Additional procedure(s): None PROCEDURE DETAILS: Pre-procedure Consent: Informed consent for the procedure including risks, benefits and alternatives was obtained and time-out was performed prior to the procedure. Preparation (MIPS): The site was prepared and draped using all elements of maximal sterile barrier technique including sterile gloves, sterile gown, cap, mask, large sterile sheet, sterile ultrasound probe cover, hand hygiene and cutaneous antisepsis with 2% chlorhexidine. Medical reason for site preparation exception (MIPS): Not applicable Anesthesia/sedation Level of anesthesia/sedation: No sedation Access Local anesthesia was administered. The vessel was sonographically evaluated and determined to be patent. Real time ultrasound was used to visualize needle entry into the vessel and a permanent image was stored. Vein accessed (QCDR): Internal jugular vein Internal jugular vein patency (QCDR): Patent or otherwise accessible on at least one side Access technique: Micropuncture set with 21 gauge needle Catheter placement An incision was made near the venous access site and the catheter was tunneled subcutaneously to the venous access site. The catheter was advanced via a peel-away sheath into the vein under fluoroscopic guidance. Catheter tip location was fluoroscopically verified and a permanent image was stored. Catheter placed: HemoSplit Catheter cuff-to-tip length (cm): 23 Catheter flush: Heparin (1000 units/mL) Closure A sterile dressing was applied. Access site closure technique: Tissue adhesive Catheter securement technique: Non-absorbable suture Contrast Contrast agent: None Radiation Dose Fluoroscopy time (minutes): 0.3 Reference air kerma (mGy): 2.8 Additional Details Additional description of procedure: None Equipment details: None Specimens removed: None Estimated blood loss (mL): Less than 10 Standardized report: [email or web address] Attestation Signer name: Marvin Kelly MD I attest that I was present for the entire procedure. I reviewed the stored images and agree with the report as written. Signed by: Marvin Kelly MD on 12/13/2018 5:23 PM
--- NOTE | 2018-12-13 17:35 | NUR ---
Called [facility] for STAT HD spoke with Lina to refer me to the broadcast field supervisor, to give me a call. HD nurse will not be here until 7pm. I had called approximately at 3:30 pm, and [facility] answering service refused to take the STAT order for hemodialysis because patient did not have an active HD catheter. I further informed [facility] that Dr. Oneal's order is for stat hand he wanted the dialysis nurse to be here when patient was out of procedure, [facility] litigation legal secretary refused to get order.
--- NOTE | 2018-12-13 19:19 | NUR ---
REPORTS RECEIVED, PATIENT IS ABOUT TO HAVE DIALYSIS, HE WILL RECEIVE 1 PRBC WHILE HAVING DIALYSIS, ALSO PER REPORTS CALCIUM GLUCONATE HAS NOT BEEN GIVEN, IT WILL BE GIVEN AFTER DIALYSIS. ALSO NURSE JUST CALLED AND SPOKE WITH DR TARIQ'S AMBULANCE ATTENDANT, OBTAINING ZOFRAN AND NORCO ORDERS, SINCE PATIENT IS COMPLAINING OF NAUSEA AND LOWER BACK PAIN. ORDER CARRIED OUT.
[2018-12-13] MEDS ORDERED: SODIUM CHLORIDE 0.9% 1000ML 2,000 ML ONE ×2 (19:20→19:22)
--- NOTE | 2018-12-13 19:20 | NUR ---
HANDOFF REPORT TO ONCOMING NURSE MADE AWARE BLOOD NEEDS TO BE GIVEN WITH HEMODIALYSIS, AND CALCIUM GLUCONATE NOT GIVEN AT 1600 DUE TO PATIENT BEING OFF UNIT FOR HEMODIALYSIS CATHETER PLACEMENT. CALCIUM CHANGED TO 22:00 PM.
[2018-12-13] MEDS ORDERED: HEPARIN SOD (PORCINE) 1000 UNIT/ML SDV IV PRN (19:30)
[2018-12-13] MEDS ORDERED: SODIUM CHLORIDE 0.9% 1000ML 2,000 ML IV PRN (19:30)
[2018-12-13] MEDS ORDERED: SODIUM CHLORIDE 0.9% 250ML 500 ML IV PRN (19:30)
[2018-12-13] MEDS ORDERED: MANNITOL 25% 12.5GM/50 ML VIAL IV PRN (19:30)
[2018-12-13] MEDS: ONDANSETRON HCL INJ 2MG/ML 2ML 2 MG/ML VIAL IV PRN (20:15)
--- NOTE | 2018-12-13 20:58 | NUR ---
PATIENT JUST STARTED ON DIALYSIS, ALSO BLOOD TRANSFUSION IS STATED WHILE DIALYSIS. VERIFIED BLOOD WITH DIALYSIS NURSE IN THE ROOM. FAMILY ON BED SIDE, WILL CONTINUE TO MONITOR.
[2018-12-13] MEDS ORDERED: AMLODIPINE BESYLATE 5 MG TAB PO SCH (21:00)
[2018-12-13] MEDS: ATORVASTATIN 40 MG TAB PO SCH (21:00)
[2018-12-13 21:49] LABS: % IRON SATURATION 8 % (15-50); IRON 27 ug/dL (65-175); TOTAL IRON BINDING CAPACITY 347 ug/dL (261-478); TRANSFERRIN 248 mg/dL (174-364)
--- NOTE | 2018-12-13 22:02 | NUR ---
PATIENT HAD EPISODES OF IRREGULAR HEART RATE WHILE DOING THE DIALYSIS, THE DIALYSIS NURSE NOTIFIED DR WOODWARD, ORDER TO CONTINUE DIALYSIS. FAMILY ON BED SIDE.
--- NOTE | 2018-12-13 23:11 | Consultation ---
DATE OF CONSULTATION: 12/13/2018 HISTORY OF PRESENT ILLNESS: Mr. Yves Joseph is known to me, he has underlying history of advanced kidney failure secondary to diabetes and diabetic kidney disease. Presented with shortness of breath, congestive heart failure, and pulmonary edema with worsening kidney function. He has also noticed increasing abdominal girth as well as swelling bilateral lower extremities. by bedside. He is currently on BiPAP. ALLERGIES: HE IS ALLERGIC TO PENICILLIN. CURRENT MEDICATIONS: Include: 1. Ceftriaxone 1 g IV daily. 2. 50 mg daily. 3. Amlodipine 5 mg at bedtime. 4. Atorvastatin 80 mg at bedtime. 5. Colace p.r.n. 6. He is currently receiving Lasix 80 mg IV q.12 hours. 7. He is on insulin. SOCIAL HISTORY: Does not smoke or drink. FAMILY HISTORY: Significant for diabetes. LABORATORY DATA: Show hemoglobin of 6, white count 12.8 with a sodium 145, bicarb 32 with a creatinine 7.65, calcium 6.4, and ionized calcium 0.7 with a phosphorus 5.9, and BNP 734. Albumin of 2.3. PHYSICAL EXAMINATION: GENERAL: Awake, alert, and oriented x3. Currently on BiPAP. No apparent distress. VITAL SIGNS: Blood pressure 154/59, pulse rate 94, afebrile, oxygen saturation 92% on BiPAP. HEAD AND NECK: Cornea clear. Mucosa moist. Neck veins distended. LUNGS: Bibasilar rales. HEART: S1, S2 audible. Questionable S3 gallop. ABDOMEN: Otherwise soft, nontender. No apparent visceromegaly. Flanks full. 1+ flank edema noted. EXTREMITIES: Lower extremity examination showing 2+ edema, symmetrically bilateral. IMPRESSION AND PLAN: 1. Advanced kidney failure, now end-stage renal disease, fluid overload, pulmonary edema. 2. Anemia, must rule out GI bleed. I will obtain iron profile 1 unit packed RBC has been given and will give the 2nd unit on dialysis. 3. Hypocalcemic with all the stigmata of underlying advanced kidney disease. Plan on giving calcium gluconate x1 1 g. Obtain intact PTH. Stat dialysis as soon as hemodialysis catheter is placed. The patient and agree with initiation of dialysis. Discussed with Interventional Radiology. Dialysis nurse on standby and also will obtain vitamin D levels. Defer anemia workup to primary care physician. Please see orders. MD JIM Smith/VASQUEZ /[id number]
[2018-12-13] MEDS: HYDROCODONE/APAP 5MG-325MG TAB PO PRN (23:21)
[2018-12-14] VITALS (17 sets, daily range): BP systolic 134–177; BP diastolic 57–87
[2018-12-14] MEDS: CEFTRIAXONE SOD 1 GM/NS 50 ML 50 ML IV SCH (00:25)
[2018-12-14] MEDS: ONDANSETRON HCL INJ 2MG/ML 2ML 2 MG/ML VIAL IV PRN (04:22)
--- NOTE | 2018-12-14 04:44 | NUR ---
inserted a new iv line to right forearm size 20 g. the old iv line was infiltrated.
[2018-12-14 06:24] LABS: BASOPHILS % 0.4 % (0.0-1.0); EOSINOPHILS # (AUTO) 0.3 (0.0-0.4); EOSINOPHILS % 2.4 % (0.0-6.0); HEMATOCRIT 27.6 % (38.2-49.6); HEMOGLOBIN 8.6 g/dL (14.0-18.0); LYMPHOCYTES # (AUTO) 1.1 (1.0-3.2); MEAN CORPUSCULAR HGB CONC 31.2 g/dL (31-35); MEAN CORPUSCULAR VOLUME 86.8 fL (81-99); MONOCYTES # (AUTO) 0.9 (0.2-0.8); MONOCYTES % 8.5 % (4.4-11.3); NEUTROPHILS # (AUTO) 8.2 (2.1-6.9); PLATELET COUNT 238 x10e3/uL (140-360); RED BLOOD COUNT 3.18 x10e6/uL (4.3-5.7)
--- NOTE | 2018-12-14 06:51 | NUR ---
CALLED AND SPOKE WITH DR TARIQ, MAKE HIM AWARE THAT PATIENT HAS BEEN HAVING IRREGULAR HR, AFIB-SR ON AND OFF. THE MD WILL TAKE A LOOK LATER. NO ODDER OBTAINED AT THIS TIME.
[2018-12-14 06:53] LABS: ALBUMIN 2.3 g/dL (3.5-5.0); ALBUMIN/GLOBULIN RATIO 0.6 (0.8-2.0); ANION GAP 17.8 mmol/L (8-16); CALCIUM 7.2 mg/dL (8.4-10.2); CREATININE, SERUM 5.92 mg/dL (0.72-1.25); POTASSIUM 3.8 mmol/L (3.5-5.1)
--- NOTE | 2018-12-14 08:05 | NUR ---
notified Dr. Olson of 15 sec run of VT reported by director television. rec'd orders for stat EKG, check on echo. notify of results.
--- NOTE | 2018-12-14 08:06 | NUR ---
rec'd orders for phenergan for nausea and to discuss possible admin of magnesium. continue to monitor
--- NOTE | 2018-12-14 08:10 | NUR ---
ASSESSMENT: Tower Hand responded to Rapid. Pt's and son in hallway. Pt's thankful for hospital and staff. Pt's processing 's "new issues." Pt's states they identify as [employer]. Intervention: Provided calming presence. Provided information on availability of deckhand fishing vessel. Outcome: Will follow as able. LUISITO [facility] Spiritual Care Department O: [phone] Pager: [phone] ([phone] number calling from)
--- NOTE | 2018-12-14 08:10 | NUR ---
pt w/approx 2 min run of arrhythmias. rapid response for HR in 190's. rec'd orders from ER , will notify Dr. Olson for further orders. will continue to monitor
[2018-12-14] MEDS ORDERED: PROMETHAZINE 12.5MG/ NACL 0.9% 12.5 MG/50 ML BAG IV PRN (08:15)
[2018-12-14] MEDS: METOPROLOL TARTRATE INJ 1 MG/ML VIAL IV SCH ×2 (08:40→09:00)
[2018-12-14] MEDS ORDERED: METOPROLOL TARTRATE 50 MG TAB PO SCH ×2 (09:00→21:00)
[2018-12-14] MEDS: ALLOPURINOL 100 MG TAB PO SCH (09:00)
[2018-12-14] MEDS: DOCUSATE SODIUM 100 MG CAP PO SCH ×2 (09:00→17:30)
[2018-12-14] MEDS: FUROSEMIDE INJ 10 MG/ML 4 ML VIAL IV SCH ×2 (09:18→20:12)
[2018-12-14] MEDS: INSULIN REGULAR, HUMAN 100 UNIT/1 ML 3ML VIAL SQ SCH ×4 (09:28→20:13)
--- NOTE | 2018-12-14 09:30 | NUR ---
Dr. Olson on unit to patel pt. rec'd new orders. orders placed w/Dr. Olson assist. will transfer pt to ICU, pharmacy notified for medications. pt c/o of 4/10 chest discomfort. Report given to ICU nurse Pablo PULIDO. will continue to monitor
[2018-12-14] MEDS ORDERED: AMIODARONE HCL 900 MG in DEXTROSE 5% 500ML 500 ML IV STA (09:37)
[2018-12-14] MEDS ORDERED: AMIODARONE HCL 150 MG/100 ML BAG IV ONE (09:45)
[2018-12-14] MEDS ORDERED: MAGNESIUM SULFATE 2GM/50ML 50 ML IV ONE (10:30)
[2018-12-14] MEDS ORDERED: AMIODARONE HCL 150 MG in DEXTROSE 5% 100ML 100 ML IV SCH (10:30)
[2018-12-14 10:40] LABS: CREATINE KINASE MB 2.1 ng/mL (0-5.0)
[2018-12-14] MEDS ORDERED: ASPIRIN 81 MG CHEW TAB PO ONE (10:45)
--- NOTE | 2018-12-14 10:48 | Diagnostic Imaging Report ---
EXAMINATION: CHEST SINGLE (PORTABLE) INDICATION: Line placement COMPARISON: Chest are graft of 12/12/2018, line placement of 12/13/2018 FINDINGS: LINES/TUBES:Right IJ tunneled hemodialysis catheter terminates at the superior right atrium. EKG leads overlie the chest. LUNGS:The lung volumes are low. There is perihilar fullness and indistinctness of the pulmonary vasculature. PLEURA:No pleural effusion or pneumothorax. MEDIASTINUM:Cardiomediastinal silhouette is stably enlarged. BONES/SOFT TISSUES:No acute osseous injury. ABDOMEN:No free air under the diaphragm. IMPRESSION: Right IJ tunneled hemodialysis catheter terminates at the superior right atrium, in good position. Low lung volumes with cardiomegaly and pulmonary edema. Signed by: Marvin Kelly MD on 12/14/2018 10:45 AM
[2018-12-14] MEDS: AMIODARONE HCL 900 MG in DEXTROSE 5 % 500ML BOTTLE 500 ML IV SCH (11:45)
--- NOTE | 2018-12-14 12:21 | NUR ---
Holding PT evaluation since patient is moved to higher level of care ( from IMCU to ICU). will need new PT orders when appropriate. Thank you Addendum: 12/14/18 at 1223 by Nader wharton PT Amended: Links added.
--- NOTE | 2018-12-14 13:29 | NUR ---
SPOKE WITH PT AND ABOUT DIALYSIS ORDER, THEY LIVE IN [place] AND SIGNED CHOICE FOR [facility], WOULD LIKE A Thursday AND THURSDAY EARLY SCHEDULE. WILL FAX CLINICALS, PER NURSE ON FLOOR THE WILL SEE IF DIALYSIS PORT NEEDS TO BE CHANGED.
--- NOTE | 2018-12-14 17:44 | Progress Note ---
DATE: 12/14/2018 CONSULTANTS: Dr. Oneal with Nephrology and Dr. Olson with Cardiology. CHIEF COMPLAINT: Shortness of breath. SUBJECTIVE: The patient is back in the ICU due to arrhythmias during the night, rapid was called and monitored on tele. A 12-lead EKG showed V-tach for [address] Olson has been consulted. The patient has been started on amiodarone, transferred to ICU for close monitoring. The patient reports chest pain was for a few minutes early this morning and last night. Currently, he denies any pain, shortness of breath, fever, or chills. PHYSICAL EXAMINATION: VITAL SIGNS: Temperature is 98.8, pulse is 77, respirations 16, blood pressure 177/87, pulse oximeter 98% on 2 L of oxygen. GENERAL: No acute distress. HEENT: Normocephalic, atraumatic. NECK: Supple and midline. CARDIOVASCULAR: No chest pain. Bilateral lower extremity edema noted. LUNGS: Decreased breath sounds. ABDOMEN: Soft and nontender, obese. NEUROLOGIC: Alert, awake, oriented x3. MUSCULOSKELETAL: Moves all extremities. 2+ edema noted in bilateral lower extremities. SKIN: Dry and intact. LABORATORY DATA: WBC 10.5, hemoglobin is 8.6, hematocrit is 27.6, and platelet is 238. Sodium is 141, potassium is 3.81, BUN is 55, creatinine is 5.92. Estimated GFR is 10. Magnesium is 1.6. Troponin this morning is 0.676. Creatine kinase is 737. IMAGING: Chest x-ray showed right IJ tunneled hemodialysis catheter and low lung volumes with cardiomegaly and pulmonary edema. IMPRESSION AND PLAN: 1. Acute respiratory distress due to pulmonary edema. Lasix is being given, O2 via nasal cannula. Tunneled catheter placed yesterday and dialysis initiated yesterday per Nephrology. 2. Anemia with hemoglobin of 6.4. Status post transfusion. Hemoglobin is improved to 8.6. 3. Chest pain with runs of atrial fibrillation. The patient is started on amiodarone is normal sinus rhythm. Continue to monitor on tele. Troponin this morning was up to 0.676. Cardiology has been consulted and plans heart cath soon. 4. Acute renal failure with history of kidney disease. Creatinine is improved postdialysis. This morning, creatinine is 5.92. We will defer to stone polisher hand. 5. Hypocalcemia, replaced. 6. Hypertension. We will resume home medications Norvasc and add hydralazine IV p.r.n. 7. Diabetes. We will continue to check insulin and cover with sliding scale insulin. 8. History of pulmonary fibrosis. He is oxygen dependent. We will continue O2 2 L via nasal cannula. 9. History of rheumatoid arthritis. Pain management with hydrocodone as needed. 10. History of gout. We will continue allopurinol. 11. History of glaucoma. We will continue with eye drops. 12. Leukocytosis is improved. 13. Deep vein thrombosis prophylaxis. No chemical anticoagulation due to severe anemia. Plan is to continue close monitoring in ICU. Continue amiodarone drip and Lasix 80 mg IV q.12h. Dialysis per Nephrology. Dictated by ROB Danielson Gabe Vernon MD MY/MODL /[id number] Seen and examined on 12/14/2018. Agree with the findings and plan as documented by ROB Gaming. MTDD
--- NOTE | 2018-12-14 17:45 | NUR ---
Notified [facility] that the patient will need dialysis tomorrow morning.
[2018-12-14 17:48] LABS: CREATINE KINASE MB 2.1 ng/mL (0-5.0)
--- NOTE | 2018-12-14 19:00 | NUR ---
Bedside report received from Linda Block RN and Pablo Sheridan RN. Pt received AAOx4 sitting up in med on 2L n/c no distress noted at this time, pt reports no pain or discomfort at this time. Multiple pt family members present. VSS to pt. Per Linda Block RN the amiodarone gtt is to remain continuous per 's order. Call light in reach of the pt, bed in lowest and locked position.
[2018-12-14] MEDS: ATORVASTATIN 40 MG TAB PO SCH (20:12)
[2018-12-14] MEDS: METOPROLOL TARTRATE 50 MG TAB PO SCH (20:13)
--- NOTE | 2018-12-14 20:45 | NUR ---
Dr. Matute present and assessing/rounding on the pt. (He is covering for Dr. Mimi Guzman). New order received from AM chest xray and heparin SC for DVT prevention.
[2018-12-14] MEDS: HEPARIN SOD (PORCINE) 5,000 UNIT/ML VIAL SC SCH (21:33)
--- NOTE | 2018-12-14 22:24 | NUR ---
Pt placed on bipap at this time per his request.
[2018-12-15] VITALS (25 sets, daily range): BP systolic 144–180; BP diastolic 62–97
--- NOTE | 2018-12-15 02:06 | NUR ---
I was not present for HD on 12/13, only making notation in electronic chart for referencing purposes, please refer to paper chart for [facility] HD on 12/13/2018 at 2245 location under procedures tab for further information. Also added amount removed to I&O for the same day as well for referencing purposes in the electronic record. Addendum: 12/15/18 at 0208 by Larisa Shah RN Amended: Links added.
[2018-12-15] MEDS: AMIODARONE HCL 900 MG in DEXTROSE 5 % 500ML BOTTLE 500 ML IV SCH ×2 (02:22→18:04)
--- NOTE | 2018-12-15 02:37 | Consultation ---
DATE OF CONSULTATION: 12/14/2018 Cardiology Consultation. REFERRING PHYSICIAN: Gabe Vernon MD CONSULTING PHYSICIAN: Ashu Donaldson MD, Interventional Cardiology. REASON FOR CONSULTATION: Cardiac arrhythmia. HISTORY OF PRESENT ILLNESS: Mr. Joseph is a 63-year-old man with a history of rheumatoid arthritis, pulmonary fibrosis, hypertension, and dyslipidemia, type 2 diabetes mellitus, gout, glaucoma, and CKD, former smoker, who presents with acute renal failure and acute heart failure. He is noted to have severe anemia, hemoglobin of 6 now status post PRBC transfusions at elevated white count and was started on dialysis with improvement and shortness of breath. Today, he is noted to have an intermittent episodes of atrial fibrillation with rapid ventricular response and episodes of nonsustained ventricular tachycardia. This is in the setting of electrolyte derangements with magnesium persistently low. The patient has noted episodes of palpitations and mild chest discomfort and shortness of breath, at the time of arrhythmia events. He is being transferred to the intensive care unit for further care. Amiodarone has been initiated IV and metoprolol uptitrated. Aspirin also was given and serial cardiac biomarkers are being trended. His echocardiogram was reviewed and is remarkable for moderate global impairment left ventricular systolic function with LVEF 35% - 40%. He currently denies any chest pain. REVIEW OF SYSTEMS: A 12-system review is negative except for as noted above. PAST MEDICAL HISTORY: As per HPI. SOCIAL HISTORY: Former smoker and alcohol use. No drugs. FAMILY HISTORY: Noncontributory. PHYSICAL EXAMINATION: VITAL SIGNS: Temperature 98.6, heart rate 108, blood pressure 172/75, respiratory rate 20, O2 saturation 99%. GENERAL: In no acute distress, alert. NECK: JVD positive. CHEST: Decreased breath sounds in bilateral bases. CARDIOVASCULAR: Regular rate and rhythm. Normal S1, S2. Systolic ejection murmur 1/6. No S3 or S4. ABDOMEN: Soft, nontender. Bowel sounds positive. EXTREMITIES: Trace edema. CARDIOVASCULAR MEDICATION: Reviewed. Atorvastatin 80 mg at bedtime, metoprolol tartrate 25 mg every 12 hours, and amlodipine 5 mg at bedtime. STUDIES: Reviewed. Creatinine 5.9, potassium 3.8, bicarbonate 29. White blood cells 10.5, hemoglobin 8.6 up from 6, platelets 238. AST 18, ALT 38. ASSESSMENT AND PLAN: 1. A 63-year-old man presents with acute heart failure, systolic. 2. Acute renal failure requiring dialysis and progression of chronic kidney disease likely, end-stage renal disease. We will discuss further with Nephrology. 3. Pulmonary fibrosis. 4. Rheumatoid arthritis. 5. Hypertension. 6. Dyslipidemia. 7. Diabetes. 8. History of gout. 9. Anemia status post PRBC transfusion. 10. Former smoker. 11. Paroxysmal atrial fibrillation and nonsustained ventricular tachycardia in the setting off electrolyte and metabolic derangements associated to renal failure. Recommend transfer to ICU. 12. Amiodarone intravenous. 13. Up-titrate metoprolol to 50 q.12h. 14. Continue aspirin and statin. 15. Continue rest of cardiovascular medications. 16. Keep telemetry on. 17. Replete magnesium. 18. We will discuss with patient once more, stable from a metabolic electrolyte standpoint and electrical standpoint coronary evaluation. 19. Overall guarded prognosis. MD SID Mcclure/VASQUEZ /[id number]
--- NOTE | 2018-12-15 03:17 | Consultation ---
DATE OF CONSULTATION: 12/14/2018 Pulmonary Critical Care Consultation Patient location, [facility]. HISTORY OF PRESENT ILLNESS: Mr. Joseph is a 63-year-old man with multiple medical problems including rheumatoid arthritis and rheumatoid lung, diabetes mellitus, chronic hypoxemic respiratory failure, diabetes with diabetic nephropathy and proteinuria and chronic kidney disease, who began about 9 to 11 days ago with increasing shortness of breath, increasing swelling, and orthopnea. Apparently, he had gained about 25 to 30 pounds, had increased abdominal girth, and was not getting any relief of his shortness of breath with turning his oxygen up to 5 L at home, so decided to present to the emergency room. He was found to be in respiratory distress with decline in his renal function, treated with BiPAP, admitted to the intensive care unit. He subsequently had a tunneled right IJ catheter placed, had dialysis with 2.25 L removed and some symptomatic improvement. The patient was in the intermediate care unit and developed ventricular tachycardia, was started on Cordarone drip and transferred to the ICU. Hence, Pulmonary Critical Care consultation. At this time, he is feeling a lot better. He still has some dyspnea with exertion. He is able to lay more flat. He feels less swollen. PAST MEDICAL HISTORY: 1. Again pulmonary fibrosis/interstitial lung disease secondary to rheumatoid arthritis, who has been on prednisone. 2. 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 3. Gout. 4. Diabetes mellitus, complicated by diabetic nephropathy. 5. Hypertension. 6. Hypercholesterolemia. 7. Gout. 8. Glaucoma. 9. Blindness. PAST SURGICAL HISTORY: Cataract surgery bilaterally, and bronchoscopy. SOCIAL HISTORY: He is an ex-smoker. He is a , gets significant care at the [place]. He used to drink alcohol. There is no history of drug use. FAMILY HISTORY: Notable for diabetes in his mom. REVIEW OF SYSTEMS: Negative except as described above. PHYSICAL EXAMINATION: VITAL SIGNS: At this time, his temperature is 97.9, his heart rate is 65. It appears to be sinus rhythm on the athletic monitor. Saturation with to 2 to 2.5 L nasal cannula is 98%. He is breathing 16 times a minute. Blood pressure is 156/78. HEAD: Normocephalic and atraumatic. His mucous membranes are moist. There are no lesions. Dentition is fair. NECK: Short and thick. I cannot appreciate any jugular venous distention. CHEST: Has symmetric expansion. There is a tunneled right IJ catheter in place. On auscultation, he has some scattered crackles bilaterally. They are not consistent with Velcro rales of ILD. HEART: Regular rate and rhythm. I do not hear murmurs, rubs, or gallops. ABDOMEN: Obese, soft, nontender, and nondistended. No organomegaly. EXTREMITIES: Have 3+ edema. He does have some hyperpigmentation. NEUROLOGIC: Awake, alert, and nonfocal. LABORATORY DATA: At admission his white count was 14,000, hemoglobin and hematocrit were 6.5 and 21. He is now up to 8.6 and 27. His white count is down to 10. Platelet count 306,000. Coags were unremarkable. Chemistries were notable for a troponin peak of 0.67. Albumin is 2.3. Creatinine is 5.92. Today, it was 6.87 on the 3rd and 7.65 on the 4th toe. I presume that was predialysis. His serum bicarb levels for a 29 to 32 range. He has not been hyperkalemic. IMAGING: Imaging was reviewed including a CT scan done in the spring that was consistent with interstitial pneumonia. His presenting chest x-ray here on the 3rd showed cardiomegaly, bilateral pulmonary edema changes and blunting of the costophrenic angles consistent with effusions. His x-ray today shows the right IJ and looks a little bit better. There is still cardiomegaly and pulmonary edema as well. He had a positive rheumatoid factor previously with negative ANCAs. ASSESSMENT: 1. Cfgnc-qc-[id number] hypoxemic respiratory failure. 2. Pulmonary edema, acute. 3. Chronic kidney disease, stage 5 with volume excess. 4. Interstitial lung disease secondary to rheumatoid arthritis. 5. Ventricular tachycardia. 6. Diabetes mellitus with nephropathy. 7. History of nicotine dependence in remission. 8. Anemia, likely secondary to chronic disease. PLAN: 1. He will be kept in the ICU, he will be monitored and continued on his amiodarone drip. 2. Oxygen. Keep the saturations in the mid 90s. We can use BiPAP as needed, although he looks more comfortable at this time. 3. Hemodialysis ultrafiltration for volume control per renal. 4. Continue Cordarone. EP consultation requested. [facility] to evaluate for ischemia per cardiology. 5. DVT prophylaxis with subcutaneous heparin twice a day. Further recommendations pending clinical course. We will also consider once he is more euvolemic. Repeat chest imaging to evaluate the pulmonary fibrosis/ILD related to rheumatoid arthritis. MD JOESPH Lozano/VASQUEZ /[id number] NACHO
--- NOTE | 2018-12-15 04:17 | Consultation ---
DATE OF CONSULTATION: 12/14/2018 REASON FOR CONSULT: Ventricular tachycardia, atrial fibrillation. HISTORY OF THE PRESENT ILLNESS: This is a 63-year-old gentleman with history of hypertension, history of diabetes mellitus, history of chronic kidney disease stage 4, who was planning on undergoing dialysis. However, he presented with shortness of breath, feeling weak and tired, found to have hyperkalemia, underwent emergent hemodialysis, and during this hospital stay, he started having episodes of supraventricular tachycardia that appeared to be multifocal atrial tachycardia and also episodes of atrial fibrillation with the post termination pauses for about 2 seconds, one episode of atrial fibrillation that degenerated into nonsustained ventricular tachycardia. These multiple arrhythmias have been under monitor in the ICU now. He was started on amiodarone drip, currently maintaining sinus rhythm, feeling much better. The potassium has been corrected. He had severe anemia and he has improved now. Also the patient has history of pulmonary fibrosis, currently wearing oxygen. REVIEW OF SYSTEMS: CONSTITUTIONAL: Negative. CARDIOVASCULAR: As per HPI. RESPIRATORY: Negative. GASTROINTESTINAL: Negative. GENITOURINARY: Negative. MUSCULOSKELETAL: Negative. EYES: Negative. ENT: Negative. ALLERGY AND IMMUNOLOGY: Negative. PSYCHIATRIC: Negative. PAST MEDICAL HISTORY: Hypertension and diabetes. SURGICAL HISTORY: Hemodialysis catheter. FAMILY HISTORY: No premature coronary artery disease. SOCIAL HISTORY: Denies alcohol, smoking. PHYSICAL EXAMINATION: VITAL SIGNS: Blood pressure 138/60, pulse 60, respirations 20, and O2 sats 98%. GENERAL: No acute distress. HEENT: Moist mucous membranes. CARDIOVASCULAR: Regular. RESPIRATORY: A few crackles at the bases. ABDOMEN: Soft and nontender. MUSCULOSKELETAL: 2+ distal pulses. NEUROLOGICAL: No focal deficits. SKIN: No lesions. PSYCHIATRIC: Normal thought process. EKG: Sinus rhythm, normal intervals. IMPRESSION: 1. Multiple arrhythmias with supraventricular tachycardia, multifocal atrial tachycardia, atrial fibrillations with triggering, nonsustained ventricular tachycardia in the setting of hyperkalemia, acute kidney failure. 2. End-stage renal disease, started on hemodialysis. RECOMMENDATIONS: Had a discussion with the patient at this time these multiple types of arrhythmias appeared to be secondary to acute episodes of electrolyte disturbances. Also severe anemia and kidney failure, I agree with current management with amiodarone. I explained to the patient that the plan is to continue amiodarone for about 1-2 weeks. Hopefully, tomorrow can be switched to oral, however, wound not recommend more than two weeks due to his history of pulmonary fibrosis. Provided with our office contact information and we will follow up as an outpatient, so we can arrange for an event monitor as an outpatient. In the meantime, continue to watch his rhythm. Hopefully, he is better controlled now that the QT issues are controlled and also on amiodarone. Thank you for letting us to participate in Mr. Joseph's healthcare. Delano Walker MD JRSina/MODL /[id number]
--- NOTE | 2018-12-15 04:41 | Diagnostic Imaging Report ---
EXAMINATION: CHEST SINGLE (PORTABLE) INDICATION: pulm edema, resp failure, hx ild sec to ra COMPARISON: None FINDINGS: TUBES and LINES: Right IJ tunneled hematosis catheter terminates in the proximal right atrium. LUNGS: Low lung volumes which decreases sensitivity and specificity for pathology. There is perihilar fullness and indistinctness of the pulmonary vasculature, slightly improved in the right. There are patchy opacities at bilateral lung bases, slightly increased in the left lower lung. PLEURA: No pleural effusion or pneumothorax. HEART AND MEDIASTINUM: The cardiomediastinal silhouette is unremarkable. BONES AND SOFT TISSUES: No acute osseous abnormality. UPPER ABDOMEN: No free air under the diaphragm. IMPRESSION: Low lung volumes with slightly improved pulmonary interstitial edema. Patchy opacities at the lung bases may represent pulmonary fibrosis, alveolar edema, and/or pneumonia in the appropriate clinical setting. Signed by: Dr. Josh Nichole MD on 12/15/2018 4:37 AM
[2018-12-15 04:54] LABS: BASOPHILS % 0.3 % (0.0-1.0); EOSINOPHILS # (AUTO) 0.4 (0.0-0.4); EOSINOPHILS % 3.7 % (0.0-6.0); HEMATOCRIT 27.1 % (38.2-49.6); HEMOGLOBIN 8.3 g/dL (14.0-18.0); LYMPHOCYTES # (AUTO) 1.6 (1.0-3.2); LYMPHOCYTES % 15.3 % (18.0-39.1); MEAN CORPUSCULAR HEMOGLOBIN 26.9 pg (28-32); MEAN CORPUSCULAR HGB CONC 30.6 g/dL (31-35); MEAN CORPUSCULAR VOLUME 87.7 fL (81-99); MONOCYTES % 9.2 % (4.4-11.3); NEUTROPHILS # (AUTO) 7.6 (2.1-6.9); NEUTROPHILS % 71.1 % (38.7-80.0); PLATELET COUNT 223 x10e3/uL (140-360); RED BLOOD COUNT 3.09 x10e6/uL (4.3-5.7); RED CELL DISTRIBUTION WIDTH 14.9 % (11.7-14.4)
[2018-12-15 05:17] LABS: ALBUMIN 1.9 g/dL (3.5-5.0); ALBUMIN/GLOBULIN RATIO 0.5 (0.8-2.0); ANION GAP 18.7 mmol/L (8-16); CREATININE, SERUM 6.26 mg/dL (0.72-1.25); POTASSIUM 3.7 mmol/L (3.5-5.1)
[2018-12-15] MEDS: INSULIN REGULAR, HUMAN 100 UNIT/1 ML 3ML VIAL SQ SCH ×4 (07:16→21:46)
[2018-12-15] MEDS: ALLOPURINOL 100 MG TAB PO SCH (08:17)
[2018-12-15] MEDS: FUROSEMIDE INJ 10 MG/ML 4 ML VIAL IV SCH ×2 (08:17→21:44)
[2018-12-15] MEDS: DOCUSATE SODIUM 100 MG CAP PO SCH ×2 (08:17→17:00)
[2018-12-15] MEDS: METOPROLOL TARTRATE 50 MG TAB PO SCH ×2 (08:17→21:45)
[2018-12-15] MEDS: HEPARIN SOD (PORCINE) 5,000 UNIT/ML VIAL SC SCH ×2 (08:21→21:45)
--- NOTE | 2018-12-15 11:59 | NUR ---
FAXED CLINICALS TO [facility] [phone] FOR SUBMISSION FOR DIALYSIS REFERRAL, TEXTED REP TO LET KNOW FAX BEING SENT.
--- NOTE | 2018-12-15 12:30 | Progress Note ---
DATE: 12/15/2018 Cardiology Progress Note SUBJECTIVE: Feeling better. Denies chest pain or shortness of breath. No palpitations or lightheadedness. On telemetry, in sinus rhythm. Undergoing dialysis today. OBJECTIVE: VITAL SIGNS: Temperature 98.4, heart rate 60, blood pressure 161/71, respiratory rate 16, O2 saturation 100%, BMI 35. GENERAL: In no acute distress, alert. NECK: No JVD. CHEST: Clear to auscultation. CARDIOVASCULAR: Regular rate and rhythm. Normal S1, S2. ABDOMEN: Soft, nontender. Bowel sounds positive. EXTREMITIES: Trace edema. CARDIOVASCULAR MEDICATIONS: Reviewed. 1. Amiodarone IV drip being completed today. We will hold off on further doses, given patient's history of ILD. 2. Atorvastatin 80 mg at bedtime. 3. Furosemide 80 mg q.12 hours. 4. Metoprolol 50 mg every 12 hours. STUDIES: Reviewed. Sodium 140, potassium 3.7, chloride 97, bicarbonate 28, BUN 54, creatinine 6.2, glucose 109. White blood cells 10.6, hemoglobin 8.3, platelets 223. INR 0.9. AST 16, ALT 27, alkaline phosphatase 72. ASSESSMENT: 1. A 63-year-old man with nonsustained ventricular tachycardia. 2. Paroxysmal atrial fibrillation. 3. End-stage renal disease, recently declared. 4. Anemia. 5. Dyslipidemia. 6. Interstitial lung disease, pulmonary fibrosis. 7. Diabetes mellitus. RECOMMENDATIONS: 1. Indications, alternatives, risks, and benefits for coronary angiography and possible intervention have been discussed with the patient. We will plan on scheduling tomorrow early p.m. 2. Fecal occult blood test advised and requested. Discussed with the patient as well as with nursing staff. Anemia workup advised. 3. Continue metoprolol. 4. Once amiodarone completed, discontinue with dosing. 5. Continue rest of cardiovascular medications. MD SID Mcclure/VASQUEZ /[id number]
[2018-12-15] MEDS ORDERED: HEPARIN SOD (PORCINE) 1000 UNIT/ML SDV IV PRN (13:15)
--- NOTE | 2018-12-15 17:55 | NUR ---
Nutrition Screen Note RD Recommendation for Physician: -Continue renal/diabetic diet Plan of Care: RD following, monitoring for tolerance and adequacy Nutrition reason for involvement: Diagnosis ESRD and consult for dietary recommendations Primary Diagnose(s): anemia, hypocalcemia, pulmonary edema, renal failure, and respiratory distress PMH: HTN, high cholesterol, diabetes, acute renal failure, rheumatoid arthritis, pulmonary fibrosis, gout, and glaucoma Ht: 68 in Wt:231 lb BMI: 35.11 kg/m2 IBW: [address] Assessment: (12/15/18) Chart reviewed. Labs and meds reviewed. Pt a 63 year old male admitted with anemia, hypocalcemia, pulmonary edema, renal failure, and respiratory distress. Pt is receiving dialysis. Pt was on a clear liquid diet at time of visit and is now on a renal/diabetic diet. Pt mentioned he usually has a good appetite and eats all of his meals Pt reported he has gained wt due to fluid and he typically weighs 205-207 lbs without excess fluid. No chewing/swallowing issues. Provided pt and family members with renal and diabetic diet education at time of visit. Current Diet: Renal/Diabetic Diet Malnutrition Evaluation (12/15/18) The patient does not meet criteria for a specified degree of malnutrition at this time. Will re-evaluate at follow-up as appropriate. Diet Education Needs Assessment: Diet education indicated Learner(s): Pt and family member Barriers: No barriers identified Cultural/Language Modifications: No cultural/language modifications noted Readiness: Pt eager to learn Method: explanation/ discussion, handout Topics: renal and diabetic diet Understanding/Compliance: Pt verbalized understanding. Provided RD contact information if pt has questions. Nutrition Care Level: Low Signed: Brooke Massey, RD, LD
[2018-12-15] MEDS ORDERED: SODIUM CHLORIDE 0.9% 250ML 250 ML IV NR (20:15)
[2018-12-15] MEDS: ATORVASTATIN 40 MG TAB PO SCH (21:45)
[2018-12-15] MEDS: CEFTRIAXONE SOD 1 GM/NS 50 ML 50 ML IV SCH ×2 (23:42)
[2018-12-16] VITALS (22 sets, daily range): BP systolic 131–189; BP diastolic 59–88
[2018-12-16 04:55] LABS: BASOPHILS % 0.3 % (0.0-1.0); EOSINOPHILS # (AUTO) 0.3 (0.0-0.4); EOSINOPHILS % 3.3 % (0.0-6.0); HEMATOCRIT 28.6 % (38.2-49.6); HEMOGLOBIN 8.9 g/dL (14.0-18.0); LYMPHOCYTES # (AUTO) 1.5 (1.0-3.2); LYMPHOCYTES % 15.2 % (18.0-39.1); MEAN CORPUSCULAR HEMOGLOBIN 27.1 pg (28-32); MEAN CORPUSCULAR HGB CONC 31.1 g/dL (31-35); MEAN CORPUSCULAR VOLUME 86.9 fL (81-99); NEUTROPHILS # (AUTO) 6.9 (2.1-6.9); NEUTROPHILS % 70.7 % (38.7-80.0); PLATELET COUNT 223 x10e3/uL (140-360); RED BLOOD COUNT 3.29 x10e6/uL (4.3-5.7); RED CELL DISTRIBUTION WIDTH 14.7 % (11.7-14.4)
[2018-12-16 05:19] LABS: ALBUMIN 1.9 g/dL (3.5-5.0); ALBUMIN/GLOBULIN RATIO 0.5 (0.8-2.0); ANION GAP 15.6 mmol/L (8-16); CALCIUM 7.4 mg/dL (8.4-10.2); CREATININE, SERUM 5.49 mg/dL (0.72-1.25); POTASSIUM 3.6 mmol/L (3.5-5.1)
[2018-12-16] MEDS: INSULIN REGULAR, HUMAN 100 UNIT/1 ML 3ML VIAL SQ SCH ×4 (07:30→20:50)
[2018-12-16] MEDS: FUROSEMIDE INJ 10 MG/ML 4 ML VIAL IV SCH ×2 (08:20→21:00)
[2018-12-16] MEDS: METOPROLOL TARTRATE 50 MG TAB PO SCH ×2 (08:20→21:00)
[2018-12-16] MEDS: ALLOPURINOL 100 MG TAB PO SCH (08:20)
[2018-12-16] MEDS: DOCUSATE SODIUM 100 MG CAP PO SCH ×2 (08:20→17:00)
[2018-12-16] MEDS: HEPARIN SOD (PORCINE) 5,000 UNIT/ML VIAL SC SCH ×2 (08:32→21:00)
[2018-12-16] MEDS: AMIODARONE HCL 900 MG in DEXTROSE 5 % 500ML BOTTLE 500 ML IV SCH (08:33)
[2018-12-16] MEDS ORDERED: FENTANYL CITRATE/PF 100MCG/2 ML INJ ONE (13:43)
[2018-12-16] MEDS ORDERED: MIDAZOLAM HCL 2 MG/2 ML VIAL ONE (13:43)
[2018-12-16] MEDS ORDERED: LIDOCAINE HCL 2% LOCAL 20 ML VIAL ONE (13:43)
[2018-12-16] MEDS ORDERED: SODIUM CHLORIDE 0.9% 1000ML 1,000 ML ONE (13:44)
[2018-12-16] MEDS ORDERED: HEPARIN SOD/SOD CHLORIDE 2,000 ML ONE (13:44)
[2018-12-16] MEDS ORDERED: IOPAMIDOL 370 MG/ML 200 ML INFUS..BTL INJ ONE (13:44)
[2018-12-16] MEDS ORDERED: HEPARIN SOD (PORCINE) 1000 UNIT/ML SDV IV PRN (14:15)
[2018-12-16] MEDS ORDERED: SODIUM CHLORIDE 0.9% 250ML 500 ML IV PRN (14:15)
[2018-12-16] MEDS ORDERED: SODIUM CHLORIDE 0.9% 1000ML 2,000 ML IV PRN (14:15)
[2018-12-16] MEDS ORDERED: BIVALRIUDIN 250 MG/VIAL VIAL IV ONE (15:59)
[2018-12-16] MEDS ORDERED: SODIUM CHLORIDE 0.9% 50ML 50 ML ONE (15:59)
[2018-12-16] MEDS ORDERED: ONDANSETRON HCL INJ 2MG/ML 2ML 2 MG/ML VIAL ONE (16:20)
[2018-12-16] MEDS ORDERED: TICAGRELOR 90 MG TABLET ONE (16:32)
[2018-12-16] MEDS ORDERED: ASPIRIN 325 MG TAB ONE (16:32)
--- NOTE | 2018-12-16 16:49 | NUR ---
pt off the unit from 1429 to 1643 in lab director. 1644 in unit. vs recorded. rt groin soft tender no hematoma noted family at bedside.
[2018-12-16] MEDS: ATORVASTATIN 40 MG TAB PO SCH (21:00)
[2018-12-16] MEDS: TICAGRELOR 90 MG TABLET PO SCH (21:00)
--- NOTE | 2018-12-16 22:19 | Progress Note ---
DATE: 12/16/2018 Cardiology Progress Note SUBJECTIVE: No new complaints today. Shortness of breath is better, status post LAD, drug-eluting stent, PCI. OBJECTIVE: VITAL SIGNS: Temperature 99.1, heart rate 61, respiratory rate 18, blood pressure 161/61, O2 saturation 100%, BMI 34.6. GENERAL: In no acute distress, alert. NECK: No JVD. CHEST: Clear to auscultation. CARDIOVASCULAR: Regular rate and rhythm. Normal S1, S2. No S3, no S4. ABDOMEN: Soft, nontender. Bowel sounds positive. EXTREMITIES: 1+ edema. CARDIOVASCULAR MEDICATIONS: Reviewed. 1. Amiodarone. 2. Furosemide 80 mg IV b.i.d. 3. Atorvastatin 80 mg at bedtime. 4. Metoprolol tartrate 50 mg q.12 hours. 5. Aspirin 81 mg daily. 6. Clopidogrel 75 mg daily. STUDIES: Reviewed. Sodium 139, potassium 3.6, chloride 97, bicarb 30, BUN 37, creatinine 5.4, glucose 106. White blood cells 9.6, hemoglobin 8.9, platelets 223. INR 0.9, PT 13, PTT 26.6. AST 14, ALT 20, alkaline phosphatase 79, total bilirubin 0.3. ASSESSMENT: A 63-year-old man with: 1. Multivessel coronary artery disease, status post LAD drug-eluting stent percutaneous coronary intervention with residual severe stenosis of proximal RCA. 2. Ventricular tachycardia. 3. Atrial fibrillation. 4. Worsening chronic kidney disease, now end-stage renal disease, recurrent on this admission. 5. Morbid obesity. 6. Pulmonary fibrosis. 7. Acute on chronic systolic heart failure with LVEF 35% to 40%. 8. Dyslipidemia. RECOMMEND: 1. Continue dual antiplatelet therapy. 2. Continue statin. 3. Continue beta anupam. 4. Anemia workup. 5. Staged PCI to RCA, the patient with predominant diffuse disease, status post LAD. Ashu Donaldson MD AFGwen/MODL /[id number]
[2018-12-16] MEDS: HYDROCODONE/APAP 5MG-325MG TAB PO PRN (23:19)
[2018-12-16] MEDS: CEFTRIAXONE SOD 1 GM/NS 50 ML 50 ML IV SCH (23:27)
[2018-12-17] VITALS (21 sets, daily range): BP systolic 119–180; BP diastolic 55–96
[2018-12-17] MEDS: AMIODARONE HCL 900 MG in DEXTROSE 5 % 500ML BOTTLE 500 ML IV SCH (00:53)
--- NOTE | 2018-12-17 01:50 | Operative Report ---
DATE OF PROCEDURE: 12/16/2018 SURGEON: Ashu Donaldson MD PROCEDURE: Cardiac catheterization. PROCEDURE INDICATIONS: VTAC, non-ST elevation MT, and acute systolic heart failure. PROCEDURES PERFORMED: 1. Left heart catheterization. 2. Selective coronary angiography. 3. LAD drug-eluting stent PCI. 4. Right common femoral artery and six-Malagasy Angio-Seal closure. PROCEDURE COMPLICATIONS: None. ESTIMATED BLOOD LOSS: Less than 15 mL. PROCEDURE SUMMARY: After consent was obtained, the patient was prepped and draped in a sterile fashion. The right femoral site was locally infiltrated with 2% lidocaine and with micropuncture kit, access was obtained to the left common femoral artery. At the end of the procedure, an Angio-Seal six-Malagasy was used to repair the arteriotomy site achieving adequate hemostasis. These were the following findings: After initial engagement with JL4 and JR4 of the left coronary artery and right coronary artery respectively as well as across the aortic valve for hemodynamic measurements with a JL3.5 and a JR4 for angiography of the left main and of the right coronary artery respectively and the aortic valve was crossed with JR4. An XB LAD 3.0 no side holes six-Malagasy guide catheter was used for the intervention. A Runthrough wire was used to cross the LAD areas of stenosis and positioned in the distal LAD. Predilatation was performed with an Emerge 2.25 x 8 balloon, proximal to mid LAD and Resolute [place] 2.5 x 15 drug-eluting stent was deployed to 18 atmospheres across the target lesion. FINDINGS: 1. Normal left ventriculogram was performed. 2. LV pressure was 167/5 with end-diastolic pressure of 13. 3. Aortic pressure is 163/66. 4. The left main is large in caliber with diffuse 30% stenosis and moderate calcifications giving a large caliber LAD and a large caliber circumflex. 5. The LAD has heavy calcification in the proximal segment with diffuse disease all the way to the left main. After giving a small caliber 1st diagonal, which has ostial 70% stenosis prior to bifurcating into two terminal branches (found septal perforators in the diagonal). The mid LAD has a focal area of 80% stenosis with moderate calcifications. This was the target lesion of the LAD, which was treated with ERP IMPLEMENTATION CONSULTANT and stent as will be described below. The distal LAD has a focal small segment of 50% to 60% stenosis at this level. This is small in caliber and there seems to be diffuse disease throughout the whole extent of the LAD of urtc-km-[id number] severity. 6. The circumflex is large in caliber with less than 50% stenosis. It gives two small caliber obtuse marginal and medium caliber 2nd obtuse marginal and two additional left posterolateral branches and a left atrial branch all of which are small in caliber. 7. The right coronary artery is dominant with a focal area of proximal 70% stenosis. It gives a conus branch proximally and RV marginal in the mid segment and a terminal RPDA and RPLV of small caliber. Of note, there is diffuse disease of wwyd-sk-iozoyhma severity across the full extent of the right coronary artery too. CONCLUSION: Successful drug-eluting stent PCI of LAD. We will start stenting of the proximal to mid LAD segment in the setting of underlying diffuse coronary artery disease and focal and moderate distal LAD disease as well as ekhl-gs-cntsknce left main disease and severe RCA proximal stenosis in the setting of underlying diffuse RCA disease. RECOMMENDATIONS: 1. Aspirin 81 mg daily. 2. Brilinta 90 mg every 12 hours. 3. Staged PCI of the proximal LAD. 4. The patient with severe comorbidities including pulmonary fibrosis and end-stage renal disease, morbid obesity. Await recovery from a coronary standpoint and consider staged PCI . MD SID Mcclure/VASQUEZ /[id number]
[2018-12-17 05:02] LABS: BASOPHILS % 0.2 % (0.0-1.0); EOSINOPHILS # (AUTO) 0.2 (0.0-0.4); EOSINOPHILS % 2.2 % (0.0-6.0); HEMATOCRIT 28.7 % (38.2-49.6); LYMPHOCYTES # (AUTO) 0.9 (1.0-3.2); LYMPHOCYTES % 10.7 % (18.0-39.1); MEAN CORPUSCULAR HEMOGLOBIN 27.1 pg (28-32); MEAN CORPUSCULAR HGB CONC 31.4 g/dL (31-35); MEAN CORPUSCULAR VOLUME 86.4 fL (81-99); MONOCYTES % 10.8 % (4.4-11.3); NEUTROPHILS # (AUTO) 6.7 (2.1-6.9); NEUTROPHILS % 75.5 % (38.7-80.0); PLATELET COUNT 220 x10e3/uL (140-360); RED BLOOD COUNT 3.32 x10e6/uL (4.3-5.7); RED CELL DISTRIBUTION WIDTH 14.6 % (11.7-14.4)
[2018-12-17 05:23] LABS: ANION GAP 15.3 mmol/L (8-16); CALCIUM 7.6 mg/dL (8.4-10.2); CREATININE, SERUM 4.74 mg/dL (0.72-1.25); POTASSIUM 4.3 mmol/L (3.5-5.1)
[2018-12-17] MEDS: FUROSEMIDE INJ 10 MG/ML 4 ML VIAL IV SCH ×2 (08:11→21:21)
[2018-12-17] MEDS: ASPIRIN 81 MG CHEW TAB PO SCH (08:11)
[2018-12-17] MEDS: TICAGRELOR 90 MG TABLET PO SCH ×2 (08:11→21:21)
[2018-12-17] MEDS: DOCUSATE SODIUM 100 MG CAP PO SCH ×2 (08:12→16:11)
[2018-12-17] MEDS: INSULIN REGULAR, HUMAN 100 UNIT/1 ML 3ML VIAL SQ SCH ×4 (08:12→20:50)
[2018-12-17] MEDS: METOPROLOL TARTRATE 50 MG TAB PO SCH ×2 (08:12→21:18)
[2018-12-17] MEDS: ALLOPURINOL 100 MG TAB PO SCH (08:12)
[2018-12-17] MEDS: HEPARIN SOD (PORCINE) 5,000 UNIT/ML VIAL SC SCH ×2 (08:13→20:53)
--- NOTE | 2018-12-17 08:23 | NUR ---
CONTACTED [facility] ADMISSION LINE TO CHECK UP ON REFERRAL, THEY STATES DID NOT RECEIVE THE CLINICALS, FAXED AGAIN.
[2018-12-17] MEDS ORDERED: INFLUENZA VIRUS VAC SPLIT INJ 0.5 ML SYR IM SCH (09:00)
--- NOTE | 2018-12-17 12:30 | NUR ---
CONSULT CALLED FOR SPOKE TO YANE.
--- NOTE | 2018-12-17 12:31 | Progress Note ---
DATE: 12/17/2018 Cardiology Progress Note SUBJECTIVE: Denies chest pain or shortness of breath. Denies nausea or other complaints today. OBJECTIVE: VITAL SIGNS: Temperature 98.1, heart rate 66, respiratory rate 12, blood pressure 170/73, and O2 saturation 99% on nasal cannula 2 L/minute. GENERAL: In no acute distress, alert. NECK: No JVD. CHEST: Clear to auscultation. CARDIOVASCULAR: Regular rate and rhythm. Normal S1, S2. ABDOMEN: Soft. EXTREMITIES: Trace edema. CARDIOVASCULAR MEDICATIONS: Reviewed. 1. Metoprolol tartrate 50 mg every 12 hours. 2. Aspirin 81 mg daily. 3. Furosemide 80 mg IV q.12 hours. 4. Atorvastatin 80 mg at bedtime. 5. Ticagrelor 90 mg every 12 hours (Brilinta). STUDIES: Reviewed. White blood cells 8.8, hemoglobin 9, platelets 220, creatinine 4.7, potassium 4.3, and bicarbonate 28. ASSESSMENT AND PLAN: 1. Multivessel coronary artery disease, status post LAD drug-eluting stent PCI with severe residual RCA stenosis. 2. Ventricular tachycardia. 3. Atrial fibrillation. 4. End-stage renal disease. 5. Wscod-fi-vdeclwf systolic heart failure with LVEF 35% to 40%. 6. Dyslipidemia. 7. Pulmonary fibrosis. 8. Morbid obesity. RECOMMENDATIONS: 1. Continue aspirin and Brilinta. 2. Continue statin. 3. Continue beta-anupam. 4. Anemia workup. 5. Consider staged drug-eluting stent PCI of RCA, can perform either as outpatient or next week based on the patient's continued clinical recovery and whether the patient is discharge or stays in house for this time. Discussed at length with the patient and family members. MD SID Mcclure/VASQUEZ /[id number]
[2018-12-17] MEDS: ATORVASTATIN 40 MG TAB PO SCH (21:21)
[2018-12-17] MEDS: CEFTRIAXONE SOD 1 GM/NS 50 ML 50 ML IV SCH (23:15)
[2018-12-18] VITALS (10 sets, daily range): BP systolic 111–154; BP diastolic 52–79
[2018-12-18 05:19] LABS: BASOPHILS % 0.3 % (0.0-1.0); EOSINOPHILS # (AUTO) 0.4 (0.0-0.4); EOSINOPHILS % 3.5 % (0.0-6.0); HEMATOCRIT 27.3 % (38.2-49.6); HEMOGLOBIN 8.5 g/dL (14.0-18.0); LYMPHOCYTES # (AUTO) 1.8 (1.0-3.2); LYMPHOCYTES % 16.1 % (18.0-39.1); MEAN CORPUSCULAR HEMOGLOBIN 26.6 pg (28-32); MEAN CORPUSCULAR HGB CONC 31.1 g/dL (31-35); MEAN CORPUSCULAR VOLUME 85.6 fL (81-99); MONOCYTES # (AUTO) 1.2 (0.2-0.8); NEUTROPHILS # (AUTO) 7.5 (2.1-6.9); NEUTROPHILS % 68.5 % (38.7-80.0); PLATELET COUNT 211 x10e3/uL (140-360); RED BLOOD COUNT 3.19 x10e6/uL (4.3-5.7); RED CELL DISTRIBUTION WIDTH 14.4 % (11.7-14.4)
[2018-12-18 05:50] LABS: ANION GAP 17.8 mmol/L (8-16); CALCIUM 7.8 mg/dL (8.4-10.2); CREATININE, SERUM 6.49 mg/dL (0.72-1.25); PHOSPHORUS 5.6 MG/DL (2.3-4.7); POTASSIUM 3.8 mmol/L (3.5-5.1)
[2018-12-18] MEDS: INSULIN REGULAR, HUMAN 100 UNIT/1 ML 3ML VIAL SQ SCH ×4 (07:30→21:42)
[2018-12-18] MEDS: DOCUSATE SODIUM 100 MG CAP PO SCH ×2 (08:09→16:46)
[2018-12-18] MEDS: FUROSEMIDE INJ 10 MG/ML 4 ML VIAL IV SCH ×2 (08:09→21:40)
[2018-12-18] MEDS: TICAGRELOR 90 MG TABLET PO SCH ×2 (08:09→21:40)
[2018-12-18] MEDS: ALLOPURINOL 100 MG TAB PO SCH (08:09)
[2018-12-18] MEDS: ASPIRIN 81 MG CHEW TAB PO SCH (08:09)
[2018-12-18] MEDS: HEPARIN SOD (PORCINE) 5,000 UNIT/ML VIAL SC SCH ×2 (08:14→21:41)
[2018-12-18] MEDS: METOPROLOL TARTRATE 50 MG TAB PO SCH ×2 (09:00→21:41)
--- NOTE | 2018-12-18 12:26 | NUR ---
pt on HD at this time Addendum: 12/18/18 at 1226 by Loco Alvarez PTA Amended: Links added.
--- NOTE | 2018-12-18 13:12 | Progress Note ---
DATE: 12/18/2018 SUBJECTIVE: Seen at the end of dialysis, apparently tolerated 3 L of fluid removed. OBJECTIVE: VITAL SIGNS: Temperature 98, pulse 70, blood pressure 111/79. EXTREMITIES: Trace edema. GENERAL: No distress. LUNGS: Chest pain, crackles (known history of pulmonary fibrosis). LABORATORY DATA: Hemoglobin 8.5, K 3.8, creatinine 6.5, BUN 35, phosphorus 5.6. ASSESSMENT: End-stage renal disease, hyperphosphatemia, history of fluid overload, diabetic nephropathy, pulmonary fibrosis, gout that is controlled. PLAN: Hemodialysis done today about 3 L of fluid removed. Please see the orders for details. Continue IV Lasix for now. He already has a tunneled catheter. Awaiting fistula placement potentially this hospitalization if not electively. He is having further percutaneous coronary intervention. Defer to Dr. Olson. Keep salt and water restrict. Add sevelamer for hyperphosphatemia. We will follow along. MD MOODY Farr/VASQUEZ /[id number]
[2018-12-18] MEDS: SEVELAMER CARBONATE 800 MG TAB PO SCH (16:46)
[2018-12-18] MEDS: ATORVASTATIN 40 MG TAB PO SCH (21:40)
[2018-12-18] MEDS: CEFTRIAXONE SOD 1 GM/NS 50 ML 50 ML IV SCH (23:39)
[2018-12-19 04:00] VITALS: BP 152/59
[2018-12-19 07:00] VITALS: BP 132/63
[2018-12-19] MEDS: INSULIN REGULAR, HUMAN 100 UNIT/1 ML 3ML VIAL SQ SCH ×4 (07:30→21:34)
[2018-12-19] MEDS: DOCUSATE SODIUM 100 MG CAP PO SCH ×2 (08:08→17:29)
[2018-12-19] MEDS: SEVELAMER CARBONATE 800 MG TAB PO SCH ×3 (08:08→17:29)
[2018-12-19] MEDS: FUROSEMIDE INJ 10 MG/ML 4 ML VIAL IV SCH ×2 (08:08→21:30)
[2018-12-19] MEDS: TICAGRELOR 90 MG TABLET PO SCH ×2 (08:08→21:30)
[2018-12-19] MEDS: ASPIRIN 81 MG CHEW TAB PO SCH (08:08)
[2018-12-19] MEDS: ALLOPURINOL 100 MG TAB PO SCH (08:10)
[2018-12-19] MEDS: METOPROLOL TARTRATE 50 MG TAB PO SCH ×2 (08:10→21:00)
[2018-12-19] MEDS: HEPARIN SOD (PORCINE) 5,000 UNIT/ML VIAL SC SCH (08:11)
[2018-12-19] MEDS: ONDANSETRON HCL INJ 2MG/ML 2ML 2 MG/ML VIAL IV PRN (08:26)
[2018-12-19] MEDS: HYDROCODONE/APAP 5MG-325MG TAB PO PRN ×2 (08:27→19:45)
[2018-12-19 10:02] VITALS: BP 132/63
[2018-12-19 11:00] VITALS: BP 127/63
--- NOTE | 2018-12-19 14:27 | Progress Note ---
DATE: 12/19/2018 Cardiology Progress Note SUBJECTIVE: Denies chest pain or shortness of breath. OBJECTIVE: VITAL SIGNS: Temperature 98.3, heart rate 67, respiratory rate 14, O2 saturation 99%. Blood pressure is 132/63, O2 saturation 99%. GENERAL: No acute distress, alert. NECK: No JVD. CHEST: Clear to auscultation. CARDIOVASCULAR: Regular rate and rhythm. Normal S1 and S2. No S3, no S4. No murmurs, no rubs. ABDOMEN: Soft, nontender, nondistended. Bowel sounds positive. EXTREMITIES: Trace edema. CARDIOVASCULAR MEDICATIONS: Reviewed. Furosemide 80 mg b.i.d., aspirin 81 mg daily, ticagrelor 90 mg every 12 hours, metoprolol tartrate 50 mg every 12 hours, atorvastatin 80 mg at bedtime. STUDIES: Reviewed. Remarkable for creatinine of 6.4, potassium 3.8, bicarbonate 28, hemoglobin 8.5, platelets 211. ASSESSMENT AND PLAN: 1. A 63-year-old man presents with multivessel coronary artery disease status post left anterior descending artery drug-eluting stent percutaneous coronary intervention with residual severe right coronary artery stenosis. 2. Status post ventricular tachycardia. 3. Atrial fibrillation. 4. End-stage renal disease. 5. Acute on chronic systolic heart failure with left ventricular ejection fraction 35% to 40%. 6. Dyslipidemia. 7. Pulmonary fibrosis. 8. Morbid obesity. RECOMMENDATIONS: 1. Continue dual antiplatelet therapy with aspirin and Brilinta. 2. Continue statin. 3. Continue beta-anupam. 4. Stage drug-eluting stent RCA PCI likely tomorrow a.m. MD SID Mcclure/VASQUEZ /[id number]
[2018-12-19 15:00] VITALS: BP 129/56
--- NOTE | 2018-12-19 15:15 | NUR ---
Visit made by the Spiritual Care Department Pastoral Visitor, Boby Rod. PV provided pastoral presence, hospitality, communion, prayer, and supportive listening. Pastoral Visitor informed pt/family of the scope of [facility] and availability. LUISITO WATSON Slot Service Specialist Spiritual Care Department O: [phone] Pager: [phone] calling from)
[2018-12-19 19:30] VITALS: BP 147/60
--- NOTE | 2018-12-19 19:30 | NUR ---
RECEIVED PT IN BED A/A/OX3 WITH C/O RIGHT KNEE PAIN 07/19. RESPIRATION EVEN AND UNLABORED. PT HAS A RIGHT CHEST WALL TUNNELED CATHETER FOR HEMODIALYSIS. PT HAS A RFA 20G SL AND A LFA 20G SL, PATENT AND INTACT. PT IS ON O2 2L VIA NC AND USES A CPAP AT NOC. +BOWEL SOUNDS NOTED. PER SPOUSE, PT IS OLIGURIC AND HAS DIALYSIS MWF. PT IS LEGALLY BLIND, SKIN IS INTACT, NO EDEMA NOTED, ALL PULSES ARE PALPABLE. PT IS AFEBRILE, HR IS BRADYCARDIA.
--- NOTE | 2018-12-19 19:45 | NUR ---
PT IS GIVEN NORCO 1 TAB FOR RIGHT KNEE PAIN, WILL REASSESS FOR MEDICATION EFFECTIVENESS.
--- NOTE | 2018-12-19 20:30 | NUR ---
PT DENIES ANY PAIN AT THIS TIME. BS IS 223, 6 UNITS INSULIN GIVEN PER SS. LOPRESSOR HELD DUE TO HR AT 53, PER DR. DESIR, HEPARIN IS HELD AND BRILINTA IS GIVEN WITH EVENING MEDS.
--- NOTE | 2018-12-19 21:10 | NUR ---
Per Dr. Olson patient may have Brilinta dose tonight and tomorrow but hold Heparin 5000u Sq dose tonight and tomorrow's AM dose.
[2018-12-19] MEDS: ATORVASTATIN 40 MG TAB PO SCH (21:30)
--- NOTE | 2018-12-19 21:47 | NUR ---
Received report from IMCU nurse.
--- NOTE | 2018-12-19 21:50 | NUR ---
PER MD ORDERS, PT IS TRANSFERRED TO ROOM 206. ALL PERSONAL BELONGINS ARE PACKED BY THE SPOUSE AND TRANSFERRED WITH THE PATIENT. REPORT IS CALLED.
--- NOTE | 2018-12-19 22:00 | NUR ---
Patient arrived to the floor via stretcher. Patient AAOx3. Blind x2. Pt denies pain at this time. at bedside. Pt NPO at this time. Continue monitor.
[2018-12-19] MEDS: CEFTRIAXONE SOD 1 GM/NS 50 ML 50 ML IV SCH (22:58)
[2018-12-20] VITALS (25 sets, daily range): BP systolic 131–180; BP diastolic 65–88
--- NOTE | 2018-12-20 01:59 | NUR ---
Patient has Bipap on. Resting quitly at this time. No noted distress or discomfort. Continue monitor for changes in Pt condition.
--- NOTE | 2018-12-20 05:33 | NUR ---
Patient in bed with no co at this time.
[2018-12-20 05:50] LABS: ANION GAP 16.2 mmol/L (8-16); CALCIUM 8.1 mg/dL (8.4-10.2); CREATININE, SERUM 7.26 mg/dL (0.72-1.25); MAGNESIUM 2.2 MG/DL (1.3-2.1); PHOSPHORUS 5.8 MG/DL (2.3-4.7); POTASSIUM 4.2 mmol/L (3.5-5.1)
--- NOTE | 2018-12-20 07:00 | NUR ---
BEDSIDE SHIFT REPORT RECEIVED FROM THE SUBCONTRACT ADMINISTRATOR RN. EDUCATED PT ABOUT FALL PRECAUTIONS. BED IS LOW AND LOCKED. BED ALARM IS ON. SIDE RAILS X2. CALL LIGHT WITH IN EASY REACH. INFORMED PT TO USE CALL LIGHT FOR ANY NEEDS. PT VERBALIZED UNDERSTANDING. AST BEDSIDE. PT DENIES NEEDS AT THIS TIME.
[2018-12-20] MEDS: INSULIN REGULAR, HUMAN 100 UNIT/1 ML 3ML VIAL SQ SCH ×4 (07:30→21:21)
[2018-12-20] MEDS: SEVELAMER CARBONATE 800 MG TAB PO SCH ×3 (08:00→17:00)
--- NOTE | 2018-12-20 08:30 | NUR ---
CALLED AND SPOKE WITH GUS AT [facility], SHE STATES HER COPY OF FACESHEET AND HEP PANEL WERE BLURRED IN FAX, I FAXED NEW COPIES. SHE STATES SHE SHOULD HAVE A LETTER READY FOR ME TODAY, WILL EMAIL WHEN READY.
[2018-12-20] MEDS: TICAGRELOR 90 MG TABLET PO SCH ×2 (09:00→21:05)
[2018-12-20] MEDS: ALLOPURINOL 100 MG TAB PO SCH (09:00)
[2018-12-20] MEDS: METOPROLOL TARTRATE 50 MG TAB PO SCH ×2 (09:00→21:06)
[2018-12-20] MEDS: ASPIRIN 81 MG CHEW TAB PO SCH (09:00)
[2018-12-20] MEDS: DOCUSATE SODIUM 100 MG CAP PO SCH ×2 (09:00→17:00)
[2018-12-20] MEDS: FUROSEMIDE INJ 10 MG/ML 4 ML VIAL IV SCH ×2 (09:52→21:05)
--- NOTE | 2018-12-20 10:00 | NUR ---
PT IS ON NPO FOR HEART CATH. TAKER OFF AT BEDSIDE. INFORMED TAKER OFF THAT PT IS GOING FOR HEART CATH. PT FAMILY ALSO REQUESTED HEART CATH FIRST. PAGED EARLY CHILDHOOD SERVICES COORDINATOR AND CONFIRMED THE TIMING FOR 11 AM. PT DENIED FURTHER NEEDS.
--- NOTE | 2018-12-20 10:50 | NUR ---
CALLED AND SPOKE WITH GUS AND CONFIRMED RECEIPT OF INFORMATION FAXED THIS MORNING, SHE STATES YES, SHE IS PROCESSING AND SHOULD HEAR SOMETHING BY END OF DAY.
--- NOTE | 2018-12-20 11:00 | NUR ---
PT OFF UNIT FOR PROCEDURE IN SAFE CONDITION.
[2018-12-20] MEDS ORDERED: SODIUM CHLORIDE 0.9% 1000ML 1,000 ML ONE (11:07)
[2018-12-20] MEDS ORDERED: LIDOCAINE HCL 2% LOCAL 20 ML VIAL ONE (11:07)
[2018-12-20] MEDS ORDERED: MIDAZOLAM HCL 2 MG/2 ML VIAL ONE (11:07)
[2018-12-20] MEDS ORDERED: HEPARIN SOD/SOD CHLORIDE 2,000 ML ONE (11:07)
[2018-12-20] MEDS ORDERED: IOPAMIDOL 370 MG/ML 200 ML INFUS..BTL INJ ONE (11:07)
[2018-12-20] MEDS ORDERED: FENTANYL CITRATE/PF 100MCG/2 ML INJ ONE (11:07)
[2018-12-20] MEDS ORDERED: ONDANSETRON HCL INJ 2MG/ML 2ML 2 MG/ML VIAL ONE (12:37)
--- NOTE | 2018-12-20 13:03 | Progress Note ---
DATE: 12/20/2018 Cardiology Progress Note SUBJECTIVE: No chest pain or shortness of breath today. Scheduled for RCA PCI this a.m. OBJECTIVE: VITAL SIGNS: Temperature 97.6, heart rate 59, respiratory rate 16, blood pressure 166/74, O2 saturation 100%. GENERAL: No acute distress, alert. NECK: No JVD. CHEST: Clear to auscultation. CARDIOVASCULAR: Regular rate and rhythm. Normal S1 and S2. No S3. No S4. ABDOMEN: Soft. EXTREMITIES: Trace edema. CARDIOVASCULAR MEDICATIONS: Reviewed. 1. Furosemide 80 mg every 12 hours. 2. Aspirin 81 mg daily. 3. Metoprolol tartrate 50 mg every 12 hours. 4. Ticagrelor 90 mg every 12 hours. 5. Atorvastatin 80 mg at bedtime. STUDIES: Reviewed. Sodium 139, potassium 4.2, chloride 99, bicarbonate 28, BUN 39, creatinine 7.2, glucose 131. White blood cells 10.9, hemoglobin 8.5, platelets 211. INR 0.9, PT 13, PTT 26. AST 14, ALT 20, alkaline phosphatase 79. ASSESSMENT AND PLAN: 1. A 63-year-old man with tbo-KE-zougoocmn myocardial infarction in the setting of multivessel coronary artery disease, status post recent LAD PCI, is scheduled for elective RCA drug-eluting stent PCI today. 2. Nonsustained ventricular tachycardia. 3. Atrial fibrillation, paroxysmal. 4. Dyslipidemia. 5. Diabetes measures mellitus type 2. 6. Hypertension. 7. Kprsj-qq-ebgusbi systolic heart failure with LVEF 35% to 40%. 8. Pulmonary fibrosis. 9. Morbid obesity. RECOMMENDATIONS: 1. Continue dual antiplatelet therapy. 2. Continue statin. 3. Continue beta-anupam. 4. Postop care after PCI. 5. Volume optimization per Nephrology. Ashu Donaldson MD AFV/MODL /[id number]
[2018-12-20] MEDS ORDERED: TICAGRELOR 90 MG TABLET ONE (13:17)
[2018-12-20] MEDS ORDERED: ASPIRIN 81 MG CHEW TAB ONE (13:18)
--- NOTE | 2018-12-20 13:43 | NUR ---
RECEIVED LETTER FOR DIALYSIS CHAIR AT [address] [place] [address], THURSDAY, THURSDAY AND FRIDAYS AT 11:25 AM. PUT COPY OF LETTER IN CHART AND GAVE SEVERAL COPIES TO AT BEDSIDE. PATIENT AND FAMILY HAVE CARD TO CALL ME IF THERE ANY OTHER QUESTIONS OR NEEDS.
[2018-12-20] MEDS ORDERED: LACTULOSE SYRUP 20 GM/30 ML UDC PO ONE (13:45)
--- NOTE | 2018-12-20 14:04 | Operative Report ---
DATE OF PROCEDURE: 12/20/2018 SURGEON: Ashu Donaldson MD Cardiac Catheterization and Intervention PROCEDURE INDICATION: Ewa-QY-pkdtkspow myocardial infarction. The patient with ventricular tachycardia and multivessel coronary artery disease with recent LAD drug-eluting stent PCI, and now pending staged RCA severe stenosis PCI. PROCEDURES PERFORMED: 1. Selective coronary angiography. 2. RCA drug-eluting stent PCI. 3. Manual pressure hemostasis. PROCEDURE COMPLICATIONS: None. ESTIMATED BLOOD LOSS: Less than 15 mL. BATCH WEIGHER: Ashu Donaldson MD., Interventional Cardiology. DESCRIPTION OF PROCEDURE: After consent was obtained, the patient was prepped and draped in a sterile fashion. The right femoral site was locally infiltrated with 2% lidocaine and access was obtained with micropuncture kit. A 6-Iraqi sheath was initially placed and thereafter, upsized for a 7-Iraqi to improve mobility due to initial issues with torquing 6-Iraqi guide. Several guides were used to tent out and elongate the right coronary artery, which included a JR4 with side holes, AAR2 with side holes, 3DRC with side holes and JR3.5 with side holes. Of all these guides, there was a 3DRC with side holes best aligned with the RCA, after which a run-through wire was used to cross the area of stenosis and primary stenting was performed with 2.5 x 12 Resolute Wasta next drug-eluting stent deployed to 18 atmospheres across the target lesion in the proximal RCA with excellent results. Preprocedure JAMI flow 3, at postprocedure, JAMI flow 3. Preprocedure stenosis 70%, postprocedure stenosis 0%. There was no flow-limiting dissections or perforations after the intervention. The angiographic assessment revealed the right coronary artery to have 70% ostial stenosis and otherwise diffuse luminal irregularity throughout the rest of the RCA with a terminal RPDA and RPLV branches arising at the end of the RCA. CONCLUSION: Successful drug-eluting stent PCI of a proximal RCA stenosis with excellent angiographic results. RECOMMENDATIONS: Aspirin 81 mg daily and Brilinta 90 mg every 12 hours. Ashu Donaldson MD AFV/MODL /[id number]
[2018-12-20] MEDS ORDERED: ONDANSETRON HCL 4 MG ORAL DISINTEGRATING TAB PO PRN (14:45)
--- NOTE | 2018-12-20 15:22 | NUR ---
EDUCATED ABOUT IMM, SIGNED, FILED IN CHART, WITH COPY LEFT WITH FAMILY AT BEDSIDE.
--- NOTE | 2018-12-20 16:14 | NUR ---
Spoke with Dr. Vernon regarding PT's recommendation for HH. CM to pt's room and pt is not back from procedure. Pt's in room asked that CM come back when pt is back from procedure. Informed her that CM will come by tomorrow morning.
--- NOTE | 2018-12-20 18:34 | NUR ---
Hemostasis to right groin. Dresing applied per unit protocol. Pressure dressing applied by Wendy Hernandes RN. Patient awake, alert and orientedx3. Respirations even and unlabored on room air. No distress noted at this time. Patient appears to have tolerated right sheath removal well. Patient being prepared to be transferred from clinical lab assistant ACU bay 10 to Room 206.
--- NOTE | 2018-12-20 19:00 | NUR ---
PT IS BACK FROM DIRECT MARKETING INTERN. BEDSIDE SHIFT REPORT GIVEN TO THE STALLION KEEPER RN. PT DENIED FURTHER NEEDS. AT BEDSIDE.
--- NOTE | 2018-12-20 19:34 | NUR ---
Sheath pulled at 1811 by myself with Tomi Campos RN at bedside for support. Pressure held to RFA for 20 minutes. No hematoma or bleeding noted. Hemostasis achieved upon sheath removal. No other issues noted. Report given to nurse Kent and nurse at bedside to visualize groin.
[2018-12-20] MEDS: ATORVASTATIN 40 MG TAB PO SCH (21:05)
[2018-12-20] MEDS: CEFTRIAXONE SOD 1 GM/NS 50 ML 50 ML IV SCH (23:26)
[2018-12-21] VITALS: BP 126/67
[2018-12-21 00:19] VITALS: BP 126/67
--- NOTE | 2018-12-21 01:42 | NUR ---
patient off bedrest. right groin dressing c/d/i. patient sitting on side of bed with . Pedal pulse palpable weak.
[2018-12-21 04:00] VITALS: BP 148/72
--- NOTE | 2018-12-21 07:14 | NUR ---
pt alert resp even and unlabored and no distress noted, pt able to make need known, family member at bedside, call light in reach.
[2018-12-21] MEDS: INSULIN REGULAR, HUMAN 100 UNIT/1 ML 3ML VIAL SQ SCH ×2 (07:30→11:30)
[2018-12-21] MEDS: SEVELAMER CARBONATE 800 MG TAB PO SCH ×2 (08:00→12:54)
[2018-12-21 08:04] VITALS: BP 149/70
[2018-12-21] MEDS: DOCUSATE SODIUM 100 MG CAP PO SCH (08:44)
[2018-12-21] MEDS: FUROSEMIDE INJ 10 MG/ML 4 ML VIAL IV SCH (08:44)
[2018-12-21] MEDS: ASPIRIN 81 MG CHEW TAB PO SCH (08:44)
[2018-12-21] MEDS: ALLOPURINOL 100 MG TAB PO SCH (08:44)
[2018-12-21] MEDS: TICAGRELOR 90 MG TABLET PO SCH (08:44)
[2018-12-21] MEDS: METOPROLOL TARTRATE 50 MG TAB PO SCH (09:00)
--- NOTE | 2018-12-21 09:41 | NUR ---
dialysis nurse her to start dialysis.
--- NOTE | 2018-12-21 11:18 | Progress Note ---
DATE: 12/21/2018 Cardiology Progress Note SUBJECTIVE: No chest pain or shortness of breath. Dialysis ongoing today. OBJECTIVE: VITAL SIGNS: Temperature 97.6, heart rate 64, blood pressure 149/70, respiratory rate 18, O2 saturation 100%, and BMI 28.7. GENERAL: In no acute distress, alert. NECK: No JVD. CHEST: Clear to auscultation. CARDIOVASCULAR: Regular rate and rhythm. Normal S1, S2. No S3 or S4. ABDOMEN: Soft. Bowel sounds positive. EXTREMITIES: Trace edema. CARDIOVASCULAR MEDICATIONS: Reviewed. 1. Brilinta 90 mg every 12 hours. 2. Metoprolol tartrate 50 mg every 12 hours. 3. Atorvastatin 80 mg at bedtime. 4. Aspirin 81 mg daily. LABORATORY DATA: Studies reviewed. Sodium 139, potassium 4.2, chloride 99, bicarbonate 28, BUN 39, creatinine 7.2, and glucose 131. White blood cells 10.9, hemoglobin 8.5, and platelets 211. INR 0.9, PT 13, and PTT 26.6. AST 14, ALT 20, alkaline phosphatase 79, and total bilirubin 0.3. ASSESSMENT AND PLAN: A 63-year-old man with, 1. Multivessel coronary artery disease, status post left anterior descending artery and right coronary artery drug-eluting stent, percutaneous coronary intervention. 2. Ventricular tachycardia. 3. Atrial fibrillation. 4. Anemia. 5. End-stage renal disease. 6. Diabetes mellitus. 7. Hypertension. 8. Dyslipidemia. 9. Pulmonary fibrosis. 10. Chronic systolic heart failure with left ventricular ejection fraction 35% to 40%. RECOMMENDATIONS: 1. Continue current cardiovascular medications. 2. Outpatient followup advised in 2-4 weeks post discharge. Ashu Donaldson MD AFV/MODL /[id number]
[2018-12-21 11:22] VITALS: BP 149/70
--- NOTE | 2018-12-21 12:25 | NUR ---
SPOKE TO PT AND AT BEDSIDE. THEY STATE THEY DO NOT WANT HOME HEALTH AT THIS TIME.
[2018-12-21 12:31] VITALS: BP 160/65
--- NOTE | 2018-12-21 13:50 | NUR ---
dialysis finished, 1.8 liters liter taken off, pt tolerated well.
[2018-12-21] MEDS ORDERED: ASPIRIN CHEW81 MG PO (14:52)
[2018-12-21] MEDS ORDERED: RENVELA800 MG PO (14:52)
[2018-12-21] MEDS ORDERED: METOPROLOL TART50 MG PO (14:52)
[2018-12-21] MEDS ORDERED: BRILINTA90 MG PO (14:52)
--- NOTE | 2018-12-21 15:50 | NUR ---
pt discharged home, pt and were educated medication, both verbalized understanding. both iv sites removed, no swelling no redness to site
--- NOTE | 2018-12-22 04:39 | Discharge Summary ---
PRIMARY CARE PHYSICIAN: Jayashree Sanchez MD, at [facility] in [place]. FINAL DIAGNOSES: 1. Acute respiratory failure. 2. Poq-EM-hdlwouxeh myocardial infarction with atrial fibrillation and supraventricular tachycardias. 3. New diagnosis of end-stage renal disease, on dialysis. 4. Diabetes. 5. History of pulmonary fibrosis. 6. Rheumatoid arthritis. 7. Gout. 8. Glaucoma. 9. Anemia. CONSULTANTS: 1. Dr. Olson with Cardiology. 2. Dr. Oneal with Nephrology. 3. Dr. Delano Calixto with EP. PROCEDURES: 1. Left heart catheterization, status post PCI to LAD, then RCA this week. 2. Tunneled cath placed for dialysis. HISTORY: Per HPI. HOSPITAL COURSE: This is a 63-year-old male, who presented with acute respiratory failure. He was started on aggressive diureses with IV Lasix. He was transferred to the ICU initially for close monitoring. He was placed on BiPAP to help with acute respiratory failure. He then had atrial fibrillation with SVTs and chest pain. Cardiology was consulted for status post PCI in the LAD last week. He then had RCA early yesterday. He has had CKD with worsening creatinine. Nephrology has decided to put a tunneled cath and was declared ESRD and has been started on dialysis. His shortness of breath has resolved. Outpatient dialysis has been set up. He refused home health physical therapy for now. He is stable, afebrile, vital signs stable. We will discharge home to follow up with PCP in 1 to 2 weeks, and dialysis per appointment. PHYSICAL EXAMINATION: VITAL SIGNS: Temperature 97.5, pulse is 68, respirations 20, blood pressure 160/65, and pulse ox is 100% on room air. GENERAL: In no acute distress. HEENT: Normocephalic and atraumatic. NECK: Supple and midline. CARDIOVASCULAR: No chest pain. LUNGS: Decreased breath sounds. ABDOMEN: Soft and nontender. NEUROLOGIC: Alert, awake, and oriented x3. MUSCULOSKELETAL: Moves all extremities. No edema. SKIN: Dry and intact. CONDITION AT DISCHARGE: Stable and improved. DISCHARGE MEDICATIONS: Discontinue medications. See medication reconciliation list. FOLLOWUP: With PCP, Cardiology in 1 to 2 weeks. HD per appointment. TIME SPENT: Total time of discharge is 35 minutes. Dictated by ROB Danielson Yiching Ric Vernon MD MY/MODL /[id number] cc: Jayashree Sanchez MD Seen and examined on 12/21/2018, updated at the [facility]. Agree with the findings and plan as documented by ROB Gaming. NACHO
== END 2018-12-21 15:41 | disposition home or self-care (01) | DRG 246 ==
LOC: ER 19:15 → ERHOLD 23:16 → ICU 23:58 → IMCU 12-13 14:00 → ICU 12-14 11:35 → IMCU 12-17 17:20 → MED/SURG2 12-19 21:54
PROVIDERS: ADMIT Internal Medicine; ATTEND Internal Medicine
PROC: 5A09357 Assistance with Respiratory Ventilation, Less than 24 Consecutive Hours, Continuous Positive Airway Pressure (ICD-10-PCS; 2018-12-12)
PROC: 30233N1 Transfusion of Nonautologous Red Blood Cells into Peripheral Vein, Percutaneous Approach (ICD-10-PCS; 2018-12-13)
PROC: 0JHD3XZ Insertion of Tunneled Vascular Access Device into Right Upper Arm Subcutaneous Tissue and Fascia, Percutaneous Approach (ICD-10-PCS; 2018-12-13)
PROC: 02H633Z Insertion of Infusion Device into Right Atrium, Percutaneous Approach (ICD-10-PCS; 2018-12-13)
PROC: B548ZZA Ultrasonography of Superior Vena Cava, Guidance (ICD-10-PCS; 2018-12-13)
PROC: 5A1D70Z Performance of Urinary Filtration, Intermittent, Less than 6 Hours Per Day (ICD-10-PCS; 2018-12-13)
PROC: 5A1D70Z Performance of Urinary Filtration, Intermittent, Less than 6 Hours Per Day (ICD-10-PCS; 2018-12-15)
PROC: 027034Z Dilation of Coronary Artery, One Artery with Drug-eluting Intraluminal Device, Percutaneous Approach (ICD-10-PCS; principal; 2018-12-16)
PROC: 4A023N7 Measurement of Cardiac Sampling and Pressure, Left Heart, Percutaneous Approach (ICD-10-PCS; 2018-12-16)
PROC: B2111ZZ Fluoroscopy of Multiple Coronary Arteries using Low Osmolar Contrast (ICD-10-PCS; 2018-12-16)
PROC: B2151ZZ Fluoroscopy of Left Heart using Low Osmolar Contrast (ICD-10-PCS; 2018-12-16)
PROC: 5A1D70Z Performance of Urinary Filtration, Intermittent, Less than 6 Hours Per Day (ICD-10-PCS; 2018-12-16)
PROC: 5A1D70Z Performance of Urinary Filtration, Intermittent, Less than 6 Hours Per Day (ICD-10-PCS; 2018-12-18)
PROC: 027034Z Dilation of Coronary Artery, One Artery with Drug-eluting Intraluminal Device, Percutaneous Approach (ICD-10-PCS; 2018-12-20)
PROC: 5A1D70Z Performance of Urinary Filtration, Intermittent, Less than 6 Hours Per Day (ICD-10-PCS; 2018-12-21)
DX: I13.2 Hypertensive heart and chronic kidney disease with heart failure and with stage 5 chronic kidney disease, or end stage renal disease (principal); I21.4 Non-ST elevation (NSTEMI) myocardial infarction; N18.6 End stage renal disease; J96.21 Acute and chronic respiratory failure with hypoxia; I50.23 Acute on chronic systolic (congestive) heart failure; N17.9 Acute kidney failure, unspecified; N30.00 Acute cystitis without hematuria; I47.2 Ventricular tachycardia; E11.22 Type 2 diabetes mellitus with diabetic chronic kidney disease; M10.9 Gout, unspecified; Z87.891 Personal history of nicotine dependence; Z88.0 Allergy status to penicillin; Z83.3 Family history of diabetes mellitus; Z82.49 Family history of ischemic heart disease and other diseases of the circulatory system; E83.51 Hypocalcemia; D63.1 Anemia in chronic kidney disease; J84.10 Pulmonary fibrosis, unspecified; Z99.81 Dependence on supplemental oxygen; M06.9 Rheumatoid arthritis, unspecified; H40.9 Unspecified glaucoma; E83.42 Hypomagnesemia; E78.5 Hyperlipidemia, unspecified; I48.0 Paroxysmal atrial fibrillation; E11.21 Type 2 diabetes mellitus with diabetic nephropathy; M05.10 Rheumatoid lung disease with rheumatoid arthritis of unspecified site; I25.10 Atherosclerotic heart disease of native coronary artery without angina pectoris; E66.01 Morbid (severe) obesity due to excess calories; E83.39 Other disorders of phosphorus metabolism; Z68.35 Body mass index [BMI] 35.0-35.9, adult; G47.33 Obstructive sleep apnea (adult) (pediatric); K59.00 Constipation, unspecified; Z79.82 Long term (current) use of aspirin; Z79.4 Long term (current) use of insulin; Z79.52 Long term (current) use of systemic steroids
CPT/HCPCS: 36415; 36558; 71045; 74470; 76937; 77001; 80048; 80053; 81001; 82270; 82306; 82550; 82553; 82728; 82948; 83540; 83735; 83880; 83970; 84100; 84466; 84484; 85025; 85610; 85730; 86704; 86705; 86850; 86900; 86920; 87340; 90962; 92928; 93005; 93306; 93971; 94660; 96360; 97139; 99152; 99153; 99284; C1766; C1769; C1874; J0583; J0610; J0696; J1644; J1817; J1940; J2001; J2150; J2250; J2405; J2550; J3010; J3475; J7030; J7050; P9016; Q9967

== ENCOUNTER 2018-12-22 18:21 | Inpatient (IN) | payer MEDICARE ==
[~2018-12-22] VITALS: Ht 167.6 cm; Wt 78.0 kg
[~2018-12-22 18:21] MED LIST changes: +ARTIFICIAL TEAR15 ML OP; +ASPIRIN CHEW81 MG PO; +BRILINTA90 MG PO; +BRIMONIDINE TAR10 ML OP; +LATANOPROST 0.7.5 ML OP; +METOPROLOL TART50 MG PO; +NEVANAC3 ML OP; +PRED-G 1% EYE DR5 ML OP; +RENVELA800 MG PO
[2018-12-22] MEDS ORDERED: METOPROLOL TARTRATE INJ 1 MG/ML VIAL IV ONE (19:00)
[2018-12-22] MEDS ORDERED: SODIUM CHLORIDE 0.9% 500ML 500 ML IV ONE (19:00)
[2018-12-22 19:03] LABS: BASOPHILS # (AUTO) 0.1 (0.0-0.1); BASOPHILS % 0.6 % (0.0-1.0); EOSINOPHILS # (AUTO) 0.3 (0.0-0.4); EOSINOPHILS % 2.8 % (0.0-6.0); HEMATOCRIT 31.3 % (38.2-49.6); HEMOGLOBIN 9.8 g/dL (14.0-18.0); LYMPHOCYTES # (AUTO) 1.9 (1.0-3.2); LYMPHOCYTES % 18.6 % (18.0-39.1); MEAN CORPUSCULAR HGB CONC 31.3 g/dL (31-35); MEAN CORPUSCULAR VOLUME 86.2 fL (81-99); MONOCYTES # (AUTO) 0.8 (0.2-0.8); MONOCYTES % 8.1 % (4.4-11.3); NEUTROPHILS # (AUTO) 7.2 (2.1-6.9); NEUTROPHILS % 69.5 % (38.7-80.0); PLATELET COUNT 296 x10e3/uL (140-360); RED BLOOD COUNT 3.63 x10e6/uL (4.3-5.7); RED CELL DISTRIBUTION WIDTH 14.7 % (11.7-14.4)
[2018-12-22] MEDS ORDERED: METOPROLOL TARTRATE INJ 1 MG/ML VIAL ONE (19:04)
--- NOTE | 2018-12-22 19:08 | Diagnostic Imaging Report ---
Examination: Single AP view of the chest. COMPARISON: None. INDICATION: Tachycardia DISCUSSION: Lines/tubes: Dialysis catheter with tip overlying the 2 atrial junction. Lungs: Central venous congestion. No edema. Pleura: There is no pleural effusion or pneumothorax. Heart and mediastinum: The heart and the mediastinum are unremarkable. Bones and soft tissues: No acute bony abnormalities. IMPRESSION: 1. No acute cardiopulmonary abnormalities. Signed by: Dr. Ric Lopez M.D. on 12/22/2018 7:04 PM
[2018-12-22 19:10] LABS: INR 0.85; PROTHROMBIN TIME 12.1 seconds (11.9-14.5)
[2018-12-22 19:11] LABS: PARTIAL THROMBOPLASTIN TIME 43.6 seconds (23.8-35.5)
[2018-12-22 19:20] LABS: ALBUMIN 2.7 g/dL (3.5-5.0); ALBUMIN/GLOBULIN RATIO 0.5 (0.8-2.0); ANION GAP 17.6 mmol/L (8-16); CREATININE, SERUM 2.55 mg/dL (0.72-1.25); MAGNESIUM 1.9 MG/DL (1.3-2.1); POTASSIUM 3.6 mmol/L (3.5-5.1)
[2018-12-22 19:27] LABS: CREATINE KINASE MB 1.2 ng/mL (0-5.0)
[2018-12-22] MEDS ORDERED: DEXTROSE 50% SYRINGE 50 ML IV PRN (20:00)
[2018-12-22] MEDS ORDERED: SODIUM CHLORIDE FLUSH 10 ML SYR INJ PRN (20:00)
[2018-12-22 20:23] LABS: BILIRUBIN,URINE NEGATIVE (NEGATIVE); COLOR,URINE YELLOW (YELLOW); KETONES,URINE NEGATIVE (NEGATIVE); LEUKOCYTE ESTERASE ,URINE NEGATIVE (NEGATIVE); NITRITE,URINE NEGATIVE (NEGATIVE); URINE UROBILINOGEN 0.2 mg/dL (0.2 - 1)
[2018-12-22 20:29] LABS: PROTEIN,URINE DIPSTICK 2+ (NEGATIVE)
[2018-12-22 20:38] LABS: AMORPHOUS SEDIMENT,URINE MODERATE (FEW); BACTERIA,URINE MANY /HPF; CLARITY,URINE SL CLOUDY (CLEAR); EPITHELIAL CELLS,URINE RARE /LPF; WBC,URINE (MAN) 0-5 /HPF (0-5)
[2018-12-22 21:00] VITALS: BP 143/66
--- NOTE | 2018-12-22 21:20 | NUR ---
2015: Pt's heart rate converted to normal sinus rhytm with a rate of 75 at this time. Pt remains alert and oriented x4; denies any pain or shortness of breath. Monitoring continues
--- NOTE | 2018-12-22 21:26 | NUR ---
Paged Dr. Rodriguez regarding patients request for CPAP. New order for CPAP @ night and while sleeping CPAP of 10 & 40%. RT at bedside and CPAP placed on patient. He appears comfortable, denies pain, C/P, states he feels better now that his rhythm is normal.
[2018-12-22 22:00] VITALS: BP 125/61
[2018-12-22] MEDS: INSULIN REGULAR, HUMAN 100 UNIT/1 ML 3ML VIAL SQ SCH (22:09)
[2018-12-23] VITALS (8 sets, daily range): BP systolic 109–138; BP diastolic 52–82
[2018-12-23 05:51] LABS: BASOPHILS % 0.4 % (0.0-1.0); EOSINOPHILS # (AUTO) 0.4 (0.0-0.4); EOSINOPHILS % 3.9 % (0.0-6.0); HEMATOCRIT 25.4 % (38.2-49.6); LYMPHOCYTES # (AUTO) 1.6 (1.0-3.2); LYMPHOCYTES % 17.1 % (18.0-39.1); MEAN CORPUSCULAR HEMOGLOBIN 27.5 pg (28-32); MEAN CORPUSCULAR HGB CONC 31.5 g/dL (31-35); MEAN CORPUSCULAR VOLUME 87.3 fL (81-99); MONOCYTES # (AUTO) 1.1 (0.2-0.8); MONOCYTES % 11.3 % (4.4-11.3); NEUTROPHILS # (AUTO) 6.3 (2.1-6.9); NEUTROPHILS % 66.7 % (38.7-80.0); PLATELET COUNT 239 x10e3/uL (140-360); RED BLOOD COUNT 2.91 x10e6/uL (4.3-5.7)
[2018-12-23 06:09] LABS: ALBUMIN 2.2 g/dL (3.5-5.0); ALBUMIN/GLOBULIN RATIO 0.5 (0.8-2.0); ANION GAP 13.7 mmol/L (8-16); CHOL/HDL RATIO 2.6 (3.9-4.7); CREATININE, SERUM 4.29 mg/dL (0.72-1.25); POTASSIUM 3.7 mmol/L (3.5-5.1)
[2018-12-23 06:35] LABS: CREATINE KINASE MB 2.9 ng/mL (0-5.0)
[2018-12-23] MEDS: INSULIN REGULAR, HUMAN 100 UNIT/1 ML 3ML VIAL SQ SCH ×4 (08:00→21:35)
[2018-12-23] MEDS ORDERED: OPTH OP PRN (10:45)
[2018-12-23] MEDS ORDERED: DEXTROSE 50% SYRINGE 50 ML IV PRN (10:45)
[2018-12-23] MEDS ORDERED: NEPAFENAC 0.1% OP PRN (10:45)
[2018-12-23] MEDS ORDERED: KETOROLAC TROMETHAMINE 0.5% OP SOLN 3 ML BTL OP PRN (11:15)
[2018-12-23] MEDS: SEVELAMER CARBONATE 800 MG TAB PO SCH ×2 (12:07→17:11)
[2018-12-23 14:14] LABS: CREATINE KINASE MB 1.8 ng/mL (0-5.0)
[2018-12-23] MEDS ORDERED: ASPIRIN 81 MG CHEW TAB PO ONE (14:31)
[2018-12-23] MEDS ORDERED: CLOPIDOGREL BISULFATE 75 MG TAB PO ONE (14:45)
[2018-12-23] MEDS ORDERED: CLOPIDOGREL BISULFATE 300 MG TAB-DO NOT STOCK PO ONE (14:45)
[2018-12-23] MEDS: APIXABAN 5 MG TABLET PO SCH (14:47)
[2018-12-23] MEDS: GENTAMICIN OP SCH ×2 (15:00→21:24)
[2018-12-23] MEDS: PREDNISOLONE OP SCH ×2 (15:00→21:24)
--- NOTE | 2018-12-23 16:12 | NUR ---
Nutrition Screen Note RD Recommendation for Physician: -Recommend renal/diabetic diet Plan of Care: RD following, monitoring for tolerance and adequacy Nutrition reason for involvement: MST Primary Diagnose(s):anemia, atrial flutter with rapid ventricular response, and acute on chronic renal failure PMH: HTN, high cholesterol, CKD, pulmonary fibrosis, rheumatoid arthritis, gout, glaucoma, and type 2 diabetes Ht: 66 in Wt: 172 lb BMI: 27.8 kg/m2 IBW:[address] Assessment: (12/23/18) Chart reviewed. Labs and meds reviewed. Pt is a 63 year old male admitted with anemia, atrial flutter with rapid ventricular response, and acute on chronic renal failure. Spoke to pt and family members. Pt reported he has a good appetite and has been eating all of his meals. Per documentation in chart, pt consumed 100% of dinner meal yesterday. Pts weight typically fluctuates due to fluid. Of note, pt is on dialysis. No N/V/D/C npted. Family members and pt were interested in receiving nutrition education materials regarding a heart healthy diet as well as nutrition for gout. Will continue to monitor Current Diet: ADA Diet Malnutrition Evaluation (12/23/18) The patient does not meet criteria for a specified degree of malnutrition at this time. Will re-evaluate at follow-up as appropriate. Diet Education Needs Assessment: Pt and family members were interested in nutrition information regarding a heart healthy diet and for gout Learner(s): Pt, family members Barriers: No barrier identified Cultural/Language Modifications: No cultural/language modifications noted. Readiness: Pt and family members were eager to learn Method: explanation/ discussion, handout Topics: heart healthy diet and nutrition information for gout Understanding/Compliance: Pt and family members verbalized understanding. Nutrition Care Level: Low Signed: Brooke Massey, RD, LD
[2018-12-23] MEDS ORDERED: APIXAB 2.5 MG TABLET PO SCH (17:00)
[2018-12-23] MEDS: METOPROLOL TARTRATE 25 MG TAB PO SCH (17:11)
--- NOTE | 2018-12-23 17:33 | NUR ---
NOTIFIED OF NEW CONSULT
--- NOTE | 2018-12-23 17:37 | History and Physical ---
PRIMARY CARE PHYSICIAN: Dr. Jayashree Sanchez at [facility] in [place]. CHIEF COMPLAINT: Atrial fibrillation with RVR. HISTORY OF PRESENT ILLNESS: This is a 63-year-old male, who was noted to have atrial fibrillation with RVR in dialysis. He reported that he had no chest pain, but some palpitations. He denied any chest pain, radiation of left arm tingling or numbness, no headache, dizziness, or vision changes. He states was feeling normal when the staff at the dialysis center told that his heart rate is in the 150s and sustaining for about 50 minutes. He denies any nausea, vomiting, or change in LOC. He was recently discharged about 2 days ago for acute respiratory distress and pulmonary edema due to advanced CKD. He was deemed end-stage renal disease and was initiated on dialysis and yesterday was his first outpatient dialysis session. Upon arrival to the ER, he had been fluctuating with his heart rate up and down, so he is admitted in ICU for close monitoring. PAST MEDICAL HISTORY: 1. Hypertension. 2. Diabetes type 2. 3. ESRD. 4. Pulmonary fibrosis. 5. Rheumatoid arthritis. 6. Gout. 7. Glaucoma. PAST SURGICAL HISTORY: Eye surgeries, cataracts to both eyes and bronchoscopy. FAMILY MEDICAL HISTORY: Mother has diabetes and does not know of his father's medical conditions. SOCIAL HISTORY: He quit smoking and use of alcohol in January of 2018. He denies any illicit drug use and he is a retired . ALLERGIES: HE IS ALLERGIC TO PENICILLIN. REVIEW OF SYSTEMS: GENERAL: No fatigue. HEENT: No trauma to the head. No mouth sores. LUNGS: No shortness of breath or cough. CARDIOVASCULAR: Palpitations, but no chest pain. GI: No nausea or vomiting. NEUROLOGIC: Alert and oriented. No dizziness. MUSCULOSKELETAL: Moves all extremities. No edema. SKIN: Dry. PHYSICAL EXAMINATION: VITAL SIGNS: Temperature 98.4, pulse is 61, respirations 14, blood pressure 113/55, and pulse ox is 100% on 2.5 L of nasal cannula. GENERAL: No acute distress. HEENT: Normocephalic and atraumatic. NECK: Supple and midline. LUNGS: Decreased breath sounds. CARDIOVASCULAR: Regular rate and rhythm. GI: Nontender and soft. NEUROLOGIC: Alert, awake, and oriented x3. MUSCULOSKELETAL: Moves all extremities. SKIN: Dry and intact. PSYCH: Calm. LABORATORY DATA: WBC 9.38, hemoglobin 8.0, hematocrit 25.4, and platelets 239. Sodium 139, potassium is 3.7, carbon dioxide is 31, creatinine is 4.29, estimated GFR is 14, and glucose 185. Lactic acid 1.5. Calcium 9.0. Troponin first set was 0.221, second set this morning is 1.063. Triglycerides 143, cholesterol 154, LDL 65, and HDL 60. Coagulation; PT 12.1 and APTT 42.6. Urine slightly cloudy with 2+ protein and glucose, no leukocyte esterase, and with many bacteria. Blood culture pending. Urine culture pending. IMAGING DATA: Chest x-ray, no acute cardiopulmonary process. IMPRESSION AND PLAN: 1. Episode of atrial fibrillation with rapid ventricular response. Sustained for a few minutes while in dialysis, now normal sinus rhythm with a heart rate of 60s. Had received metoprolol IV in the ER and in the ICU overnight. Cardiology and EP consulted. 2. Anemia of chronic disease. Hemoglobin is stable at 9. We will continue to monitor. 3. End-stage renal disease. We will consult Nephrology for dialysis. 4. History of hypertension, now stable. We will continue low dose of metoprolol to help also with the heart rate control. 5. Diabetes. We will continue with sliding scale insulin coverage. 6. Elevated troponin. He denies any chest pain. We will continue to monitor on tele and defer to Cardiology. 7. History of pulmonary fibrosis, stable. He is oxygen-dependent. We will continue BiPAP at night. 8. History of rheumatoid arthritis. Pain management as needed. 9. History of gout. We will continue on allopurinol. 10. Glaucoma. We will continue his eye drops. 11. Deep vein thrombosis prophylaxis. No chemical anticoagulation pending possible cardiac workup or EP workup. Discussed plan with Dr. Vernon and further recommendations to follow. Dictated by ROB Danielson Gabe Vernon MD MY/MODL /[id number] Seen and examined on 12/23/2018, discussed with Dr. Olson, continue asa, plavix load and start eliquis. Agree with the findings and plan as documented by ROB Gaming. NACHO
--- NOTE | 2018-12-23 19:28 | Consultation ---
DATE OF CONSULTATION: 12/23/2018 HISTORY OF PRESENT ILLNESS: Mr. Yves Joseph is well known to me, who is a pleasant 63-year-old with end-stage renal disease patient secondary to diabetes, was recently declared end-stage renal disease and went to dialysis, developed tachyarrhythmia. Subsequently sent here, Dr. Olson, an EP physician to see for possible pacemaker. He is currently lying supine, completely asymptomatic. Denies shortness of breath, nausea, or vomiting. He did complete his dialysis treatment yesterday. ALLERGIES: HE IS ALLERGIC TO PENICILLIN. CURRENT MEDICATIONS: Please see MAR. SOCIAL HISTORY: Does not smoke or drink. by bedside. FAMILY HISTORY: Significant for diabetes. PAST MEDICAL HISTORY: Hypertension, end-stage renal disease, diabetes, peripheral neuropathy, coronary artery disease, congestive heart failure, proteinuria, due to diabetic laminar sclerosis. LABORATORY DATA: White count 9.8, hemoglobin 8 with a potassium 3.7, creatinine 4.29. Troponin I 1.06. PHYSICAL EXAMINATION: GENERAL: Awake, alert, lying supine, in no apparent distress. VITAL SIGNS: Blood pressure 130/63, pulse 63, afebrile, oxygen saturation 100% on 2 L nasal cannula. HEAD AND NECK: Cornea clear. Oral mucosa moist. Neck veins flat. No JVD. LUNGS: Relatively clear. No rales or rhonchi. HEART: S1, S2 audible. ABDOMEN: Soft, nontender. No visceromegaly. EXTREMITIES: Lower extremity examination shows no edema. IMPRESSION: 1. End-stage renal disease, stable electrolytes. No evidence of fluid overload. 2. Underlying tachyarrhythmia. 3. Underlying coronary artery disease. 4. Diabetes. 5. End-organ damage. 6. History of congestive heart failure. PLAN: I defer workup to Dr. Olson and Dr. Saini. I will arrange for dialysis tomorrow morning. MD JIM Smith/VASQUEZ /[id number]
[2018-12-23] MEDS ORDERED: NON-FORMULARY MEDICATION (Atorvastatin Calcium 80 MG) PO SCH (21:00)
[2018-12-23] MEDS ORDERED: NON-FORMULARY MEDICATION (Latanoprost/Pf (Latanoprost 0.005% Eye Drop) 1 DROP) OP SCH (21:00)
[2018-12-23] MEDS ORDERED: LATANOPROST(OPTH) 2.5 ML BTL OP SCH (21:00)
[2018-12-23] MEDS ORDERED: ATORVASTATIN 40 MG TAB PO SCH (21:00)
[2018-12-24] VITALS (8 sets, daily range): BP systolic 115–153; BP diastolic 55–70
--- NOTE | 2018-12-24 02:44 | Consultation ---
DATE OF CONSULTATION: 12/23/2018 Cardiology Consultation REFERRING PHYSICIAN: Gabe Vernon MD CONSULTING PHYSICIAN: Ashu Donaldson MD, Interventional Cardiology. REASON FOR CONSULTATION: Atrial fibrillation. HISTORY OF PRESENT ILLNESS: Mr. Joseph is a pleasant 63-year-old man with history of pulmonary fibrosis, diabetes mellitus, coronary artery disease status post LAD and RCA drug-eluting stent and PCI recently done at this institution within a month, history of NSVT, chronic systolic heart failure, paroxysmal atrial fibrillation, hypertension, and ESRD on a recently initiated dialysis, [facility] developing complaints of lightheadedness, palpitations, and shortness of breath associated with an episode of atrial fibrillation with rapid ventricular response. In the ED, he was noted to have atrial fibrillation with RVR with low normal blood pressure reads for which low-dose IV metoprolol assisted in better rhythm control. The patient self converted back to sinus rhythm with resolution of symptoms. He did have small peak in troponin I consistent with a type 2 myocardial infarction in the setting of atrial fibrillation with RVR. His dialysis had to be terminated prematurely given his stable arrhythmia. REVIEW OF SYSTEMS: A 12-system review is negative except for as noted above. PAST MEDICAL HISTORY: As per HPI. ALLERGIES: TO PENICILLIN. SOCIAL HISTORY: No smoking, alcohol, or drugs. FAMILY HISTORY: Noncontributory. PHYSICAL EXAMINATION: VITAL SIGNS: Reviewed. Temperature 99.3, heart rate 60, blood pressure 125/60, respiratory rate 17, and O2 saturation 100%. GENERAL: In no acute distress, alert. NECK: No JVD. CHEST: Clear to auscultation. CARDIOVASCULAR: Regular rate and rhythm. Normal S1 and S2. ABDOMEN: Soft. Bowel sounds positive. EXTREMITIES: Trace edema. Warm distal extremities. CARDIOVASCULAR MEDICATIONS: Reviewed. Eliquis 5 mg every 12 hours, aspirin 81 mg daily, clopidogrel 75 mg daily. Discontinued Brilinta. Atorvastatin 40 mg at bedtime and metoprolol tartrate 25 mg b.i.d. LABORATORY DATA: Studies reviewed. Potassium 3.7, bicarbonate 31, creatinine 4.2, and sodium 139. White blood cells 9.3, hemoglobin 8, and platelets 239. AST 24 and ALT 32. ASSESSMENT AND PLAN: A 63-year-old man presents with paroxysmal atrial fibrillation and type 2 myocardial infarction in the setting of the above. Atrial fibrillation is limiting the patient's ability to tolerate dialysis and he is significantly symptomatic. The patient has a history of NSVT, CAD status post revascularization of LAD and RCA via PCI and pulmonary fibrosis, hypertension, dyslipidemia, and end-stage renal disease. RECOMMENDATIONS: I have discussed with cardiac electrophysiology for atrial fibrillation ablation. The patient would benefit from rhythm control strategy, and is not a good candidate for long-term amiodarone use given his pulmonary fibrosis history, and given his associated CAD, LVH and heart failure limiting options for antiarrhythmics with NSVT history on previous admission, and therefore PVI in an expedited manner is advisable. For now, continue beta-anupam and rate control strategy. Continue Eliquis for thromboembolic risk prevention and continue antiplatelet therapy given recent PCI. Continue statin. I thank Dr. Vernon for the opportunity to participate in the care of this patient. I have discussed with cardiac electrophysiology for possible transfer to higher level of care expedited PVI. MD SID Mcclure/VASQUEZ /[id number]
[2018-12-24 05:25] LABS: BASOPHILS % 0.5 % (0.0-1.0); EOSINOPHILS # (AUTO) 0.5 (0.0-0.4); EOSINOPHILS % 6.2 % (0.0-6.0); HEMOGLOBIN 7.6 g/dL (14.0-18.0); LYMPHOCYTES # (AUTO) 1.6 (1.0-3.2); LYMPHOCYTES % 18.6 % (18.0-39.1); MEAN CORPUSCULAR HEMOGLOBIN 27.2 pg (28-32); MEAN CORPUSCULAR HGB CONC 31.7 g/dL (31-35); MONOCYTES # (AUTO) 0.8 (0.2-0.8); MONOCYTES % 9.2 % (4.4-11.3); NEUTROPHILS # (AUTO) 5.5 (2.1-6.9); PLATELET COUNT 228 x10e3/uL (140-360); RED BLOOD COUNT 2.79 x10e6/uL (4.3-5.7); RED CELL DISTRIBUTION WIDTH 14.9 % (11.7-14.4)
[2018-12-24 05:49] LABS: ANION GAP 14.7 mmol/L (8-16); CALCIUM 8.6 mg/dL (8.4-10.2); CREATININE, SERUM 7.03 mg/dL (0.72-1.25); MAGNESIUM 2.1 MG/DL (1.3-2.1); POTASSIUM 3.7 mmol/L (3.5-5.1)
[2018-12-24 06:18] LABS: PHOSPHORUS 4.7 MG/DL (2.3-4.7)
[2018-12-24] MEDS: INSULIN REGULAR, HUMAN 100 UNIT/1 ML 3ML VIAL SQ SCH ×3 (07:27→16:37)
[2018-12-24] MEDS: APIXABAN 5 MG TABLET PO SCH ×2 (08:02→16:54)
[2018-12-24] MEDS: SEVELAMER CARBONATE 800 MG TAB PO SCH ×3 (08:02→16:54)
[2018-12-24] MEDS: GENTAMICIN OP SCH ×2 (08:02→15:07)
[2018-12-24] MEDS: PREDNISOLONE OP SCH ×2 (08:02→15:07)
[2018-12-24] MEDS ORDERED: CLOPIDOGREL BISULFATE 75 MG TAB PO SCH (09:00)
[2018-12-24] MEDS: METOPROLOL TARTRATE 25 MG TAB PO SCH ×2 (09:00→18:32)
[2018-12-24] MEDS ORDERED: ASPIRIN 81 MG CHEW TAB PO SCH (09:00)
--- NOTE | 2018-12-24 11:16 | Progress Note ---
DATE: 12/23/2018 Cardiology Progress Note SUBJECTIVE: No complaints. Denies chest pain or shortness of breath. In sinus rhythm on telemetry. OBJECTIVE: VITAL SIGNS: Temperature 98.3, heart rate 68, respiratory rate 16, blood pressure 122/55, O2 saturation 99% on nasal cannula. GENERAL: No acute distress, alert. NECK: No JVD. CHEST: Clear to auscultation. CARDIOVASCULAR: Regular rate and rhythm. Normal S1, S2. No S3 or S4. ABDOMEN: Soft, nontender. Bowel sounds positive. EXTREMITIES: Trace edema. CARDIOVASCULAR MEDICATIONS: Eliquis 5 mg b.i.d., clopidogrel 75 mg daily, aspirin 81 mg daily, atorvastatin 80 mg at bedtime, metoprolol tartrate 25 mg b.i.d. LABORATORY DATA: White blood cells 8.9, hemoglobin 7.6, platelets 228, INR 0.8, PTT 43. Sodium 137, potassium 3.7, chloride 98, bicarbonate 28, BUN 29, creatinine 7.03, glucose 137, calcium 8.6, magnesium 2.1, phosphorus 4.7. Serial troponin 0.221, then 1.063, then 0.881. ASSESSMENT: 1. Paroxysmal atrial fibrillation with end-organ damage, type 2 myocardial infarction and limiting tolerance to the dialysis. 2. Coronary artery disease status post left anterior descending artery percutaneous coronary intervention and right coronary artery percutaneous coronary intervention. 3. History of nonsustained ventricular tachycardia. 4. Chronic systolic heart failure. 5. Pulmonary fibrosis. 6. Hypertension. 7. Dyslipidemia. 8. Diabetes mellitus. 9. End-stage renal disease. RECOMMENDATIONS: 1. Continue current cardiovascular medications. 2. EP consulted for expedited PVI. 3. Volume optimization per Dr. Oneal's expertise. MD SID Mcclure/MODL /[id number]
--- NOTE | 2018-12-24 11:17 | NUR ---
ORDERS TO INITIATE TRANSFER TO [facility] UNDER DR YOGI TARIQ FOR CARDIAC ABLATION BY DR MITCH WINTER CALLED [facility] PH [phone] SPOKE WITH SNOW FAXED FACE SHEET TO [phone] CHOICE LETTER SIGNED AND ON CHART MOT INITIATED AND ON CHART NURSE NOTIFIED AND AWARE OF PENDING BED
--- NOTE | 2018-12-24 12:30 | NUR ---
Visit made by the Spiritual Care Department Pastoral Visitor, Leena Monzon. PV provided pastoral presence, prayer, hospitality, communion, and supportive listening. Pastoral Visitor informed pt/family of the scope of Auxiliary Equipment Tender Services and availability. LUISITO WATSON Variety Performer Spiritual Care Department O: [phone] Pager: [phone] ([phone] number calling from)
--- NOTE | 2018-12-24 15:02 | Consultation ---
DATE OF CONSULTATION: 12/24/2018 HISTORY OF PRESENT ILLNESS: This is a 63-year-old gentleman, known to our service for history of paroxysmal atrial fibrillation, highly symptomatic, he was admitted to ICU recently and at that time, he required IV medicines and he was found to have end-stage renal disease, started on hemodialysis, also he has pulmonary fibrosis reason why the antiarrhythmic therapies are limited, and he had elevated troponins at that time, then he was discharged home with a plan of ablation for atrial fibrillation as an outpatient. However, he presented again yesterday with atrial fibrillation and atrial flutter with rapid ventricular response. He was very symptomatic, required ICU admission again in critical condition. However, he has converted to sinus rhythm, currently he feels slightly better, still having shortness of breath. We were consulted for further recommendations. REVIEW OF SYSTEMS: Constitutional: As per HPI. CARDIOVASCULAR: As per HPI. RESPIRATORY: As per HPI. GASTROINTESTINAL: Negative. All other systems negative. PAST MEDICAL HISTORY: End-stage renal disease, on hemodialysis. SURGICAL HISTORY: Dialysis catheter. PHYSICAL EXAMINATION: VITAL SIGNS: Blood pressure 138/60, pulse 80, respirations 24, and O2 sats 94%. GENERAL: No acute distress. HEENT: Moist mucous membranes. CARDIOVASCULAR: Regular. RESPIRATORY: Clear with crackles at bases. ABDOMEN: Soft, nontender. MUSCULOSKELETAL: 2+ distal pulses. LABORATORY STUDIES: EKG; atrial flutter and atrial fibrillation with rapid ventricular response, currently sinus rhythm. IMPRESSION: 1. Paroxysmal atrial flutter and atrial fibrillation, highly symptomatic, requiring ICU admission in critical condition, elevation of troponins refractory to current medical therapy. 2. Pulmonary fibrosis. 3. End-stage renal disease. RECOMMENDATIONS: I had a long discussion with the patient. Initial plan was to do the ablation as an outpatient. First of all, he would benefit from ablation due to antiarrhythmic therapy is limited due to pulmonary condition and renal disease, however, at this time since he requires ICU admission with these symptoms recommend to do these as inpatient. Otherwise, it will be not ideal for him to be discharged and come back with another episode like this. Most reasonable to perform the procedure as an inpatient, however this hospital does not have ablation capabilities and we will start a transfer to a hospital with ablation capabilities and we will plan for pulmonary vein isolation under general anesthesia. This case was discussed with the patient and family, went over benefits and risks. The patient voices understanding and wishes to proceed. Also discussed with nursing staff, case management involved, discussed with primary construction equipment operator, Dr. Olson. Thank you for letting us participate in Mr. Joseph's health care. We will start arrangements for possible transfer. MD NORBERTO Combs/MODL /[id number]
--- NOTE | 2018-12-24 16:12 | NUR ---
Patient transferring to [facility] for MARYLIN and Ablation after dialysis is completed. Patient received a bed in room 2091, Dr. Vernon is accepting MD and is aware of transfer. Report called to Tomi PULIDO. RN informed that patient on blood thinners and will need to clarify with MD's about when to hold medications. Will continue to monitor the patient at this time. Ambulance coming to transport patient at 1700.
[2018-12-24] MEDS ORDERED: SODIUM CHLORIDE 0.9% 1000ML 2,000 ML IV PRN (16:45)
[2018-12-24] MEDS ORDERED: HEPARIN SOD (PORCINE) 1000 UNIT/ML SDV IV PRN (16:45)
--- NOTE | 2018-12-24 17:00 | NUR ---
2L removed during dialysis today.
--- NOTE | 2018-12-24 17:24 | Progress Note ---
DATE: 12/24/2018 CONSULTANTS: 1. Dr. Dent with Nephrology. 2. Dr. Olson with Cardiology. 3. Dr. Saini with EP. CHIEF COMPLAINT: Palpitations. SUBJECTIVE: The patient is seen in the room, resting in bed with no acute distress. Remains in ICU for close monitoring. He is seen while receiving dialysis in his room. He denies any chest pain, palpitations, shortness of breath, or change overnight. Discussed with about plans for transfer to [facility] for PVI. PHYSICAL EXAMINATION: VITAL SIGNS: Temperature 98.2, pulse is 65, respirations 16, blood pressure 126/61, pulse ox is 99 on 2 L of nasal cannula. GENERAL: No acute distress. HEENT: Normocephalic, atraumatic. NECK: Supple. LUNGS: With decreased breath sounds. CARDIOVASCULAR: Regular rate and rhythm. GI: Soft and nontender. NEUROLOGIC: Alert, awake, oriented x3. MUSCULOSKELETAL: Moves all extremities. SKIN: Dry and intact. PSYCH: Calm. LABORATORY DATA: WBC 8.39, hemoglobin 7.6, hematocrit 24.0, platelets 228. Sodium 137, potassium 3.7, CO2 28, BUN 29, creatinine 7.03, estimated GFR is 8, calcium is 8.6, magnesium is 2.1. Cultures; urine and blood are negative so far. IMPRESSION AND PLAN: 1. Paroxysmal atrial fibrillation with rapid ventricular response. Now sinus rhythm with a heart rate of 60s. We will continue to monitor in the ICU closely. Cardiology and Electrophysiology consulted. Continue Eliquis 5 p.o. b.i.d. 2. Anemia of chronic disease. Hemoglobin is 7.6. We will continue to monitor closely. 3. End-stage renal disease. Continue dialysis Thursday, Thursday, Thursday per schedule. Nephrology on case. 4. History of hypertension, now stable. We will continue on beta-blockers, metoprolol 25 b.i.d. 5. Diabetes. We will continue with sliding scale insulin coverage. 6. Elevated troponin. No chest pain. Cardiology on the case. 7. History of coronary artery disease with recent percutaneous coronary intervention. We will continue on Plavix and aspirin. 8. History of pulmonary fibrosis, stable. He is oxygen dependent and BiPAP at night. 9. History of rheumatoid arthritis. We will continue pain management as needed. 10. History of gout, on allopurinol. 11. Glaucoma. We will continue his eye drops. 12. Deep vein thrombosis prophylaxis is on Eliquis. Plan is to transfer to [facility] for PVI per Dr. Saini. Dictated by ROB Danielson Claudiaching Ric Vernon MD MY/MODL /[id number] Seen and examined on 12/24/18, updated at the bedside. Agree with the findings and plan as documented by ROB Gaming. NACHO
--- NOTE | 2018-12-24 20:05 | NUR ---
Patient transferred via stretcher with EMS to [facility] for Ablation scheduled on Thursday12/27/18. Patient belongings were all given to , room was checked prior to d/c for personal effects with . Patient with no s/s distress, VSS, patient A&Ox4 and able to verbalize understanding of need for transfer. home health clinical supervisor present and signed MOT. Copies given to EMS and placed in transfer packet for receiving facility.
--- NOTE | 2018-12-25 16:39 | Discharge Summary ---
PRIMARY CARE PHYSICIAN: Dr. Jayashree Sanchez with [facility]. FINAL DIAGNOSES: 1. Paroxysmal atrial fibrillation with rapid ventricular rate. 2. Anemia of chronic disease. 3. End-stage renal disease. 4. Hypertension. 5. Diabetes. 6. History of coronary artery disease, status post PCI. 7. History of pulmonary fibrosis. 8. Rheumatoid arthritis. 9. Gout. 10. Glaucoma. CONSULTANTS: 1. Dr. Dent with Nephrology. 2. Dr. Olson with Cardiology. 3. Dr. Saini with EP. PROCEDURES: None. HISTORY: Per HPI. HOSPITAL COURSE: This is a 63-year-old male, who presented to the ER with complaints of palpitation, he was in dialysis when they noted atrial fibrillation with RVR, heart rate of 150. The patient reported no chest pain, but had palpitation, so is instructed to come to the ER for further evaluation. Upon arrival to the ER, he was continued to have paroxysmal atrial fibrillation with RVR. He was admitted to the ICU for further evaluation and close monitoring. He was started on Eliquis. Heart rate had normalized at this time in the 60s. Cardiology, Dr. Olson and Dr. Saini, EP was consulted. Recommended anticoagulation due to his recent PCI. We will continue with aspirin and Plavix as well. It was recommended that he gets PVI. We will transfer to [facility] for further intervention per EP. During his stay at [facility], there was no further atrial fibrillation. No chest pain. Vital signs stable, afebrile. PHYSICAL EXAMINATION: VITAL SIGNS: Temperature 98.2, pulse is 65, respirations 16, blood pressure 126/61, pulse ox 99% on 2 L of nasal cannula. GENERAL: No acute distress. HEENT: Normocephalic, atraumatic. NECK: Supple. LUNGS: With decreased breath sounds. CARDIOVASCULAR: Regular rate and rhythm. GI: Soft and nontender. NEUROLOGIC: Alert, awake, oriented x3. MUSCULOSKELETAL: Moves all extremities. SKIN: Dry and intact. CONDITION AT DISCHARGE: Stable and improved. DISCHARGE MEDICATIONS: Discontinue medications. Continue all current medications. FOLLOWUP: Follow up with EP and Cardiology at [place]. Okay to transfer. Dictated by ROB Danielson Gabe Vernon MD MY/MODL /[id number] Seen and examined on 12/24/18, updated at the bedside. Agree with the findings and plan as documented by ROB Gaming. ARISD
== END 2018-12-24 20:05 | disposition short-term general hospital (02) | DRG 308 ==
LOC: ER 18:21 → ERHOLD 20:08 → ICU 21:07
PROVIDERS: ADMIT Internal Medicine; ATTEND Internal Medicine
PROC: 5A1D70Z Performance of Urinary Filtration, Intermittent, Less than 6 Hours Per Day (ICD-10-PCS; principal; 2018-12-24)
DX: I48.0 Paroxysmal atrial fibrillation (principal); N18.6 End stage renal disease; I13.2 Hypertensive heart and chronic kidney disease with heart failure and with stage 5 chronic kidney disease, or end stage renal disease; I50.22 Chronic systolic (congestive) heart failure; E11.22 Type 2 diabetes mellitus with diabetic chronic kidney disease; Z99.2 Dependence on renal dialysis; Z79.4 Long term (current) use of insulin; Z79.01 Long term (current) use of anticoagulants; D63.8 Anemia in other chronic diseases classified elsewhere; I25.10 Atherosclerotic heart disease of native coronary artery without angina pectoris; M06.9 Rheumatoid arthritis, unspecified; H40.9 Unspecified glaucoma; M10.9 Gout, unspecified; J84.10 Pulmonary fibrosis, unspecified
CPT/HCPCS: 36415; 71045; 80048; 80053; 80061; 81001; 82550; 82553; 82948; 83605; 83735; 83880; 84100; 84484; 85025; 85610; 85730; 87040; 87086; 93005; 94660; 96372; 99284; J1644; J1817; J7040

== ENCOUNTER 2019-04-01 15:47 | Inpatient (IN) | payer MEDICARE ==
[~2019-04-01] VITALS: Ht 172.7 cm; Wt 79.6 kg
[~2019-04-01 15:47] MED LIST changes: +ACIDOPHILUS1 EAC1 PO; +CALCIUM ACETAT667 M1 PO; +CLOBETASOL PROP15 G1 TOP; +DOCUSATE SODIU100 MG PO; +ELIQUIS2.5 MG PO; -KETOTIFEN FUMARA5 ML; +KETOTIFEN FUMARA5 ML OU; -LEVEMIR100 UNIT/1; +LEVEMIR100 UNIT/1 SC; +MULTAQ400 MG PO; -NOVOLOG100 UNITS1; +NOVOLOG100 UNITS1 SC; +PLAVIX75 MG PO; +SODIUM BICARBO650 MG PO; +TUMS DUAL ACTI1 EACH PO; +VIT D2 PO
[2019-04-01] MEDS ORDERED: DIATRIZOATE MEGL/DIATRIZOA SOD 30 ML BTL PO ONE (16:41)
[2019-04-01 16:48] LABS: BASOPHILS % 0.6 % (0.0-1.0); EOSINOPHILS # (AUTO) 0.2 (0.0-0.4); EOSINOPHILS % 3.8 % (0.0-6.0); HEMOGLOBIN 9.8 g/dL (14.0-18.0); LYMPHOCYTES # (AUTO) 0.6 (1.0-3.2); LYMPHOCYTES % 12.3 % (18.0-39.1); MEAN CORPUSCULAR HGB CONC 30.6 g/dL (31-35); MEAN CORPUSCULAR VOLUME 97.9 fL (81-99); MONOCYTES # (AUTO) 0.5 (0.2-0.8); MONOCYTES % 10.1 % (4.4-11.3); NEUTROPHILS # (AUTO) 3.7 (2.1-6.9); NEUTROPHILS % 72.8 % (38.7-80.0); PLATELET COUNT 230 x10e3/uL (140-360); RED BLOOD COUNT 3.27 x10e6/uL (4.3-5.7); RED CELL DISTRIBUTION WIDTH 16.5 % (11.7-14.4)
[2019-04-01 16:54] LABS: INR 0.98; PARTIAL THROMBOPLASTIN TIME 35.9 seconds (23.8-35.5); PROTHROMBIN TIME 13.6 seconds (11.9-14.5)
[2019-04-01 17:05] LABS: ALBUMIN 3.4 g/dL (3.5-5.0); ALBUMIN/GLOBULIN RATIO 0.9 (0.8-2.0); ANION GAP 14.6 mmol/L (8-16); CALCIUM 9.4 mg/dL (8.4-10.2); CREATININE, SERUM 3.12 mg/dL (0.72-1.25); POTASSIUM 3.6 mmol/L (3.5-5.1)
[2019-04-01 17:11] LABS: CREATINE KINASE MB 1.6 ng/mL (0-5.0)
--- NOTE | 2019-04-01 17:52 | Diagnostic Imaging Report ---
EXAMINATION: CT of the abdomen and pelvis without contrast. TECHNIQUE: Spiral CT images of the abdomen and pelvis were performed from the lung bases to the lesser trochanters. No intravenous contrast was given due to decreased GFR. Oral contrast was given. Coronal and sagittal reformatted images were obtained. COMPARISON: None. CLINICAL HISTORY:Severe constipation for 5 days DISCUSSION: ABSENCE OF INTRAVENOUS CONTRAST DECREASES SENSITIVITY FOR DETECTION OF FOCAL LESIONS AND VASCULAR PATHOLOGY. ABDOMEN/PELVIS: LOWER THORAX: No consolidation or pleural effusion. Extensive atherosclerotic calcification of the coronary arteries HEPATOBILIARY: No focal hepatic lesions. No intra or extrahepatic biliary ductal dilation. GALLBLADDER: No radio-opaque stones or sludge. No wall thickening. SPLEEN: No splenomegaly. PANCREAS: No focal masses or ductal dilatation. ADRENALS: No adrenal nodules. KIDNEYS/URETERS: No renal or ureteral calculi, hydronephrosis or obstruction. 0.9 cm fluid density simple cyst in the anterolateral interpolar right kidney (series 2, image 36). No other contour abnormalities. Mild nonspecific perinephric stranding. PELVIC ORGANS/BLADDER: Bladder is unremarkable, without focal lesions or calculi. Prostate is unremarkable. PERITONEUM/RETROPERITONEUM: No free air or fluid. LYMPH NODES: No intra-abdominal,retroperitoneal, pelvic or inguinal lymphadenopathy. VESSELS: Atherosclerotic calcification of the abdominal aorta and proximal iliac vessels. GI TRACT: Large stool ball in the distal sigmoid and rectum, which measures approximately 6.7 x 6.1 x 12.4 cm, and results in mild dilation of the rectum. There is mild wall thickening and surrounding stranding (series 2, image 72). Mild amount of retained stool in the colon. No bowel dilation. Stomach is grossly unremarkable. BONES AND SOFT TISSUES: No aggressive lytic lesions. Degenerated discs in the lower thoracic and lumbosacral spine, with associated osteophytosis. Small bilateral fat-containing inguinal hernias, right greater than left. IMPRESSION: 1. Findings suggestive of mild stercoral colitis. Large stool ball in the distal sigmoid and rectum results in mild dilation of the rectum and is worrisome for impaction. No perforation. Signed by: Dr. Mauricio Watts M.D. on 04/01/2019 5:49 PM
[2019-04-01] MEDS ORDERED: ONDANSETRON HCL INJ 2MG/ML 2ML 2 MG/ML VIAL IV PRN ×2 (18:45→22:00)
[2019-04-01] MEDS: CEFTRIAXONE SOD 1 GM/NS 50 ML 50 ML IV SCH (19:40)
[2019-04-01] MEDS: METRONIDAZOLE 500MG/NS 100ML 100 ML IV SCH (19:49)
[2019-04-01] MEDS ORDERED: MINERAL OIL 132 ML BTL PR PRN (21:45)
[2019-04-01] MEDS ORDERED: ACETAMINOPHEN 1000 MG/100 ML IV PRN ×2 (21:45→22:00)
[2019-04-01 22:25] VITALS: BP 169/74
[2019-04-01 22:49] VITALS: BP 169/74
[2019-04-02] VITALS (8 sets, daily range): BP systolic 109–189; BP diastolic 70–84
[2019-04-02] MEDS: HYDRALAZINE HCL 20 MG/ML VIAL IV PRN (00:07)
[2019-04-02 00:13] LABS: CREATINE KINASE MB 1.5 ng/mL (0-5.0)
[2019-04-02] MEDS: METRONIDAZOLE 500MG/NS 100ML 100 ML IV SCH ×4 (01:03→19:07)
[2019-04-02] MEDS ORDERED: SODIUM CHLORIDE 0.9% 250ML 250 ML ONE (01:09)
--- NOTE | 2019-04-02 01:16 | NUR ---
SPOKE TO IMTIAZ MAYS NP AT THIS TIME REGARDING FLEET ENEMA ORDER AND MADE HER AWARE THAT PATIENT IS ON DIALYSIS. WASTE COTTON CLEANER SAID OK TO GIVE 2 BOTTLES FLEET ENEMA ORDERED. Addendum: 04/02/19 at 0120 by Darian Watts RN WASTE COTTON CLEANER MADE AWARE THAT MR. COSTELLO IS A DIALYSIS PATIENT.
--- NOTE | 2019-04-02 01:30 | NUR ---
PATIENT REFUSED SECOND BOTTLE OF FLEET ENEMA.
[2019-04-02] MEDS ORDERED: PREDNISONE5 MG PO (04:41)
[2019-04-02] MEDS ORDERED: DICLOFENAC SOD100 G1 TOP (04:41)
[2019-04-02] MEDS ORDERED: METHOTREXATE2.5 MG PO (04:41)
[2019-04-02] MEDS ORDERED: TUMS300 MG PO (04:41)
[2019-04-02] MEDS ORDERED: LACTULOSE20 GM/30 M PO (04:41)
[2019-04-02] MEDS ORDERED: LATANOPROST2.5 ML OU (04:49)
[2019-04-02] MEDS ORDERED: REFRESH TEARS15 ML OU (04:49)
[2019-04-02] MEDS ORDERED: RESTASIS1 EACH OU (04:49)
[2019-04-02] MEDS ORDERED: BRIMONIDINE TART5 ML OU (04:49)
[2019-04-02] MEDS ORDERED: CARBOXYMETHYLCELLULOSE OU (04:49)
[2019-04-02] MEDS ORDERED: ARTIFICIAL TEAR15 ML OU (04:49)
[2019-04-02 05:29] LABS: BASOPHILS % 0.6 % (0.0-1.0); EOSINOPHILS # (AUTO) 0.3 (0.0-0.4); EOSINOPHILS % 3.8 % (0.0-6.0); HEMATOCRIT 31.2 % (38.2-49.6); HEMOGLOBIN 9.2 g/dL (14.0-18.0); LYMPHOCYTES # (AUTO) 1.1 (1.0-3.2); LYMPHOCYTES % 16.5 % (18.0-39.1); MEAN CORPUSCULAR HEMOGLOBIN 29.7 pg (28-32); MEAN CORPUSCULAR HGB CONC 29.5 g/dL (31-35); MEAN CORPUSCULAR VOLUME 100.6 fL (81-99); MONOCYTES # (AUTO) 0.9 (0.2-0.8); MONOCYTES % 13.4 % (4.4-11.3); NEUTROPHILS # (AUTO) 4.3 (2.1-6.9); NEUTROPHILS % 65.2 % (38.7-80.0); PLATELET COUNT 207 x10e3/uL (140-360); RED CELL DISTRIBUTION WIDTH 16.6 % (11.7-14.4)
[2019-04-02 05:49] LABS: ALBUMIN/GLOBULIN RATIO 0.9 (0.8-2.0); ANION GAP 13.3 mmol/L (8-16); CALCIUM 8.6 mg/dL (8.4-10.2); CREATININE, SERUM 4.03 mg/dL (0.72-1.25); POTASSIUM 3.3 mmol/L (3.5-5.1)
[2019-04-02 06:19] LABS: CREATINE KINASE MB 1.1 ng/mL (0-5.0)
--- NOTE | 2019-04-02 11:50 | NUR ---
Patient is very restless at this time. Abdominal discomfort is becoming intense per patient verbal report, grimacing and crying noted. States " I cannot take this anymore! They need to do something". Notified RELATIONSHIP MANAGEMENT LEAD of [place] Ngo and told to call Dr. Long.
--- NOTE | 2019-04-02 12:00 | NUR ---
Fleet enema given. Patient tolerated with grimacing and verbal report of abdominal discomfort. MONI Wallace stated that Dr. Long will see the patient shortly.
--- NOTE | 2019-04-02 12:37 | NUR ---
Patient passed large formed stool at this time. Still verbalized of abdominal discomfort. Dr. Long is seeing the patient at this time. Family members at bedside.
--- NOTE | 2019-04-02 13:20 | NUR ---
Soaps suds enema given as ordered. Patient is tolerating it with discomfort. Respiration even and unlabored without SOB. Family at bedside. Call light in reach.
[2019-04-02 14:56] LABS: CREATINE KINASE MB 1.1 ng/mL (0-5.0)
[2019-04-02] MEDS ORDERED: KCL 20MEQ/.9 SOD CHL 1,000 ML IV ONE (15:30)
--- NOTE | 2019-04-02 15:57 | Consultation ---
DATE OF CONSULTATION: 04/02/2019 Nephrology Consultation Note REFERRING PHYSICIAN: ER physician. REASON FOR CONSULTATION: ESRD. HISTORY OF PRESENT ILLNESS: This is a 63-year-old gentleman with past medical history of: 1. ESRD, on hemodialysis on Thursday, Thursday, and Thursday schedule through the right chest PermCath with last dialysis yesterday. 2. Status post right chest PermCath placement. 3. History of paroxysmal atrial fibrillation. 4. History of pulmonary fibrosis, was admitted with abdominal discomfort and severe constipation and possible impaction. At the time of my examination, he appeared in no acute distress and denied any nausea, vomiting, headache, blurring vision, chest pain, shortness of breath, bleeding in the stools, skin rash, joint pain, or any focal weakness, but did complain of constipation for several days with possible impaction. PAST MEDICAL HISTORY: As above. PAST SURGICAL HISTORY: As above. PERSONAL AND SOCIAL HISTORY: No history of alcohol or tobacco. MEDICATIONS: See the medication sheet that was reviewed. PHYSICAL EXAMINATION: GENERAL: He appeared in no acute distress. VITAL SIGNS: Blood pressure was 145/70, respirations 18, heart rate 68, temperature 96.7. HEENT: Head was atraumatic and normocephalic. Pupils were reactive to light. Mouth, oral mucosa was moist. NECK: Supple. CHEST: Revealed fair air entry. HEART: S1, S2. ABDOMEN: Soft. Bowel sounds were positive, but there was some diffuse tenderness noted in the abdomen. EXTREMITIES: No edema. BUSINESS CONTINUITY MANAGEMENT DIRECTOR: He is awake, alert, and oriented x3. Cranial nerves were intact. There were no gross motor deficits noted. LABORATORY DATA: Sodium 138, potassium 3.6, chloride 98, CO2 of 29, BUN 13, creatinine 3.1. Normal LFTs. White cell count 5, hemoglobin 9.8, hematocrit 32, and platelets are 230. IMAGING DATA: CT of the abdomen and pelvis showed findings suggestive of mild stercoral colitis with large stool bowel in the distal sigmoid and rectum resulting in mild dilatation of the rectum, worrisome for infection. IMPRESSION: 1. End-stage renal disease, on hemodialysis on Thursday, Thursday, and Thursday schedule with no evidence of volume overload or hyperkalemia. 2. Anemia, secondary to end-stage renal disease. PLAN: Strict I's and O's. No acute indication for dialysis today. We will probably need surgical evaluation for stool impaction. Case was discussed with the family. Thank you for the consultation. Qi Anna MD SA/VASQUEZ /[id number]
--- NOTE | 2019-04-02 16:00 | NUR ---
Ordered given to do bedside blood sugar checks q12 hr. at 8am and 1999 by MONI Wallace.
--- NOTE | 2019-04-02 16:02 | Consultation ---
DATE OF CONSULTATION: 04/02/2019 HISTORY OF PRESENT ILLNESS: The patient is a 63-year-old male with multiple medical problems, who presents with complaints of severe constipation. The patient has not been able to have a bowel movement for 6 days. He has been given some enemas in the hospital with no results. He has had some problems similarly one other time, which was about 4 months ago while he was in the hospital, which eventually was resolved, had a colonoscopy done, which did not reveal any obstruction. CT of the abdomen was done, which revealed large fecal impaction in the distal sigmoid upper rectum with some surrounding inflammation. PAST MEDICAL HISTORY: Significant for end-stage renal disease, hypertension, diabetes, atrial fibrillation, hyperlipidemia, glaucoma, gout, pulmonary fibrosis, had previous surgery for cataract, previous dialysis catheter placed. MEDICATIONS: At home are listed in the chart, there are multiple medications. ALLERGIES: PENICILLIN. FAMILY HISTORY: Noncontributory. SOCIAL HISTORY: The patient is . Does not smoke cigarettes or drink alcohol. REVIEW OF SYSTEMS: As stated above, otherwise was negative. PHYSICAL EXAMINATION: GENERAL: The patient is awake and alert. VITAL SIGNS: Normal. He is not tachycardic. HEENT: Sclerae is not icteric. NECK: Has no masses. LUNGS: Equal breath sounds are clear bilaterally. CARDIAC: Regular rhythm. ABDOMEN: Mildly distended, it is mildly tender in lower abdomen. There is no mass. There were no signs of peritonitis. RECTAL: Has no mass or stool that is easily, but it is in the lower rectum. EXTREMITIES: Have no edema. LABORATORY DATA: White blood cell count is normal. Differential is normal. Hemoglobin 9.2, hematocrit 31. Chemistries elevated. BUN and creatinine consistent with the patient's renal failure. ASSESSMENT: A 63-year-old male with a high fecal impaction for 6 days. At this point, we will try to continue with the enemas, see if the patch impaction can be relieved. If this is not successful, then he may require surgery, which could include manual disimpaction in the OR, but also possibly could be a colostomy or something more extreme if the impaction could not be reached transrectally. Thank you for asking me to see Mr. Joseph. MD PHYLLIS Conley/VASQUEZ /[id number]
--- NOTE | 2019-04-02 17:50 | NUR ---
Patient passed large amount of dissolved stool. Patient states " I felt a big ball of stool came out". Patient verbalized a huge relief of abdominal discomfort. Denies pain at this time.
--- NOTE | 2019-04-02 17:52 | Consultation ---
DATE OF CONSULTATION: 04/02/2019 Cardiology Consultation Note REASON FOR CONSULT: Preoperative clearance. HISTORY OF PRESENT ILLNESS: The patient is a 63-year-old gentleman with past history significant for coronary artery disease status post two stents in December 2018, atrial fibrillation status post ablation, pulmonary fibrosis diagnosed in April 2018, end-stage renal disease, also diagnosed in December 2018, rheumatoid arthritis, hypertension, and hyperlipidemia, who was admitted for severe abdominal pain due to chronic constipation. The patient presented to ER complaining of severe constipation for the past week. Imaging obtained by primary has shown a large ball of stool seen in his colon concerning for impaction, and the patient is undergoing evaluation for disimpaction under anesthesia. The patient reports no chest pain symptoms, no shortness of breath, and he is seen in clinic routinely with Dr. Olson. Family members are at the bedside and provide history. PAST MEDICAL HISTORY: 1. Coronary artery disease, status post PCI with stents to the LAD and RCA in December 2018. 2. Status post ablation for atrial fibrillation. 3. Pulmonary fibrosis diagnosed in April 2018. 4. End-stage renal disease diagnosed in December 2018. 5. Hypertension. 6. Hyperlipidemia. 7. Rheumatoid arthritis. PAST SURGICAL HISTORY: Vitrectomy and cataract surgeries in both eyes. FAMILY HISTORY: Mother with diabetes. SOCIAL HISTORY: Former smoker, who quit in January 2018. When he used to smoke, he would consume about six cigarettes a day over a 30-year time. ALLERGIES: PENICILLIN. REVIEW OF SYSTEMS: GENERAL: Increased pain and discomfort due to abdominal discomfort. HEENT: No trauma to the head. No mouth sores. LUNGS: No shortness of breath. CARDIOVASCULAR: No chest pain or palpitations. GI: Positive for abdominal pain and discomfort. NEUROLOGIC: No dizziness or headaches. MUSCULOSKELETAL: No joint pain or swelling. SKIN: No rashes or bruises. PHYSICAL EXAMINATION: VITAL SIGNS: Temperature is 96.7, heart rate 68, blood pressure 145/70, and respirations 18. O2 saturation 100% on room air. GENERAL: The patient in no acute distress. HEENT: Normocephalic and atraumatic. NECK: Supple and midline. LUNGS: Clear to auscultation. No acute distress. CARDIOVASCULAR: Regular rate and rhythm. He has a port noted in his right upper chest for dialysis access. GI: Abdomen is distended, mildly tender in the lower abdomen. NEUROLOGIC: No focal deficits. MUSCULOSKELETAL: No signs of edema. SKIN: Dry and intact. LABORATORY DATA: Potassium is 4.2, creatinine is 0.73. Hemoglobin is 11.8, white blood cell count is 8.8, and platelets are 166,000. IMAGING DATA: A CT of the abdomen shows signs of mild stercoral colitis and a large ball of stool in the distal sigmoid and rectum with resulting in dilatation of the rectum and worrisome for impaction. However, no perforation was noted. ASSESSMENT: A 63-year-old man admitted with the following. 1. Severe constipation. 2. Coronary artery disease, status post PCI. 3. Pulmonary fibrosis. 4. Atrial fibrillation status post ablation. 5. End-stage renal disease. 6. Hypertension. 7. Hyperlipidemia. 8. Rheumatoid arthritis. RECOMMENDATIONS: The patient is scheduled for possible disimpaction under anesthesia. Cardiology evaluation has been requested concerning preoperative clearance. The patient appears compensated from Cardiology standpoint with no acute symptoms. The patient will have moderate cardiovascular risk for procedures and can proceed as scheduled. Recommend to resume home cardiovascular medications and obtain EKG and echocardiogram, which are pending at this time. Continue to monitor electrolytes and replete as needed. We will continue to follow the patient with you. DVT prophylaxis. CROSS COVER FOR DR ASHU GARCIA MD LEONOR Borjas/MICHIL /[id number] cc: Ashu Donaldson MD MTD
--- NOTE | 2019-04-02 18:37 | History and Physical ---
PRIMARY CARE PHYSICIAN: Dr. Jayashree Sanchez at [facility]. CHIEF COMPLAINT: Severe constipation x5 days with abdominal discomfort. HISTORY OF PRESENT ILLNESS: This is a 63-year-old male with past medical history of hypertension; diabetes; ESRD; atrial fibrillation, status post ablation, a few months ago; pulmonary fibrosis; rheumatoid arthritis; gout; and glaucoma, presented with severe constipation x5 days. He reports he has been getting iron infusions with dialysis, which he has been taking lactulose for constipation and did not help. He reports had gone to the [place] on Thursday two days ago for the same reason, they tried disimpacting in the office, but was not successful. So, he was given a prescription for lactulose and sent home. He reports taking lactulose three times with no relief. Since abdominal pain was increasing, decided to present to the ER for further intervention. PAST MEDICAL HISTORY: 1. Hypertension. 2. Paroxsymal atrial fibrillation, status post ablation. 3. Diabetes. 4. ESRD, on dialysis; Thursday, Thursday, and Thursday. 5. Pulmonary fibrosis. 6. Rheumatoid arthritis. 7. Gout. 8. Glaucoma. SURGICAL HISTORY: Eye surgery for cataracts and bronchoscopy. He has had AV fistula to the left arm last month and ablation. FAMILY MEDICAL HISTORY: Mother has diabetes. Does not know his father's medical problems. SOCIAL HISTORY: He reports quitting tobacco and alcohol use in January 2018. He denies any illicit drug use. He is , retired , lives with his . ALLERGIES: PENICILLIN. REVIEW OF SYSTEMS: GENERAL: Fatigue. HEENT: No head trauma. LUNGS: No shortness of breath. CARDIOVASCULAR: No chest pain or palpitations. GASTROINTESTINAL: Severe constipation with abdominal pain. NEUROLOGIC: Oriented. MUSCULOSKELETAL: Generalized weakness. SKIN: No rash. PHYSICAL EXAMINATION: VITAL SIGNS: Temperature 96.7, pulse is 68, respirations 18, blood pressure 147/70, and pulse ox 98% on room air. GENERAL: Fatigue and generalized weakness. HEENT: Normocephalic and atraumatic. NECK: Supple. LUNGS: Clear to auscultation. CARDIOVASCULAR: Regular rate and rhythm. GASTROINTESTINAL: Soft. Tender in the lower quadrants with severe constipation. Hypoactive bowel sounds. NEUROLOGIC: Alert, awake, and oriented x3. MUSCULOSKELETAL: Moves all extremities. SKIN: Dry. PSYCHIATRIC: Calm. LABORATORY DATA: WBC 5.06, hemoglobin 9.8, hematocrit 32.0, and platelets 230. Sodium 141, potassium 3.3, creatinine 4.03, estimated GFR 15, calcium 8.6, and magnesium 2.0. AST 13 and ALT 10. Troponin I negative x3. Total protein 6.2 and albumin 3.0. PT 13.6. APTT 35.9. IMAGING DATA: CT abdomen and pelvis shows mild stercoral colitis, large stool bowel, and distal sigmoid and rectum resulted in mild dilation of the rectum and is worrisome for impaction. No perforation. IMPRESSION: 1. Mild stercoral colitis. We will continue with Flagyl and Rocephin, pain management with Tylenol. 2. Severe constipation with large stool bowel in the distal sigmoid and rectum area, with no perforation per CT. Enema x2 given, pain management, and surgical team consulted for further intervention. 3. Hypertension. We will hold all medications due to n.p.o. status and we will treat as needed with IV hydralazine. 4. Diabetes type 2, stable. We will continue sliding scale as needed. 5. End-stage renal disease, on dialysis. Nephrology has been consulted. 6. History of paroxysmal atrial fibrillation, status post ablation. We will hold all medications. Currently, sinus rhythm. Cardiology has been consulted. 7. History of pulmonary fibrosis, aware. 8. History of rheumatoid arthritis and gout. Currently with no flare ups. Pain management with Tylenol as needed. 9. Glaucoma, with some vision impairment, aware. 10. Deep venous thrombosis prophylaxis. We will hold any anticoagulation due to possible procedures. Surgical intervention for stool impaction. Dictated by ROB Danielson Gabe Vernon MD MY/MODL /[id number]
--- NOTE | 2019-04-02 19:00 | NUR ---
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 Respiration even and unlabored without SOB. Call light in reach.
[2019-04-02] MEDS: CEFTRIAXONE SOD 1 GM/NS 50 ML 50 ML IV SCH (19:50)
--- NOTE | 2019-04-02 21:47 | NUR ---
SOAP SUDS ENEMA GIVEN PER MD ORDER.
--- NOTE | 2019-04-02 22:30 | NUR ---
PATIENT PASSED A MODERATE AMOUNT OF DISSOLVED BROWN STOOL AT THIS TIME.
--- NOTE | 2019-04-02 23:20 | NUR ---
PATIENT PASSED ANOTHER BROWN MODERATE AMOUNT OF DISSOLVED STOOL.
--- NOTE | 2019-04-02 23:35 | NUR ---
RIGHT FA IV TENDER AND SWELLING. IV REMOVED WITH TIP INTACT. PRESSURE DRESSING APPLIED. NEW IV STARTED TO RIGHT AC 20G X1 ATTEMPT.
[2019-04-03] VITALS: BP_SYST 162; BP_SYST 173; BP_DIAS 77; BP_DIAS 87
[2019-04-03] MEDS: METRONIDAZOLE 500MG/NS 100ML 100 ML IV SCH ×3 (00:08→12:36)
[2019-04-03] MEDS: HYDRALAZINE HCL 20 MG/ML VIAL IV PRN (00:15)
[2019-04-03 04:00] VITALS: BP 155/70
--- NOTE | 2019-04-03 05:10 | NUR ---
3RD SOAP SUDS ENEMA ADMINISTERED PER MD ORDER.
--- NOTE | 2019-04-03 06:50 | NUR ---
Received patient lying in bed with eyes open. at bedside. Denies abdominal pain at this time. Respiration even and unlabored without SOB. Call light in reach.
[2019-04-03 07:57] VITALS: BP 167/83
[2019-04-03 09:20] VITALS: BP 167/83
--- NOTE | 2019-04-03 10:11 | NUR ---
Patient is transported for radiology at this time.
--- NOTE | 2019-04-03 10:37 | Diagnostic Imaging Report ---
EXAM: Abdomen Radiograph 1 View(s) INDICATION: Fecal impaction COMPARISON: CT abdomen and pelvis dated 04/01/2019. FINDINGS: No lines or tubes. Marked volume of stool in the colon. Decreased volume of fecal retention in the rectum. No abnormal abdominal calcifications.. No abnormal soft tissue masses. No pneumoperitoneum. No acute osseous abnormality. IMPRESSION: Marked volume of stool in the colon. Decreased volume of fecal retention in the rectum. Signed by: Lui Pearson MD on 04/03/2019 10:35 AM
[2019-04-03 12:11] VITALS: BP 166/82
--- NOTE | 2019-04-03 13:15 | Progress Note ---
DATE: 04/03/2019 Cardiology Progress Note SUBJECTIVE: The patient had three enemas yesterday, which cleared much of his impacted bowel and the patient feels much improved today. No further abdominal pain or chest pain or shortness of breath noted. OBJECTIVE: VITAL SIGNS: Temperature 97.1, heart rate 81, blood pressure 157/83, respirations 20. GENERAL: No acute distress. HEENT: Normocephalic, atraumatic. NECK: Supple, midline neck. LUNGS: Clear to auscultation bilaterally. No acute distress. CARDIOVASCULAR: Regular rate and rhythm with tunneled cath noted in the right upper chest for dialysis access. GI: Abdomen is soft. Positive bowel sounds. NEUROLOGIC: No focal deficits. MUSCULOSKELETAL: No lower extremity edema. SKIN: Dry and intact. LABORATORY DATA: None today. No new labs today. CARDIOVASCULAR MEDICATIONS: Please refer to chart. ASSESSMENT: A 63-year-old man admitted for the followin. Severe constipation. 2. Coronary artery disease, status post percutaneous coronary intervention. 3. Pulmonary fibrosis. 4. Atrial fibrillation, status post ablation. 5. End-stage renal disease. 6. Hypertension. 7. Hyperlipidemia. 8. Rheumatoid arthritis. RECOMMENDATIONS: Continue supportive care. The patient is much more comfortable and has been able to move his bowels. Continue and resume all home cardiovascular medications and follow up in clinic with Dr. Olson as instructed. No acute cardiac indications seen at this time. We will sign off for now. The patient is awaiting discharge. The patient is currently waiting to be discharged home later today. Cross cover for Dr. Ashu Donaldson. MD LEONOR Borjas/VASQUEZ /[id number]
[2019-04-03] MEDS ORDERED: FLAGYL500 MG PO (14:30)
[2019-04-03] MEDS ORDERED: CIPRO500 MG PO (14:31)
--- NOTE | 2019-04-03 16:06 | NUR ---
PIV to right FA discontinued, catheter tip intact, no bleeding noted. Transported patient via wheelchair to private vehicle. All personal belongings are taken.
--- NOTE | 2019-04-03 17:27 | Discharge Summary ---
PRIMARY CARE PHYSICIAN: Dr. Jayashree Sanchez at [facility]. FINAL DIAGNOSES: 1. Mild stercoral colitis. 2. Severe constipation with large stool ball in the distal sigmoid. 3. Hypertension. 4. Diabetes. 5. End-stage renal disease. 6. History of atrial fibrillation. 7. History of pulmonary fibrosis. 8. History of rheumatoid arthritis and gout. 9. Glaucoma with vision impairment. CONSULTANTS: 1. Dr. Olson with Cardiology. 2. Dr. Long with Surgery. 3. Dr. Dent with Nephrology. PROCEDURES: Enema multiple times to unclog. HISTORY: Per HPI. HOSPITAL COURSE: This is a pleasant 63-year-old male with past medical history of hypertension, diabetes, ESRD, atrial fibrillation, status post ablation, pulmonary fibrosis, rheumatoid arthritis, gout and glaucoma, presented with severe constipation x5 days. Imaging showed mild stercoral colitis and a large stool ball and distal sigmoid and rectum resulting in mild dilation of the rectum and is worrisome for impaction. No perforation noted. He was kept n.p.o., Cardiology and Surgical team consulted. He was given fleets enema with not much improvement, surgical team evaluated the patient and recommended soap enema x3. He did move his bowels about three times and has no discomfort. KUB this morning shows he still has large amount of stool, but the patient feels like his bowel is soft and is moving and would like to go home, so we will discharge home to continue taking lactulose that he has at home. Advised to increase it to three times a day as needed. He is afebrile, abdomen is soft and nontender, vital signs stable, no shortness of breath or chest pain, we will discharge home to follow up with his PCP and restaurant busser tomorrow per appointment. PHYSICAL EXAMINATION: VITAL SIGNS: Temperature 97.0, pulse is 77, respirations 20, blood pressure 166/82, pulse ox is 99% on room air. GENERAL: No acute distress. HEENT: Normocephalic, atraumatic. LUNGS: Clear to auscultation. CARDIOVASCULAR: Regular rate and rhythm. GI: Soft and nontender. NEUROLOGIC: Alert, awake, and oriented x3. MUSCULOSKELETAL: Moves all extremities. CONDITION AT DISCHARGE: Improved and stable. DISCHARGE MEDICATIONS: Please see medication reconciliation list. FOLLOWUP: Follow up with PCP, Nephrology and Cardiology per appointment. TIME SPENT: Total discharge time is 35 minutes. Discussed discharge instruction with daughters and at bedside and verbalized understanding. Dictated by ROB Danielson Claudiaching Ric Vernon MD MY/MODL /[id number] cc: Jayashree Sanchez MD
== END 2019-04-03 16:06 | disposition home or self-care (01) | DRG 388 ==
LOC: ER 15:47 → ERHOLD 19:03 → MED/SURG 22:00
PROVIDERS: ADMIT Internal Medicine; ATTEND Internal Medicine
DX: K56.41 Fecal impaction (principal); N18.6 End stage renal disease; I12.0 Hypertensive chronic kidney disease with stage 5 chronic kidney disease or end stage renal disease; K52.89 Other specified noninfective gastroenteritis and colitis; Z88.0 Allergy status to penicillin; I48.0 Paroxysmal atrial fibrillation; E11.22 Type 2 diabetes mellitus with diabetic chronic kidney disease; M06.9 Rheumatoid arthritis, unspecified; H40.9 Unspecified glaucoma; J84.10 Pulmonary fibrosis, unspecified; D63.1 Anemia in chronic kidney disease; I25.10 Atherosclerotic heart disease of native coronary artery without angina pectoris; Z95.5 Presence of coronary angioplasty implant and graft; E78.5 Hyperlipidemia, unspecified; Z79.4 Long term (current) use of insulin
CPT/HCPCS: 36415; 74018; 74176; 80053; 82550; 82553; 82948; 83735; 84484; 85025; 85610; 85730; 93005; 93306; 99284; J0360; J0696; J7050

== ENCOUNTER 2019-05-09 06:34 | Inpatient (IN) | payer MEDICARE ==
[2019-05-08] MEDS: INSULIN GLARGINE 100 UNITS/ML VIAL SQ SCH (22:00)
[~2019-05-09] VITALS: Ht 165.1 cm; Wt 79.4 kg
[~2019-05-09 06:34] MED LIST changes: +ARTIFICIAL TEAR15 ML OU; +BRIMONIDINE TART5 ML OU; +CARBOXYMETHYLCELLULOSE OU; +CIPRO500 MG PO; +DICLOFENAC SOD100 G1 TOP; +FLAGYL500 MG PO; +LACTULOSE20 GM/30 M PO; +LATANOPROST2.5 ML OU; +METHOTREXATE2.5 MG PO; +PREDNISONE5 MG PO; +REFRESH TEARS15 ML OU; +RESTASIS1 EACH OU; +TUMS300 MG PO
[2019-05-09 07:10] LABS: BASOPHILS % 0.9 % (0.0-1.0); EOSINOPHILS # (AUTO) 0.1 (0.0-0.4); LYMPHOCYTES # (AUTO) 1.1 (1.0-3.2); LYMPHOCYTES % 48.3 % (18.0-39.1); MEAN CORPUSCULAR HEMOGLOBIN 31.3 pg (28-32); MEAN CORPUSCULAR HGB CONC 31.1 g/dL (31-35); MEAN CORPUSCULAR VOLUME 100.6 fL (81-99); MONOCYTES # (AUTO) 0.1 (0.2-0.8); MONOCYTES % 4.3 % (4.4-11.3); NEUTROPHILS # (AUTO) 0.9 (2.1-6.9); NEUTROPHILS % 40.1 % (38.7-80.0); PLATELET COUNT 124 x10e3/uL (140-360); RED CELL DISTRIBUTION WIDTH 18.1 % (11.7-14.4)
[2019-05-09 07:14] LABS: INR 0.96; PROTHROMBIN TIME 13.3 seconds (11.9-14.5)
[2019-05-09 07:18] LABS: HEMATOCRIT 16.1 % (38.2-49.6)
[2019-05-09 07:21] LABS: ALBUMIN 2.8 g/dL (3.5-5.0); ALBUMIN/GLOBULIN RATIO 0.9 (0.8-2.0); ANION GAP 12.9 mmol/L (8-16); CALCIUM 7.9 mg/dL (8.4-10.2); CREATININE, SERUM 6.57 mg/dL (0.72-1.25); POTASSIUM 3.9 mmol/L (3.5-5.1)
[2019-05-09] MEDS ORDERED: SODIUM CHLORIDE 0.9% 250ML 250 ML IV ONE (07:45)
--- NOTE | 2019-05-09 11:06 | NUR ---
DR WOODWARD RETURNED THE CALL AND GOT THE ORDER TO 2 UNITS OF BLOOD TRANSFUSION WITH DIALYSIS
--- NOTE | 2019-05-09 11:10 | NUR ---
PAGED AND TALKED (JEFFERY) IN [facility] THEY WILL ARRANGE DIALYSIS TODAY
[2019-05-09 11:42] LABS: ANISOCYTOSIS SLIGHT; BAND NEUTROPHILS % (MANUAL) 1 %; EOSINOPHILS % (MANUAL) 2 % (0-7); LYMPHOCYTES % (MANUAL) 45 % (19-48); MONOCYTES % (MANUAL) 1 % (3.4-9.0); NEUTROPHILS % (MANUAL) 49 % (40-74); NUCLEATED RED BLOOD CELLS 1; PLATELET ESTIMATE SLIGHTLY DECREASED; RBC MORPHOLOGY COMMENT NORMAL
[2019-05-09 11:43] LABS: OVALOCYTES FEW; SCHISTOCYTES RARE
[2019-05-09 11:44] LABS: PLATELET MORPHOLOGY COMMENT NORMAL
[2019-05-09 12:18] VITALS: BP 141/67
[2019-05-09 12:40] VITALS: BP 141/67
[2019-05-09 12:50] VITALS: BP 141/67
[2019-05-09] MEDS ORDERED: SODIUM CHLORIDE 0.9% 1000ML 2,000 ML ONE (13:28)
[2019-05-09 13:34] LABS: % IRON SATURATION 34 % (15-50); IRON 96 ug/dL (65-175); TOTAL IRON BINDING CAPACITY 283 ug/dL (261-478); TRANSFERRIN 202 mg/dL (174-364)
--- NOTE | 2019-05-09 13:39 | Consultation ---
DATE OF CONSULTATION: 05/09/2019 HISTORY OF PRESENT ILLNESS: A 63-year-old gentleman with underlying history of end-stage renal disease, diabetes, hypertension, recently diagnosed to have rheumatoid arthritis, presented with significant anemia, hemoglobin 5 with a white count 2.3, and platelet count of 124. He had INR of 0.96. His chemistry shows sodium 140, potassium 3.9, creatinine 6.5. He is currently sitting up, in no apparent distress. Has noticed black stools last several days. Denies hematemesis, melena, abdominal pain. He has been started on methotrexate recently. ALLERGIES: HE IS ALLERGIC TO PENICILLIN. SOCIAL HISTORY: Does not smoke or drink. PAST MEDICAL HISTORY: History of diabetes, hypertension, rheumatoid arthritis, end-stage renal disease. CURRENT MEDICATIONS: Metoprolol 25 mg p.o. b.i.d. PHYSICAL EXAMINATION: GENERAL: Awake, alert, oriented x3, sitting up in no apparent distress. VITAL SIGNS: With a blood pressure 130/60, pulse rate 77, and afebrile. HEAD AND NECK: Cornea clear. Oral mucosa moist. Neck veins flat. LUNGS: Bibasilar rales. HEART: S1, S2 audible. ABDOMEN: Otherwise soft, nontender. EXTREMITIES: Lower extremity examination shows no edema. IMPRESSION: Pancytopenia, probably side effect of underlying methotrexate, thus could be a bone marrow issue. We must rule out GI bleed as well. The patient has been noticing black stools. I will send an iron profile. Arrange for dialysis. Transfuse 2 units of packed RBC. Consult GI and consider Hematology evaluation. Please see orders. MD JIM Smith/VASQUEZ /[id number]
--- NOTE | 2019-05-09 14:00 | NUR ---
BED SIDE BLOOD VERIFICATION DONE WITH ANOTHER RN AND TRANSFUSION STARTED WITH DIALYSIS
[2019-05-09] MEDS ORDERED: HEPARIN SOD (PORCINE) 1000 UNIT/ML SDV IV PRN (14:15)
[2019-05-09] MEDS ORDERED: SODIUM CHLORIDE 0.9% 1000ML 2,000 ML IV PRN (14:15)
--- NOTE | 2019-05-09 15:31 | Consultation ---
DATE OF CONSULTATION: 05/09/2019 Cardiology Consultation CONSULTING PHYSICIAN: Dr. Ashu Olson, Interventional Cardiology. REASON FOR CONSULTATION: Management of cardiovascular disease. HISTORY OF PRESENT ILLNESS: A 63-year-old man with known history of coronary artery disease status post LAD and RCA drug-eluting stent PCI in 2019, history of atrial fibrillation status post ablation, history of ventricular tachycardia, history of chronic systolic heart failure and pulmonary fibrosis, rheumatoid arthritis, hypertension, dyslipidemia, and end-stage renal disease, presents with 4 days of black tarry stools and hemoglobin of 5. He denies any chest pain. He has stable shortness of breath. He denies any lightheadedness or increased palpitations. He has no other complaints at this point. PAST MEDICAL HISTORY: As per HPI. SOCIAL HISTORY: Former smoker, quit in 2018. No alcohol or drugs. FAMILY HISTORY: Mother with diabetes. ALLERGIES: TO PENICILLIN. REVIEW OF SYSTEMS: A 12-system review negative except for as noted above. PHYSICAL EXAMINATION: VITAL SIGNS: Afebrile, heart rate 70, blood pressure 155/70, and O2 saturation 99% on nasal cannula. GENERAL: In no acute distress. Alert. NECK: No JVD. CHEST: With scattered rales. CARDIOVASCULAR: Regular rate and rhythm. Normal S1 and S2. Systolic ejection murmur. ABDOMEN: Soft. Bowel sounds positive. EXTREMITIES: No edema. CARDIOVASCULAR MEDICATIONS: Reviewed. STUDIES: Reviewed. Creatinine 6.5, bicarbonate 27, and potassium 3.9. White blood cells 2.3, hemoglobin 5, and platelets 124. INR 0.96. PT 13.3. AST 68, ALT 111, alkaline phosphatase 76, and total bilirubin 0.5. ASSESSMENT AND PLAN: A 63-year-old man presents with acute gastrointestinal bleed, anemia of blood loss, end-stage renal disease, coronary artery disease, prior LAD and RCA drug-eluting stent PCI in 2019, hypertension, dyslipidemia, rheumatoid arthritis, history of ventricular tachycardia, and history of atrial fibrillation. RECOMMEND: 1. Resume metoprolol 25 mg every 12 hours. 2. Continue to hold antiplatelet agents as well as anticoagulation. The patient was previously on Eliquis. 3. Supportive transfusions. 4. GI consultation. 5. Overall guarded prognosis. We will follow closely with you. MD SID Mcclure/MICHIL /[id number]
[2019-05-09] MEDS: METOPROLOL TARTRATE 25 MG TAB PO SCH (17:00)
[2019-05-09 17:31] VITALS: BP 152/71
--- NOTE | 2019-05-09 18:00 | NUR ---
DIALYSIS DONE AND REMOVED 3 LTRS
--- NOTE | 2019-05-09 18:39 | NUR ---
PT RESTING ON BED BED SIDE REPORT GIVEN TO ONCOMING NURSE
--- NOTE | 2019-05-09 20:31 | NUR ---
RECEIVED PT SIITING ON THE BED .PT HAD DIALYSIS TODAY AND TAKEN 3 L .DENIES PAIN CALL LIGHT WITH IN REACH .CONTINUE TO MONITOR
[2019-05-09 20:43] VITALS: BP 152/71
[2019-05-09] MEDS ORDERED: DEXTROSE 50% SYRINGE 50 ML IV PRN ×2 (21:30→22:15)
[2019-05-09 21:56] VITALS: BP 135/62
--- NOTE | 2019-05-09 22:00 | NUR ---
Hgb IS 6.[address] JAUREGUI GIVEN ORDER TO DO CBC IN AM
[2019-05-10] VITALS (8 sets, daily range): BP systolic 135–157; BP diastolic 64–72
[2019-05-10 06:04] LABS: BASOPHILS % 0.3 % (0.0-1.0); EOSINOPHILS # (AUTO) 0.2 (0.0-0.4); EOSINOPHILS % 6.5 % (0.0-6.0); LYMPHOCYTES # (AUTO) 0.9 (1.0-3.2); LYMPHOCYTES % 28.4 % (18.0-39.1); MEAN CORPUSCULAR HEMOGLOBIN 31.9 pg (28-32); MEAN CORPUSCULAR HGB CONC 32.9 g/dL (31-35); MEAN CORPUSCULAR VOLUME 97.2 fL (81-99); MONOCYTES # (AUTO) 0.2 (0.2-0.8); MONOCYTES % 4.8 % (4.4-11.3); NEUTROPHILS # (AUTO) 1.8 (2.1-6.9); NEUTROPHILS % 58.4 % (38.7-80.0); PLATELET COUNT 104 x10e3/uL (140-360); RED BLOOD COUNT 2.16 x10e6/uL (4.3-5.7); RED CELL DISTRIBUTION WIDTH 15.8 % (11.7-14.4)
[2019-05-10 06:27] LABS: ALBUMIN 2.7 g/dL (3.5-5.0); ALBUMIN/GLOBULIN RATIO 0.9 (0.8-2.0); ANION GAP 10.5 mmol/L (8-16); CALCIUM 7.9 mg/dL (8.4-10.2); CREATININE, SERUM 3.75 mg/dL (0.72-1.25); HEMOGLOBIN 6.9 g/dL (14.0-18.0); POTASSIUM 3.5 mmol/L (3.5-5.1)
--- NOTE | 2019-05-10 07:18 | NUR ---
PT RESTING AND BEDSIDE REPORT GIVEN TO THE ONCOMING NURSE
[2019-05-10] MEDS: INSULIN LISPRO 100 UNIT/1 ML 3ML VIAL SQ SCH ×4 (07:30→23:56)
[2019-05-10] MEDS: METOPROLOL TARTRATE 25 MG TAB PO SCH ×2 (09:01→16:41)
[2019-05-10] MEDS ORDERED: METOCLOPRAMIDE HCL 10 MG/2ML VIAL IV ONE (11:50)
[2019-05-10] MEDS ORDERED: SODIUM CHLORIDE 0.9% 250ML 250 ML IV ONE ×2 (12:00→17:45)
--- NOTE | 2019-05-10 12:28 | NUR ---
Pt. expressed no spiritual or emotional concerns at this time. Provided hospitality and information on how to reach shipper/receiver, if needed. Pt expressed appreciation for visit. No need to follow at this time. LUISITO WATSON Rn Surgery [facility] O: [phone]
[2019-05-10] MEDS ORDERED: SODIUM CHLORIDE 0.9% 500ML 500 ML ONE (12:31)
--- NOTE | 2019-05-10 13:35 | Operative Report ---
DATE OF PROCEDURE: 05/10/2019 SURGEON: César Mckeon MD PROCEDURE: An esophagogastroduodenoscopy with polypectomy and biopsies. INDICATIONS FOR PROCEDURE: Anemia, melena. MEDICATIONS: The patient was done under MAC. Please see anesthesiologist's note. PROCEDURE IN DETAIL: With the patient in left lateral decubitus position, the flexible fiberoptic Olympus gastroscope was introduced into the esophagus under direct visualization without any difficulty. There was some patchy erythema noted in distal esophagus. The scope was then advanced with ease into the stomach traversing a small sliding hiatal hernia. Mucosa overlying the antrum and the body revealed some patchy erythema and moderate edema, and biopsies were obtained sent to stain for H pylori. A minute hyperplastic-appearing polyp was noted in the body of the stomach and that was partially excised with cold biopsy forceps. The pylorus was of normal contour and shape, it was intubated with ease and the scope was advanced all the way to the second portion of the duodenum. The scope was then withdrawn slowly mucosa overlying the proximal second portion and the duodenal bulb revealed some patchy intense erythema. The scope was then withdrawn back into the stomach and retroflexed, mucosa overlying the fundus and cardia appeared to be within normal limits. The scope was then straightened out, it was subsequently withdrawn. The patient tolerated the procedure well. IMPRESSION: 1. Distal esophagitis. 2. Small sliding hiatal hernia. 3. Gastritis, biopsied. Biopsies sent to stain for H pylori. 4. Gastric body, polyp, hyperplastic appearing, minute, partially excised with cold biopsy forceps. 5. Duodenitis. PLAN: Follow up histology. Initiate renal ADA diet. We will proceed with GI bleed scan. If negative, then the patient will need a colonoscopy. César Mckeon MD [facility] [place]/MODL /[id number] cc: MD Rubina Lincoln MD
[2019-05-10] MEDS ORDERED: SODIUM CHLORIDE 0.9% 250ML 250 ML ONE (14:23)
--- NOTE | 2019-05-10 15:55 | Progress Note ---
DATE: 05/10/2019 SUBJECTIVE: Undergoing GI evaluation today. OBJECTIVE: VITAL SIGNS: Temperature 98.2, heart rate 74, blood pressure 151/65, respiratory rate 18 NAD Rest of exam deferred MEDICATIONS: Reviewed. Continue metoprolol tartrate 25 mg b.i.d. Anticoagulation currently on hold. LABORATORY DATA: Sodium 142, potassium 3.5, hemoglobin 6.9, platelets 104. INR 0.9 PT 13.3, AST 50 ASSESSMENT AND PLAN: 1. A 63-year-old man presents with reported melena and hemoglobin of 5, post 1 unit of transfusion, increased to 6.9, pulmonary fibrosis, rheumatoid arthritis, history of paroxysmal atrial fibrillation, ventricular tachycardia, Anemia: supportive transfusion as needed. 2. Replete electrolytes as needed and keep on telemetry while in-house. Once further information obtained regarding bleeding source, can provide final recommendations regarding plan of anticoagulation therapy. Ashu Donaldson MD AFGwen/VASQUEZ /[id number] MTDD
[2019-05-10] MEDS ORDERED: ALLOPURINOL 100 MG TAB PO SCH (16:00)
[2019-05-10] MEDS ORDERED: HEPARIN SOD (PORCINE) 1000 UNIT/ML SDV ONE (16:03)
[2019-05-10] MEDS: ARTIFICIAL TEARS (OPTH) 15 ML BTL OU SCH ×2 (16:38→20:40)
[2019-05-10] MEDS: BRIMONIDINE TARTRATE 0.15% OPTH DRPS 10ML BTL OP SCH (16:38)
[2019-05-10] MEDS: DOCUSATE SODIUM 100 MG CAP PO SCH (16:41)
[2019-05-10] MEDS ORDERED: PROPOFOL IV EMULSION 10 MG/ML 20 ML VIAL ONE (17:38)
[2019-05-10] MEDS ORDERED: LIDOCAINE HCL 2% LOCAL INJ 5 ML SDV VIAL INJ ONE (17:38)
[2019-05-10] MEDS ORDERED: BRIMONIDINE TARTRATE (OPTH) 5 ML LIQD OP SCH (18:00)
--- NOTE | 2019-05-10 18:30 | NUR ---
Patient had 1 unit of blood transfused successfully. Patient had no reactions of issues at this time. Patients VS were monitored during the entire transfusion. Will continue to monitor.
--- NOTE | 2019-05-10 19:06 | Diagnostic Imaging Report ---
Tagged-RBC GI Bleed Study Clinical information: 63-year-old male with melena, anemia and ESRD. Discussion: The patient's own red blood cells were labeled with 26.1 mCi of technetium-99m pertechnetate using the in vitro method (UltraTag). Dynamic images of the abdomen were obtained through 60 minutes. Distribution of tracer activity appears physiologic throughout the abdomen. No abnormal accumulation of tracer is seen within the gastrointestinal lumen. Impression: No scan evidence of active gastrointestinal bleeding at this time. Signed by: Dr. Ramya Del Cid M.D. on 05/10/2019 7:02 PM
--- NOTE | 2019-05-10 19:58 | NUR ---
RECEIVED PT WALKING INTHE ROOM .PT HAD EGD TODAY .TRANSFUSED 1 UNIT BLOOD AND ORDER TO GIVE 2 UNIT OF BLOOD DURING THE DIALYSIS. COLONOSCOPY ORDERED TO DO ON THURSDAY.CALL LIGHT WITH IN REACH .CONTINUE TO MONITOR
[2019-05-10] MEDS: LATANOPROST(OPTH) 2.5 ML BTL OU SCH (20:40)
[2019-05-10] MEDS: INSULIN GLARGINE 100 UNITS/ML VIAL SQ SCH (21:00)
[2019-05-10] MEDS ORDERED: NON-FORMULARY MEDICATION (Insulin Detemir (Levemir) 10 UNITS) SC SCH (21:00)
[2019-05-10] MEDS ORDERED: METOPROLOL TARTRATE 50 MG TAB PO SCH (21:00)
[2019-05-10] MEDS: (Cyclosporine (Restasis) 1 DROP) OP SCH (21:00)
[2019-05-11 05:27] LABS: BASOPHILS % 0.5 % (0.0-1.0); EOSINOPHILS # (AUTO) 0.2 (0.0-0.4); EOSINOPHILS % 5.4 % (0.0-6.0); HEMATOCRIT 25.3 % (38.2-49.6); LYMPHOCYTES # (AUTO) 1.3 (1.0-3.2); LYMPHOCYTES % 32.2 % (18.0-39.1); MEAN CORPUSCULAR HEMOGLOBIN 29.2 pg (28-32); MEAN CORPUSCULAR HGB CONC 31.6 g/dL (31-35); MEAN CORPUSCULAR VOLUME 92.3 fL (81-99); MONOCYTES # (AUTO) 0.3 (0.2-0.8); MONOCYTES % 6.9 % (4.4-11.3); NEUTROPHILS # (AUTO) 2.1 (2.1-6.9); NEUTROPHILS % 53.5 % (38.7-80.0); PLATELET COUNT 84 x10e3/uL (140-360); RED BLOOD COUNT 2.74 x10e6/uL (4.3-5.7); RED CELL DISTRIBUTION WIDTH 19.9 % (11.7-14.4)
[2019-05-11 05:29] VITALS: BP 139/66
[2019-05-11 05:51] LABS: ANION GAP 13.6 mmol/L (8-16); CALCIUM 7.6 mg/dL (8.4-10.2); CREATININE, SERUM 4.99 mg/dL (0.72-1.25); POTASSIUM 3.6 mmol/L (3.5-5.1)
--- NOTE | 2019-05-11 05:54 | NUR ---
PT ASKED FOR ALLOPURINOL NOW ALLOPURINOL IS Q48 HRS .NOTIFIED DR TARIQ .PT WAS TAKING CORTISONE PT DOES NOT KNOW THE DOSAGE .WAITING FOR TO GET THE DOSAGE.
--- NOTE | 2019-05-11 07:19 | NUR ---
BEDSIDE REPORT GIVEN TO THE ONCOMING NURSE
[2019-05-11] MEDS: INSULIN LISPRO 100 UNIT/1 ML 3ML VIAL SQ SCH ×4 (07:30→22:00)
[2019-05-11 07:41] VITALS: BP 156/70
[2019-05-11] MEDS ORDERED: COLCRYS0.6 MG PO (07:47)
--- NOTE | 2019-05-11 08:27 | NUR ---
Clarified blood order with Dr. Oneal. Notified him of hemoglobin 8.0. Orders received to give one unit of blood with dialysis.
[2019-05-11] MEDS: BRIMONIDINE TARTRATE 0.15% OPTH DRPS 10ML BTL OP SCH ×2 (08:49→16:33)
[2019-05-11] MEDS: METOPROLOL TARTRATE 25 MG TAB PO SCH ×2 (08:49→16:33)
[2019-05-11] MEDS: DOCUSATE SODIUM 100 MG CAP PO SCH ×2 (08:49→16:32)
[2019-05-11] MEDS: AMLODIPINE BESYLATE 5 MG TAB PO SCH (08:49)
[2019-05-11] MEDS ORDERED: ATORVASTATIN 40 MG TAB PO SCH (09:00)
[2019-05-11] MEDS: (Cyclosporine (Restasis) 1 DROP) OP SCH ×2 (09:06→21:00)
[2019-05-11] MEDS: COLCHICINE 0.6 MG TAB PO SCH ×2 (09:06→16:33)
[2019-05-11] MEDS: ARTIFICIAL TEARS (OPTH) 15 ML BTL OU SCH ×4 (09:06→21:00)
[2019-05-11] MEDS ORDERED: SODIUM CHLORIDE 0.9% 250ML 250 ML IV ONE (09:30)
[2019-05-11 12:09] VITALS: BP 137/73
--- NOTE | 2019-05-11 13:58 | Progress Note ---
DATE: 05/11/2019 Cardiology Progress Note SUBJECTIVE: Undergoing dialysis today, status post EGD. Plans for likely additional GI evaluation with either CAT scan versus colonoscopy. OBJECTIVE: VITAL SIGNS: Temperature 98 degrees, heart rate 70, blood pressure 137/73, respiratory rate 20, and O2 saturation 96%. GENERAL: No acute distress. Alert. NECK: No JVD. CHEST: Clear to auscultation. CARDIOVASCULAR: Regular rate and rhythm. Normal S1 and S2. Systolic ejection murmur. ABDOMEN: Soft. Bowel sounds positive. EXTREMITIES: No edema. CARDIOVASCULAR MEDICATIONS: Reviewed. 1. Amlodipine 5 mg once daily. 2. Atorvastatin 80 mg at bedtime. 3. Metoprolol tartrate 25 mg b.i.d. STUDIES: Reviewed. Potassium 3.6, bicarbonate 25, creatinine 4.9, and glucose 92. White blood cells 3.9, hemoglobin 8, and platelets 84. ASSESSMENT: 1. A 63-year-old man presents with acute anemia in the setting of gastrointestinal bleed. 2. Coronary artery disease, status post drug-eluting stents. 3. Hypertension and dyslipidemia. 4. Pulmonary fibrosis. 5. Chronic systolic heart failure. 6. History of paroxysmal atrial fibrillation and nonsustained ventricular tachycardia. RECOMMENDATIONS: Continue current cardiovascular medications and proceed with GI evaluation. Ashu Donaldson MD [facility]/MODL /[id number]
[2019-05-11] MEDS ORDERED: PEG (High)/E-LYTE SOLN 4,000 ML BTL PO NR (14:00)
[2019-05-11] MEDS ORDERED: BISACODYL 5 MG TAB EC PO ONE ×3 (15:00→16:00)
--- NOTE | 2019-05-11 16:10 | NUR ---
Patient continues to complain of pain in right knee due to gout. Dr. Vernon called. New orders received. Patient is also refusing to take any further laxative for colonoscopy prep until pain in knee is kwasi
[2019-05-11 16:44] VITALS: BP 127/62
[2019-05-11] MEDS ORDERED: CITRATE OF MAGNESIA 300ML BOTTLE PO ONE ×2 (18:00→21:00)
[2019-05-11] MEDS: ACETAMINOPHEN/CODEINE 300MG - 30MG TAB PO PRN (18:11)
--- NOTE | 2019-05-11 19:15 | NUR ---
Patient visited in room during nursing rounds. Patient alert and oriented x3. Ambulatory in room using walker prn. Pt is legally blind. Pt has left arm AV fistula that is currently not being used (due to healing process) and covered with dressing (gauze). Right upper chest with temporary dialysis catheter. S/P dialysis today. Pt scheduled for Colonoscopy tomorrow by Dr. Christina Mckeon. Call arreola within reach. Will monitor closely.
[2019-05-11] MEDS: ALLOPURINOL 100 MG TAB PO SCH (20:37)
--- NOTE | 2019-05-11 20:45 | NUR ---
Pt signed consent form for Colonoscopy. Pt aware NPO at midnight.
[2019-05-11] MEDS: LATANOPROST(OPTH) 2.5 ML BTL OU SCH (21:00)
[2019-05-11] MEDS: INSULIN GLARGINE 100 UNITS/ML VIAL SQ SCH (21:00)
[2019-05-11 21:53] VITALS: BP 120/61
[2019-05-11 22:00] VITALS: BP 120/61
[2019-05-12] VITALS (8 sets, daily range): BP systolic 99–137; BP diastolic 59–73
[2019-05-12] MEDS: ACETAMINOPHEN/CODEINE 300MG - 30MG TAB PO PRN
--- NOTE | 2019-05-12 | NUR ---
Pt c/o right knee pain (9/10 on pain scale). Pt given Tylenol #3 1 tab.
--- NOTE | 2019-05-12 00:05 | NUR ---
Pt started to vomit clear liquid in basin at bedside. Pt requested for nausea medication. Dr Christina Mckeon at the unit and aware and ordered Zofran 8mg IV Q4hr prn.
--- NOTE | 2019-05-12 00:07 | NUR ---
Dr. Christina Mckeon visited pt and aware to be given Zofran for nausea. assessed pt and reminded pt of the Colonoscopy procedure today around noon.
[2019-05-12] MEDS: ONDANSETRON HCL INJ 2MG/ML 2ML 2 MG/ML VIAL IV PRN ×3 (00:08→16:52)
--- NOTE | 2019-05-12 00:08 | NUR ---
Pt given Zofran 8mg IV for nausea. Pt stated he felt a little better after vomiting episode.
--- NOTE | 2019-05-12 00:30 | NUR ---
Patient had another bowel movement (light brown in color). Pt aware need stool sample for occult blood test per MD order. Pt had another episode of vomiting at this time.
[2019-05-12] MEDS: INSULIN LISPRO 100 UNIT/1 ML 3ML VIAL SQ SCH ×4 (07:30→23:53)
[2019-05-12] MEDS: DOCUSATE SODIUM 100 MG CAP PO SCH ×2 (09:00→16:35)
[2019-05-12] MEDS: ARTIFICIAL TEARS (OPTH) 15 ML BTL OU SCH ×5 (09:00→21:00)
[2019-05-12] MEDS: BRIMONIDINE TARTRATE 0.15% OPTH DRPS 10ML BTL OP SCH ×3 (09:00→16:35)
[2019-05-12] MEDS: (Cyclosporine (Restasis) 1 DROP) OP SCH ×2 (09:00→21:00)
[2019-05-12] MEDS: COLCHICINE 0.6 MG TAB PO SCH ×2 (09:01→19:17)
[2019-05-12] MEDS: AMLODIPINE BESYLATE 5 MG TAB PO SCH (09:01)
[2019-05-12] MEDS: METOPROLOL TARTRATE 25 MG TAB PO SCH ×2 (09:01→19:17)
[2019-05-12 09:24] LABS: BASOPHILS % 0.3 % (0.0-1.0); EOSINOPHILS % 0.6 % (0.0-6.0); HEMATOCRIT 33.8 % (38.2-49.6); HEMOGLOBIN 11.2 g/dL (14.0-18.0); LYMPHOCYTES # (AUTO) 0.7 (1.0-3.2); LYMPHOCYTES % 20.1 % (18.0-39.1); MEAN CORPUSCULAR HEMOGLOBIN 30.6 pg (28-32); MEAN CORPUSCULAR HGB CONC 33.1 g/dL (31-35); MEAN CORPUSCULAR VOLUME 92.3 fL (81-99); MONOCYTES # (AUTO) 0.8 (0.2-0.8); MONOCYTES % 22.4 % (4.4-11.3); NEUTROPHILS # (AUTO) 1.9 (2.1-6.9); NEUTROPHILS % 55.1 % (38.7-80.0); PLATELET COUNT 111 x10e3/uL (140-360); RED BLOOD COUNT 3.66 x10e6/uL (4.3-5.7); RED CELL DISTRIBUTION WIDTH 19.8 % (11.7-14.4)
[2019-05-12 09:41] LABS: ANION GAP 14.5 mmol/L (8-16); CALCIUM 8.6 mg/dL (8.4-10.2); CREATININE, SERUM 4.52 mg/dL (0.72-1.25); POTASSIUM 3.5 mmol/L (3.5-5.1)
--- NOTE | 2019-05-12 14:13 | Operative Report ---
DATE OF PROCEDURE: 05/12/2019 SURGEON: César Mckeon MD PROCEDURES: Colonoscopy with fulguration of arteriovenous malformations and polypectomy. INDICATIONS FOR COLONOSCOPY: Anemia, melena, findings on EGD did not explain the patient's blood loss. MEDICATIONS: The patient was done under MAC, please see anesthesiologist's note. PROCEDURE IN DETAIL: With the patient in the left lateral decubitus position, a flexible fiberoptic Olympus colonoscope was inserted into the rectum with ease and advanced all the way to the cecum. An AVM was noted in the cecum and that was fulgurated with size 10-Namibian Gold Probe and there was some transient bleeding after the fulguration and site was hemoclipped x3. An additional AVM was noted in the proximal ascending colon that was also fulgurated with size 10-Namibian heater probe with excellent hemostasis. Approximately 5 mm sessile polyp in ascending colon was removed per hot snare polypectomy. Transverse and descending appeared to be within normal limits. One polyp was removed per hot snare polypectomy from the distal sigmoid colon. The rectum appeared to be within normal limits. The scope was then retroflexed into the distal rectum and small internal hemorrhoids were noted, none of which was actively bleeding. The scope was then straightened out, it was subsequently withdrawn, and the patient tolerated the procedure well. IMPRESSION: 1. Arteriovenous malformation, cecum, fulgurated with size 10-Namibian heater probe and hemoclipped x3. 2. Ascending colon arteriovenous malformation fulgurated with size 10-Namibian heater probe. 3. Ascending colon approximately 5 mm sessile polyp removed per hot snare polypectomy. 4. Sigmoid colon polyp removed per hot snare polypectomy. 5. Internal hemorrhoids, none actively bleeding. PLAN: Follow up histology. Follow up H and H. The patient might benefit from a followup colonoscopy in 3 to 5 years. César Mckeon MD [facility] [place] /[id number] cc: Gabe Vernon MD
[2019-05-12] MEDS ORDERED: ATORVASTATIN 40 MG TAB PO SCH (21:00)
[2019-05-12] MEDS: INSULIN GLARGINE 100 UNITS/ML VIAL SQ SCH (23:53)
[2019-05-13] MEDS: LATANOPROST(OPTH) 2.5 ML BTL OU SCH (00:09)
[2019-05-13] MEDS: ALLOPURINOL 100 MG TAB PO SCH (00:10)
[2019-05-13 01:16] VITALS: BP 110/68
[2019-05-13 05:42] VITALS: BP 104/61
[2019-05-13] MEDS: INSULIN LISPRO 100 UNIT/1 ML 3ML VIAL SQ SCH ×2 (07:30→12:28)
[2019-05-13 08:01] VITALS: BP 98/62
[2019-05-13 08:21] VITALS: BP 98/62
--- NOTE | 2019-05-13 08:43 | NUR ---
HEMATOLOGY/ONCOLOGY PROGRESS NOTE: Reason for consult: Anemia, Pancytopenia HPI: Patient resting comfortably, denies any new complaints. Review of Systems: 12 point ROS negative unless otherwise stated in HIP. Physical Exam: Vitals: Reviewed per EMR. General: Awake, Alert, NAD HEENT: NC, AT Cardiovascular: RRR Pulmonary: Decreased breath sounds bilaterally Abdomen: Soft, NTND, BS x 4 Extremities: Moves all Neuro: Awake, Alert Psych: Cooperative Labs: 05/12/19: WBC: 3.39 Hgb: 11.2 Hct: 33.8 Platelet: 111 Hepatitis panel: Negative Reticulocyte count: 2.5 FOBT: Negative 05/09/19: Iron: 96 Fe % Sat: 34 TIBC: 283 Ferritin: 1928 COLONOSCOPY: IMPRESSION: 1. Arteriovenous malformation, cecum, fulgurated with size 10-Greenlandic heater probe and hemoclipped x3. 2. Ascending colon arteriovenous malformation fulgurated with size 10-Greenlandic heater probe. 3. Ascending colon approximately 5 mm sessile polyp removed per hot snare polypectomy. 4. Sigmoid colon polyp removed per hot snare polypectomy. 5. Internal hemorrhoids, none actively bleeding. Assessment and Plan: Mr. Joseph is very pleasant 63 year old male with past medical history of hypertension, diabetes mellitus, ESRD recently started on Dialysis in Dec 2018, atrial fibrillation on Eliquis, pulmonary fibrosis, rheuma toid arthritis, coronary artery disease s/p stents on ASA/Plavix who presented to the ER at [facility] after being called with abnormal lab results of low hemoglobin. He reports he had labs drawn on Thursday and was called Thursday mor prior to dialysis and told to go to the ER instead of coming to dialysis that morning. Patient denies any symptoms including SOB, CP, abdominal pain. He does report some dark stools however says he does not look at his stools often. Patient hemoglobin was 5.0, patient was given 1 unit PRBC with dialysis yesterday. Laboratory results also revealed leukopenia and thrombocytopenia. Hematology/Oncology has been consulted to assist with management. 1. Pancytopenia: Uncertain etiology. Patient reportedly recently started Methotrexate therapy for rheumatoid arthritis. Potential bone marrow suppression . Will continue to monitor closely. 2. Anemia: Likely combination of AOCD secondary to ESRD, chronic inflammation secondary to RA, with component of GIB. Patient reports 4 days of dark stools upon admission. Hemoglobin 5 upon admission. S/P 3 unit PRBC total with hemoglobin improved to 11.2. Anemia panel reveals severely elevated ferritin, li jose luis as acute phase reactant. Will hold IV iron secondary to elevated ferritin. Peripheral smear with rare schistocytes, less likely hemolysis however due to reticulocyte count and LDH mildly elevated, haptoglobin level has been requested to rule out hemolysis. FOBT negative, GI bleed scan negative, EGD with no evidence of acute bleed. Colonscopy with cecum and ascending colon AVM cauterized along with polyps removed and internal hemorrhoids noted. Follow up pathology from [facility]. GI on board. Will continue to monitor closely. 3. Leukopenia: Combination neutropenia and lymphocytopenia. Patient is afebrile. Counts stable and mild. If counts do not improve may require further workup outpatient including flow cyto/FISH. Will consider GCSF support if counts trend down. Recommend avoiding drugs that cause leukopenia. Monitor. 4. Thrombocytopenia: Uncertain etiology. CT abd/pelvis from 03/31/19 negative for splenomegaly or hepatic lesions/cirrhosis. Hepatitis panel negative. No coagulopathy noted. Improving now mildly low. Monitor for now. 5. Atrial Fibrillation: S/p Cardiac ablation. Rate controlled. On Eliquis outpatient, currently on hold due to anemia. Cardiology on board. 4. ESRD: On HD. May benefit from Procrit therapy for H&H less than 12/08. Nephrology on board. 5. DVT Proph: SCDs for now secondary to anemia. 6. Medical Management: Per primary. Above plan discussed with Dr. Roman. Thank you for the consult. I will be available. Please call with questions.
[2019-05-13] MEDS: (Cyclosporine (Restasis) 1 DROP) OP SCH (09:00)
[2019-05-13] MEDS: AMLODIPINE BESYLATE 5 MG TAB PO SCH (09:00)
[2019-05-13] MEDS: ARTIFICIAL TEARS (OPTH) 15 ML BTL OU SCH ×2 (09:00→13:00)
[2019-05-13] MEDS: DOCUSATE SODIUM 100 MG CAP PO SCH (09:00)
[2019-05-13] MEDS: METOPROLOL TARTRATE 25 MG TAB PO SCH (09:00)
[2019-05-13] MEDS: COLCHICINE 0.6 MG TAB PO SCH (09:00)
[2019-05-13] MEDS: BRIMONIDINE TARTRATE 0.15% OPTH DRPS 10ML BTL OP SCH (09:37)
--- NOTE | 2019-05-13 10:08 | NUR ---
IMM letter delivered and explained to pt. He verbalized understanding, states that he is ready to go home. Signed copy placed in chart. Copy to pt.
[2019-05-13 11:57] VITALS: BP_SYST 118; BP_SYST 89; BP_DIAS 58; BP_DIAS 80
--- NOTE | 2019-05-13 11:57 | NUR ---
Manual B/P taken. 118/80. Will continue to monitor.
--- NOTE | 2019-05-13 15:00 | NUR ---
Dr. Oneal cleared to discharge from nephrology standpoint. Hemodialysis scheduled by patient tomorrow (05/14/19) at outpatient center.
--- NOTE | 2019-05-13 15:38 | NUR ---
Patient discharged home. Leaves unit at 1538 in wheelchair to family member's private vehicle. AAOx4. 97.5 oral temp, 74 bpm, 118/80, 18 RR, 97% O2 on RA. Discharge instructions and education provided. Verbalizes understanding. IV discontinued and no signs of infiltration.
--- NOTE | 2019-05-13 18:18 | Progress Note ---
DATE: 05/13/2019 Cardiology Progress Note SUBJECTIVE: Yves denies any chest discomfort or shortness of breath. He denies recurrent bleeding. OBJECTIVE: VITAL SIGNS: Temperature 96.7, heart rate 81, blood pressure 198/62, respiratory rate 20, and O2 saturation 98%. GENERAL: No acute distress. Alert. NECK: No JVD. CHEST: Clear to auscultation. CARDIOVASCULAR: Regular rate and rhythm. Normal S1 and S2. Systolic ejection murmur /6. No S3. No S4. ABDOMEN: Soft. Bowel sounds positive. EXTREMITIES: No edema. Warm extremities. CARDIOVASCULAR MEDICATIONS: Reviewed. Amlodipine 5 mg daily, atorvastatin 80 mg at bedtime, and metoprolol tartrate 25 mg b.i.d. STUDIES: Reviewed. Sodium 141, potassium 3.5, chloride 100, bicarbonate 30, BUN 20, creatinine 4.5, and glucose 165. White blood cells 3.3, hemoglobin 11.2, and platelets of 111. PT 13.3 and INR 0.96. AST 15, ALT 100, and alkaline phosphatase 68. ASSESSMENT AND PLAN: 1. A 63-year-old man presents with gastrointestinal bleed in the setting of arteriovenous malformation, status post clipping and treatment by endovascular route by Dr. Mckeon. 2. Diabetes mellitus. 3. Hypertension. 4. Paroxysmal atrial fibrillation. 5. Nonsustained ventricular tachycardia, history. 6. Chronic systolic heart failure. 7. Pulmonary fibrosis. 8. Rheumatoid arthritis. 9. Coronary artery disease, status post drug-eluting stent PCI, history. RECOMMEND: 1. Discussed with the patient and coordinating care with GI and primary service. Recommend the following given treatment AVM with stable H and H and no recurrent bleeding, advised on resuming clopidogrel 75 mg daily after 3 additional days if no recurrent bleeding. Similarly, advised on resuming Eliquis at the patient's home dose after a total of 10 days from clipping if no bleeding occurs. 2. Outpatient followup advised in 3 to 4 weeks post discharge and to be considered via telemedicine as needed given ongoing COVID-19 pandemia with community spread. 3. Continue rest of cardiovascular medications. Ashu Donaldson MD [facility]/MODL /[id number]
--- NOTE | 2019-05-13 20:44 | Discharge Summary ---
PRIMARY CARE DOCTOR: Jayashree Sanchez MD FINAL DIAGNOSES: 1. Acute blood loss anemia due to colonic arteriovenous malformation, status post treatment. 2. End stage renal disease. 3. Coronary artery disease with previous stent. 4. Paroxysmal atrial fibrillation, status post ablation. 5. Gout flare, resolved. SECONDARY DIAGNOSIS: Pancytopenia. CONSULTANTS: 1. Dr. Olson, Cardiology. 2. Dr. Oneal, Nephrology. 3. Dr. Roman, Hematology. 4. Dr. César Mckeon, GI. PROCEDURE/STUDIES PERFORMED: 1. 4 units of packed red blood cell transfusion. 2. Colonoscopy. 3. EGD. 4. Bleeding scan, which was negative. HISTORY: Per H and P. HOSPITAL COURSE: The patient required 4 units of blood. Now, his hemoglobin is stable. EGD was okay. Colonoscopy shows AVM, which was burn. The patient also initially had pancytopenia. It is possible that this is due to methotrexate. The patient was dialyzed. Initially, his aspirin, Plavix, and Eliquis were held. At this time, the patient was told to restart his Plavix in 3 days and to restart his Eliquis in 10 days and do not take aspirin anymore. The patient was seen and examined today. I have discussed this case with Dr. Mckeon and Dr. Olson. I have also updated his primary care doctor about this hospitalization. The patient was seen and examined today. It took 33 minutes total to discharge this patient. CONDITION ON DISCHARGE: Improved. DISCHARGE MEDICATIONS: Please see medication reconciliation form. MD YE [place]/[facility]AS[facility]Z /[id number] cc: [facility]
== END 2019-05-13 16:32 | disposition home or self-care (01) | DRG 377 ==
LOC: ER 06:34 → ERHOLD 07:37 → ER 10:01 → MED/SURG2 10:55 → OBSVTOIN 05-10 13:47
PROVIDERS: ADMIT Internal Medicine; ATTEND Internal Medicine
PROC: 30233N1 Transfusion of Nonautologous Red Blood Cells into Peripheral Vein, Percutaneous Approach (ICD-10-PCS; 2019-05-09)
PROC: 0DB68ZX Excision of Stomach, Via Natural or Artificial Opening Endoscopic, Diagnostic (ICD-10-PCS; 2019-05-10)
PROC: 0DB78ZX Excision of Stomach, Pylorus, Via Natural or Artificial Opening Endoscopic, Diagnostic (ICD-10-PCS; 2019-05-10)
PROC: 5A1D70Z Performance of Urinary Filtration, Intermittent, Less than 6 Hours Per Day (ICD-10-PCS; principal; 2019-05-10 08:00)
PROC: 0D5K8ZZ Destruction of Ascending Colon, Via Natural or Artificial Opening Endoscopic (ICD-10-PCS; 2019-05-12)
PROC: 0D5H8ZZ Destruction of Cecum, Via Natural or Artificial Opening Endoscopic (ICD-10-PCS; 2019-05-12)
PROC: 0DBN8ZZ Excision of Sigmoid Colon, Via Natural or Artificial Opening Endoscopic (ICD-10-PCS; 2019-05-12)
DX: K55.21 Angiodysplasia of colon with hemorrhage (principal); N18.6 End stage renal disease; D61.811 Other drug-induced pancytopenia; D62 Acute posthemorrhagic anemia; I12.0 Hypertensive chronic kidney disease with stage 5 chronic kidney disease or end stage renal disease; I25.10 Atherosclerotic heart disease of native coronary artery without angina pectoris; E78.5 Hyperlipidemia, unspecified; M06.9 Rheumatoid arthritis, unspecified; Z99.2 Dependence on renal dialysis; Z88.0 Allergy status to penicillin; K44.9 Diaphragmatic hernia without obstruction or gangrene; K31.7 Polyp of stomach and duodenum; K29.80 Duodenitis without bleeding; Z95.5 Presence of coronary angioplasty implant and graft; D63.1 Anemia in chronic kidney disease; J84.10 Pulmonary fibrosis, unspecified; I48.0 Paroxysmal atrial fibrillation; E11.22 Type 2 diabetes mellitus with diabetic chronic kidney disease; M10.9 Gout, unspecified
CPT/HCPCS: 36415; 43239; 45385; 78278; 80048; 80053; 82270; 82607; 82728; 82746; 82948; 83010; 83036; 83540; 83615; 84466; 85014; 85025; 85045; 85610; 86850; 86900; 86920; 88305; 88312; 96372; 99284; A9512; G0378; J1644; J1815; J2001; J2405; J2765; J7030; J7040; J7050; P9016

== ENCOUNTER → 2019-05-19 | Day surgery (SDC) | payer MEDICARE ==
[~2019-05-19] MED LIST changes: +HYOSCYAMINE 0.125 MG TAB ONE; +PHENYLEPHRINE HCL 1% 10 MG/ML VIAL ONE; +PROPOFOL IV EMULSION 10 MG/ML 50 ML VIAL ONE; +SODIUM CHLORIDE 0.9% 500ML 500 ML ONE
[2019-05-19 11:55] VITALS: BP 140/65
--- NOTE | 2019-05-19 12:25 | Operative Report ---
DATE OF PROCEDURE: 05/19/2019 SURGEON: César Mckeon MD PROCEDURE: Colonoscopy with polypectomy and biopsies. INDICATIONS FOR COLONOSCOPY: History of polyp with high-grade dysplasia on previous recent colonoscopy. Colonoscopy is being carried out to remove any residual polypoid tissue. MEDICATIONS: The patient was done under MAC, please see anesthesiologist's note. PROCEDURE IN DETAIL: With the patient in left lateral decubitus position, the flexible fiberoptic Olympus colonoscope was inserted into the rectum with ease and advanced all the way to the cecum. There was a large amount of retained fecal material throughout the colon. The ascending colon, though visualization was fair and the polypectomy site in the ascending colon was identified and that was extensively biopsied and was tattooed. A small polyp was noted just proximal to the polypectomy site that was removed per hot snare polypectomy. The scope was subsequently withdrawn. The patient tolerated the procedure well. IMPRESSION: 1. Poor prep. 2. Polypectomy site, ascending colon identified, extensively biopsied and tattooed. 3. Minute polyp, ascending colon, hot snared. PLAN: Follow up histology. Timing of followup colonoscopy pending pathology report. César Mckeon MD [facility] [place] /[id number] cc: Jayashree Sanchez MD
== END | disposition home or self-care (01) ==
LOC: OR 09:23
PROVIDERS: ATTEND Internal Medicine Gastroenterology
DX: D12.2 Benign neoplasm of ascending colon (principal); K52.9 Noninfective gastroenteritis and colitis, unspecified; K63.3 Ulcer of intestine; K57.90 Diverticulosis of intestine, part unspecified, without perforation or abscess without bleeding; K59.00 Constipation, unspecified; K46.9 Unspecified abdominal hernia without obstruction or gangrene; K75.81 Nonalcoholic steatohepatitis (NASH); G47.33 Obstructive sleep apnea (adult) (pediatric); J84.10 Pulmonary fibrosis, unspecified; D64.9 Anemia, unspecified; D61.818 Other pancytopenia; I25.2 Old myocardial infarction; I48.91 Unspecified atrial fibrillation; E78.5 Hyperlipidemia, unspecified; E11.22 Type 2 diabetes mellitus with diabetic chronic kidney disease; I13.2 Hypertensive heart and chronic kidney disease with heart failure and with stage 5 chronic kidney disease, or end stage renal disease; I50.9 Heart failure, unspecified; N18.6 End stage renal disease; M10.9 Gout, unspecified; H40.9 Unspecified glaucoma; M06.9 Rheumatoid arthritis, unspecified; Z88.0 Allergy status to penicillin; Z79.02 Long term (current) use of antithrombotics/antiplatelets; Z79.4 Long term (current) use of insulin; Z79.82 Long term (current) use of aspirin; Z99.2 Dependence on renal dialysis; Z87.891 Personal history of nicotine dependence
CPT/HCPCS: 36415; 45380; 45381; 45385; 82948; 84132; J2370; J2704; J7040; 45378

== ENCOUNTER 2020-09-29 09:27 | Emergency (ER) | payer MEDICARE ==
[~2020-09-29] VITALS: Ht 165.1 cm; Wt 79.4 kg
[~2020-09-29 09:27] MED LIST changes: -HYOSCYAMINE 0.125 MG TAB ONE; -PHENYLEPHRINE HCL 1% 10 MG/ML VIAL ONE; -PROPOFOL IV EMULSION 10 MG/ML 50 ML VIAL ONE; -SODIUM CHLORIDE 0.9% 500ML 500 ML ONE
[2020-09-29 10:27] LABS: BASOPHILS % 0.1 % (0.0-1.0); EOSINOPHILS % 0.4 % (0.0-6.0); HEMATOCRIT 32.8 % (38.2-49.6); HEMOGLOBIN 10.6 g/dL (14.0-18.0); LYMPHOCYTES # (AUTO) 0.7 (1.0-3.2); LYMPHOCYTES % 10.5 % (18.0-39.1); MEAN CORPUSCULAR HEMOGLOBIN 30.8 pg (28-32); MEAN CORPUSCULAR HGB CONC 32.3 g/dL (31-35); MEAN CORPUSCULAR VOLUME 95.3 fL (81-99); MONOCYTES # (AUTO) 0.7 (0.2-0.8); MONOCYTES % 10.3 % (4.4-11.3); NEUTROPHILS # (AUTO) 5.5 (2.1-6.9); NEUTROPHILS % 78.1 % (38.7-80.0); PLATELET COUNT 101 x10e3/uL (140-360); RED BLOOD COUNT 3.44 x10e6/uL (4.3-5.7); RED CELL DISTRIBUTION WIDTH 15.9 % (11.7-14.4)
[2020-09-29 10:54] LABS: ALBUMIN 2.7 g/dL (3.5-5.0); ALBUMIN/GLOBULIN RATIO 0.7 (0.8-2.0); CALCIUM 8.9 mg/dL (8.4-10.2); CREATININE, SERUM 13.14 mg/dL (0.72-1.25)
[2020-09-29 11:01] LABS: CREATINE KINASE MB 1.1 ng/mL (0-5.0)
[2020-09-29] MEDS ORDERED: SOD POLYSTYRENE SULFONATE SUSP 15 GM/60 ML BTL PO NR (11:15)
[2020-09-29 11:58] VITALS: BP 167/71
== END 2020-09-29 12:00 | disposition home or self-care (01) ==
LOC: ER 09:45
DX: R06.02 Shortness of breath (principal); I12.0 Hypertensive chronic kidney disease with stage 5 chronic kidney disease or end stage renal disease; E11.22 Type 2 diabetes mellitus with diabetic chronic kidney disease; N18.6 End stage renal disease; Z99.2 Dependence on renal dialysis; I48.91 Unspecified atrial fibrillation; I25.10 Atherosclerotic heart disease of native coronary artery without angina pectoris; D64.9 Anemia, unspecified; F41.9 Anxiety disorder, unspecified; K21.9 Gastro-esophageal reflux disease without esophagitis; Z95.5 Presence of coronary angioplasty implant and graft
CPT/HCPCS: 36415; 71045; 80053; 82550; 82553; 82948; 83880; 84484; 85025; 87040; 93005; 99282; U0002

== ENCOUNTER 2023-01-02 14:48 | Emergency (ER) | payer MEDICARE ==
[~2023-01-02] VITALS: Ht 165.1 cm; Wt 79.4 kg
[2023-01-02] MEDS ORDERED: NITROGLYCERIN 2% OINT 1 GM PKT TOP ONE ×2 (15:15→17:00)
[2023-01-02 15:35] LABS: BASOPHILS % 0.1 % (0.0-1.0); HEMATOCRIT 36.4 % (38.2-49.6); HEMOGLOBIN 11.4 g/dL (14.0-18.0); LYMPHOCYTES # (AUTO) 0.3 (1.0-3.2); LYMPHOCYTES % 2.3 % (18.0-39.1); MEAN CORPUSCULAR HEMOGLOBIN 30.1 pg (28-32); MEAN CORPUSCULAR HGB CONC 31.3 g/dL (31-35); MONOCYTES # (AUTO) 0.7 (0.2-0.8); MONOCYTES % 4.7 % (4.4-11.3); NEUTROPHILS # (AUTO) 13.3 (2.1-6.9); NEUTROPHILS % 92.6 % (38.7-80.0); PLATELET COUNT 174 x10e3/uL (140-360); RED BLOOD COUNT 3.79 x10e6/uL (4.3-5.7); RED CELL DISTRIBUTION WIDTH 16.9 % (11.7-14.4); WHITE BLOOD COUNT 14.36 x10e3/uL (4.8-10.8)
[2023-01-02 16:00] LABS: ALBUMIN 3.3 g/dL (3.5-5.0); ALBUMIN/GLOBULIN RATIO 0.8 (0.8-2.0); ANION GAP 30.1 mmol/L (8-16); BILIRUBIN,TOTAL 0.9 mg/dL (0.2-1.2); CALCIUM 8.7 mg/dL (8.4-10.2); CREATININE, SERUM 11.87 mg/dL (0.72-1.25); TOTAL PROTEIN 7.3 g/dL (6.5-8.1)
[2023-01-02 16:03] LABS: POTASSIUM 5.1 mmol/L (3.5-5.1)
[2023-01-02 16:09] LABS: LYMPHOCYTES % (MANUAL) 3 % (19-48); MONOCYTES % (MANUAL) 5 % (3.4-9.0); NEUTROPHILS % (MANUAL) 91 % (40-74); PLATELET ESTIMATE ADEQUATE; PLATELET MORPHOLOGY COMMENT NORMAL; RBC MORPHOLOGY COMMENT NORMAL; REACTIVE LYMPHOCYTES 1
[2023-01-02 16:11] LABS: TROPONIN I 1.476 ng/mL (0-0.300)
[2023-01-02] MEDS ORDERED: CEFEPIME 2 GM in SODIUM CHLORIDE 0.9% 100 ML IV ONE (16:15)
[2023-01-02] MEDS ORDERED: ASPIRIN 81 MG CHEW TAB PO ONE (16:30)
[2023-01-02] MEDS ORDERED: VANCOMYCIN 1.5 GM/300 ML 300 ML IV ONE (16:50)
[2023-01-02 17:00] VITALS: BP 179/89
[2023-01-02 17:07] VITALS: PULSE 90; RESP 21; O2SAT 97
[2023-01-02 19:50] VITALS: O2SAT 98
== END 2023-01-02 19:50 | disposition other institution (70) ==
LOC: ER 15:10
DX: I12.0 Hypertensive chronic kidney disease with stage 5 chronic kidney disease or end stage renal disease (principal); E11.22 Type 2 diabetes mellitus with diabetic chronic kidney disease; E11.65 Type 2 diabetes mellitus with hyperglycemia; N18.6 End stage renal disease; Z99.2 Dependence on renal dialysis; R09.02 Hypoxemia; J44.9 Chronic obstructive pulmonary disease, unspecified; I50.9 Heart failure, unspecified; I48.91 Unspecified atrial fibrillation; I25.10 Atherosclerotic heart disease of native coronary artery without angina pectoris; D64.9 Anemia, unspecified; F41.9 Anxiety disorder, unspecified; K21.9 Gastro-esophageal reflux disease without esophagitis; Z20.822 Contact with and (suspected) exposure to COVID-19; Z95.5 Presence of coronary angioplasty implant and graft; J81.1 Chronic pulmonary edema; R79.89 Other specified abnormal findings of blood chemistry
CPT/HCPCS: 36415; 36600; 71045; 80053; 83605; 83690; 83880; 84484; 85025; 87040; 87071; 87205; 87400; 93005; 94660; 94799; 99284; J0692; J7050; U0002